=== PATIENT | female | born 1975 | race Caucasian/White ===

== ENCOUNTER 2016-06-21 04:12 | Observation (INO) ==
--- NOTE | 2016-06-21 04:34 | Emergency Department Note ---
Disposition Clinical Impression: Aspiration pneumonia, Vomiting Disposition: Admitted As Inpatient Condition: Fair Referrals: Nadira Glynn MD [Primary Care Provider] - Time of Disposition: 06:03 ([facility]) SOB HPI - General Stated Complaint: Possible aspiration Time Seen by Provider: 06/21/16 04:15 Source: EMS, other (correction) Mode of arrival: EMS Limitations: no limitations Nursing Notes Reviewed: Yes Vital Signs Reviewed: Yes - History of Present Illness Patient sent in from local correction for vomiting and risk of aspiration and have a decreased saturation they did not have access to suctioning she has a feeding tube in and quadriplegia patient unable to provide us with any other history Last bowel movement was approximately yesterday they said large in size they were doing to feeds and vomitus material was consistent with tube feeds Pt Subjective Complaint: shortness of breath (and reported hypoxia) Onset (ago): Just [employer] Context: other (vomitng episode) Severity: severe Consistency/Duration: gradually worsening Improves with: nothing Worsens with: lying flat, movement, other (vomiting) Known history of: recurrent pneumonia, aspiration pneumonia Associated symptoms: Reports: cough, sputum production Treatment prior to arrival: oxygen, bronchodilator Cough present: No Sputum production: No - Related Data Home Medications Medication Instructions Recorded Confirmed Atropine 1% Opth Drops 1 - 2 drp SL Q4-6H PRN 04/02/15 05/05/15 Baclofen [Lioresal] 20 mg GTUBE TID 04/02/15 05/05/15 Calcitonin-[place], Synthetic 1 spray IH DAILY 04/02/15 05/05/15 [Miacalcin] Lamotrigine [Lamictal] 300 mg GTUBE BID 04/02/15 05/05/15 Multivit/Ca/Min/Fe/FA [Thera M 1 each GTUBE DAILY 04/02/15 05/05/15 Plus] Polyethylene Glycol 3350 [MiraLAX] 17 gm GTUBE BID 04/02/15 05/05/15 Albuterol Neb [Proventil Neb] 10 mg RC PRN PRN 05/05/15 05/05/15 Diazepam [Diastat] 2.5 mg RC 05/05/15 05/05/15 Calcitonin,[place],Synthetic 200 units IN DAILY 02/17/16 02/17/16 [Calcitonin-[place]] Calcium Carbonate/Vitamin D3 1 tab PO DAILY 02/17/16 02/17/16 [Oyster Shell Calcium-Vit D Tab] Cholecalciferol (Vitamin D3) 2,000 unit PO DAILY 02/17/16 02/17/16 [Vitamin D3] Diazepam [Diastat Acudial] 10 mg IR PRN 02/17/16 DiphenhydraMINE [Benadryl] 25 mg PO Q6HR PRN 02/17/16 02/17/16 Loperamide [Imodium] 2 mg PO 02/17/16 Lovastatin [Mevacor] 20 mg PO HS 02/17/16 02/17/16 Pseudoephedrine [Sudafed] 60 mg PO Q6H PRN 02/17/16 02/17/16 Previous Rx's Medication Instructions Recorded Loratadine [Claritin] 10 mg GTUBE DAILY PRN #0 05/07/15 Magnesium Hydroxide [Milk of 15 ml GTUBE Q48H 365 Days 05/07/15 Magnesia] Allergies Allergy/AdvReac Type Severity Reaction Status Date / Time No Known Allergies Allergy Verified 05/05/15 20:33 Limitations: ROS unobtainable due to patients medical condition (except that women's health care nurse practitioner stated vomiting) Past Medical History - Past Medical History Attestation: Yes The following information was validated with the patient. Source: patient, old records reviewed, nursing notes reviewed Medical history: Reports: seizures, other (MRDD quadraplegia contractures of all extremitins) Psychiatric history: Reports: no psych history - Social History Smoking Status: Never smoker Smokeless Tobacco Status: No Alcohol use: Reports: none Drug use: Reports: none Physical Exam - General Limitations: language barrier, altered mental status, physical limitation General appearance: alert, in no apparent distress, other (no vomitng on example ) - Head Head exam: atraumatic, normocephalic, normal inspection - Eye Eye exam: Present: normal appearance, PERRL, EOMI - ENT ENT exam: normal exam, normal oropharynx, mucous membranes moist, TM's normal bilaterally, normal external ear exam - Neck Neck exam: Present: normal inspection, full ROM, trachea midline - Chest Chest inspection: Present: normal inspection, symmetric chest wall rise - Respiratory Respiratory exam: Present: wheezes, prolonged expiratory phase, other (rhonchi) - Cardiovascular Cardiovascular exam: Present: regular rate, normal rhythm, normal heart sounds - Abdominal Exam Abdominal exam: Present: soft, Non-Tender, normal bowel sounds, other (feeding tube present but when functioned no gstric contents) - Extremities Exam Extremities exam: Present: normal capillary refill, other (flexion contractions of the upper extremitinesand of the lower appearancelike that of extensions) - Expanded Lower Extremity Exam Neurovascular/Tendon exam: Present: normal capillary refill, normal fine/light touch. Absent: pulse deficit, motor deficit Gait: negative: observed and normal - Back Exam Back exam: Present: normal inspection, full ROM. Absent: muscle spasm - Neurological Exam Neurological exam: Present: alert, CN II-XII intact - Psychiatric Psychiatric exam: Present: flat affect, other (nonverbal) - Skin Skin exam: Present: warm, dry, intact, normal color Course Course Narrative: pt seen and examined and xrays and lab obtained when xrays reviled possible thickening between the loops then revaluation per ct was done to r/o obstruction - Reevaluation(s) Reevaluation #1: spoke with Dr Pimentel and admitted for obsv and transferred to [facility] Vital Signs Temperature 96.8 F L 06/21/16 04:15 Pulse Rate 64 06/21/16 04:15 Respiratory Rate 16 06/21/16 04:15 Blood Pressure 115/111 06/21/16 04:15 O2 Sat by Pulse Oximetry 97 06/21/16 04:15 Temperature 96.8 F L 06/21/16 04:15 Pulse Rate 64 06/21/16 04:15 Respiratory Rate 16 06/21/16 04:15 Blood Pressure 115/111 06/21/16 04:15 O2 Sat by Pulse Oximetry 97 06/21/16 04:15 Oxygen Delivery Oxygen Delivery Room Air Shortness of Breath/Dyspnea - MDM Narrative Medical decision making narrative: pneumonia vs aspiration pneumonia - Medical Records Medical records reviewed: Yes I reviewed the patient's medical records. - Lab Data Lab results reviewed: Yes I reviewed the patient's lab results. - Radiology Data Radiology results reviewed: Yes I reviewed the patient's radiology results. ITS Impressions Chest X-Ray 06/21/16 04:24 IMPRESSION: Limited study with focal peripheral opacity at the left lung base which may represent atelectasis or developing pneumonia. Recommend follow-up as D/ / Angel Cobian MD / Angel Cobian MD Interpreting Provider: Angel Cobian MD KUB X-Ray 06/21/16 04:24 IMPRESSION: Nonspecific nonobstructive bowel gas pattern Peg tube appears grossly unchanged in position Incidental note of cholelithiasis D/ / Angel Cobian MD / Angel Cobian MD Interpreting Provider: Angel Cobian MD Abdomen/Pelvis CT 06/21/16 04:36 IMPRESSION: 1. Left lower lobe centrilobular nodules could indicate aspiration or atypical infection. 2. Bilateral nonobstructing renal calculi with atrophy of the right kidney. 3. Cholelithiasis and gallbladder sludge with no CT evidence for acute cholecystitis. D/ / Keven Machuca MD / Keven Machuca MD Interpreting Provider: Keven Machuca MD Critical Care Time Critical Care Time: No
[2016-06-21 05:21] LABS: Basophils # 0.1 K/mcL (0.0-0.2); Basophils % 1.1 %; Eosinophils # 0.2 K/mcL (0.0-0.6); Eosinophils % 4.2 %; Hematocrit 45.8 % (35.3-44.9); Hemoglobin 15.1 g/dL (11.5-15.4); Immature Granulocytes % 0.2 % (0-4); Lymphocytes # 2.8 K/mcL (0.6-4.6); Lymphocytes % 50.4 %; Mean Corpuscular Hemoglobin 31.5 pg (28.0-33.3); Mean Corpuscular Volume 95.6 fL (83.0-100.0); Monocytes # 0.3 K/mcL (0.0-1.3); Monocytes % 5.5 %; Neutrophils # 2.1 K/mcL (1.6-8.9); Platelet Count 278 K/mcL (140-400); Red Blood Count 4.79 M/mcL (3.82-4.97); Red Cell Distribution Width 15.4 % (11.5-14.5); Segmented Neutrophils % 38.6 %
[2016-06-21 05:27] LABS: Prothrombin Time 11.1 Seconds (9.4-12.1)
[2016-06-21] MEDS ORDERED: CefTRIAXone 1,000 MG in D5% in Water (Mini-Bag+) 100 ML IVPB ONE (05:28)
[2016-06-21] MEDS ORDERED: Azithromycin 500 MG in D5% in Water 250 ML IVPB ONE ×2 (05:28→07:14)
[2016-06-21] MEDS ORDERED: 0.9 % Sodium Chloride 1,000 ML IVC SCH ×2 (05:30→07:14)
[2016-06-21 05:38] LABS: BUN/Creatinine Ratio 30 (6-26); Blood Urea Nitrogen 29 mg/dL (7-20); Calcium 10.7 mg/dL (8.6-10.8); Carbon Dioxide 25 mEq/L (19-29); Chloride 106 mEq/L (98-109); Glucose 73 mg/dL (70-99); Osmolality,Calculated 302 (280-300); Potassium 4.4 mEq/L (3.5-4.5); Sodium 144 mEq/L (136-145); eGFR For African Americans > 60 (> 60); eGFR For Non-African Americans > 60 (> 60)
[2016-06-21] MEDS ORDERED: Ondansetron 4 MG/2 ML VIAL IVP PRN (07:14)
[2016-06-21] MEDS ORDERED: Naloxone 0.4 MG/ML INJ IVP PRN (07:14)
[2016-06-21] MEDS ORDERED: *HR* Promethazine 25 MG/ML VIAL IVP PRN (07:14)
[2016-06-21] MEDS ORDERED: *HR* Morphine 2 MG/ML SYRINGE IVP PRN (07:14)
[2016-06-21] MEDS ORDERED: Azithromycin 500 MG in D5% in Water 250 ML IVPB SCH (07:30)
[2016-06-21] MEDS ORDERED: CefTRIAXone 1,000 MG in D5% in Water (Mini-Bag+) 100 ML IVPB SCH (08:30)
[2016-06-21] MEDS ORDERED: Pantoprazole 40 MG VIAL IVP SCH (09:00)
--- NOTE | 2016-06-21 12:32 | Internal Med History&Physical ---
Date of Encounter: 06/21/16 Time of Encounter: 12:20 Assessment and Plan (1) Aspiration pneumonia Current visit: Yes Status: Acute She was started on Rocephin and azithromycin through emergency room. I will change Rocephin to Zosyn and monitor clinically. We will also give lactobacillus. Qualifiers: Aspiration pneumonia type: unspecified Laterality: left Lung location: lower lobe of lung Qualified Code(s): J69.0 - Pneumonitis due to inhalation of food and vomit (2) UTI (urinary tract infection) Current visit: No Status: Acute Urine culture report June 16 showed VRE. She has received 5 days of appropriate antibiotic. I will discontinue further treatment since she is asymptomatic. Qualifiers: Urinary tract infection type: site unspecified Hematuria presence: with hematuria Qualified Code(s): N39.0 - Urinary tract infection, site not specified; R31.9 - Hematuria, unspecified Internal Medicine - H&P: HPI Chief complaint: Dyspnea and pneumonia Admitted From: Home Plans for Post Hospital Care: Home History of present illness: Ms. Noel is a 40 year old female who was sent from the shelter after she had vomiting and probable aspiration. Her oxygen saturation was reported to be decreased. She was evaluated in emergency room and felt to have left basilar pneumonia. [facility] for [facility] care needs. Her smoking history is not known. She does not have documented chronic lung disease. Past Med Surg Social Fam HX - Past Medical History Medical history: seizures, other (MRDD quadraplegia contractures of all extremitins) Psychiatric history: no psych history - Social History Smoking Status: Never smoker Smokeless Tobacco Status: No Alcohol use: none Drug use: none Internal Medicine - H&P: Meds Atropine 1% Opth Drops 1 - 2 drp SL Q4-6H PRN 04/02/15 [History] Baclofen [Lioresal] 20 mg GTUBE TID 04/02/15 [History] Calcitonin-[place], Synthetic [Miacalcin] 1 spray IH DAILY 04/02/15 [History] Lamotrigine [Lamictal] 300 mg GTUBE BID 04/02/15 [History] Multivit/Ca/Min/Fe/FA [Thera M Plus] 1 each GTUBE DAILY 04/02/15 [History] Polyethylene Glycol 3350 [MiraLAX] 17 gm GTUBE BID 04/02/15 [History] Albuterol Neb [Proventil Neb] 10 mg RC PRN PRN 05/05/15 [History] Diazepam [Diastat] 2.5 mg RC 05/05/15 [History] Loratadine [Claritin] 10 mg GTUBE DAILY PRN #0 05/07/15 [Rx] Magnesium Hydroxide [Milk of Magnesia] 15 ml GTUBE Q48H 365 Days 05/07/15 [Rx] Calcitonin,[place],Synthetic [Calcitonin-[place]] 200 units IN DAILY 02/17/16 [ History] Calcium Carbonate/Vitamin D3 [Oyster Shell Calcium-Vit D Tab] 1 tab PO DAILY [History] Cholecalciferol (Vitamin D3) [Vitamin D3] 2,000 unit PO DAILY 02/17/16 [History] Diazepam [Diastat Acudial] 10 mg IR PRN 02/17/16 [History] DiphenhydraMINE [Benadryl] 25 mg PO Q6HR PRN 02/17/16 [History] Loperamide [Imodium] 2 mg PO 02/17/16 [History] Lovastatin [Mevacor] 20 mg PO HS 02/17/16 [History] Pseudoephedrine [Sudafed] 60 mg PO Q6H PRN 02/17/16 [History] Allergies No Known Allergies Allergy (Verified 05/05/15 20:33) All Systems PM: A 10-system review of systems was performed and is negative for pertinent findings except as documented above in the HPI. Review of systems: Review of systems is unobtainable from the patient. Her ROS from the April 2015 [facility] hospitalization were reviewed and revised as below. Gen.: Her weight has increased from 44.18 kg at discharge April 2015 to 54.431 kg on admission now. Cardiovascular: There is no known hypertension heart failure angina DVT or pulmonary embolus Respiratory: As per history of present illness. GI: She has GERD by history. There is no known disorder of her liver gallbladder or exocrine pancreas. She had fecal impaction requiring disimpaction during her April 2015 hospitalization. : There is no mention of hematuria dysuria or kidney stones. She has had frequent UTIs reported Endocrine: There is no known diabetes thyroid disease or hyperlipidemia Hematology/oncology: She has a history of anemia that has resolved. She does not have other known blood disorders or internal malignancies Neurologic: She has a diagnoses of seizure disorder, encephalopathy, cortical blindness, and optic atrophy. Psychiatric: She has no known anxiety depression or other mental health issues Musculoskeletal: She has had fractures of the right radius, right tibia, right humeral head, and left humerus neck. - Constitutional Vitals: Temp Pulse Resp BP Pulse Ox 96.7 F L 55 16 140/84 100 06/21/16 10:50 06/21/16 10:50 06/21/16 10:50 06/21/16 10:50 06/21/16 10:50 Exam: Gen.: She is a well-developed well-nourished female lying in bed who appears in no acute distress. She has her eyes open but does not respond to voice or light touch HEENT: Head appears atraumatic and normocephalic. Eyes: EOMI. There is no scleral icterus. Mouth: She does not open her mouth for examination Neck: Supple and nontender. There is no thyromegaly or adenopathy noted. Heart: Regular without murmurs gallops or ectopics Lungs: No wheezes or crackles are heard. She appears to have some consolidation sounds in the left basilar area. Abdomen: G-tube is in place in the epigastric area. No masses or guarding are noted. Extremities: She has feet that appear small for her body. She has trace pitting edema of the dorsum of the feet. There is no significant edema the lower anterior shins. She has atrophy of the muscles of her arms and legs. Neurologic: Mental status: Her eyes are open but she does not respond to voice or light touch. Cranial nerves: Her gaze is conjugate. She does not follow commands for facial movements or eye movement etc. Motor: Her arms are in the flexed contraction position at the wrist and elbows. No further neurologic testing is attempted. Skin: Warm and dry. Internal Med - H&P Results - Labs CBC & Chem 7: 06/21/16 05:12 06/21/16 05:12
[2016-06-21] MEDS: 0.45 % Sodium Chloride w/KCl 20 MEQ/1,000 ML MLS IVC SCH (13:32)
[2016-06-21] MEDS: Piperacillin/Tazobactam 3.375 GM in D5% in Water (Mini-Bag+) 100 ML IVPB SCH ×2 (18:11→23:59)
[2016-06-22] MEDS ORDERED: CefTRIAXone 1,000 MG in D5% in Water (Mini-Bag+) 100 ML IVPB SCH (06:00)
[2016-06-22] MEDS: 0.45 % Sodium Chloride w/KCl 20 MEQ/1,000 ML MLS IVC SCH (06:12)
[2016-06-22] MEDS ORDERED: Azithromycin 500 MG in D5% in Water 250 ML IVPB SCH (07:00)
[2016-06-22 07:48] LABS: Basophils % 0.8 %; Eosinophils # 0.2 K/mcL (0.0-0.6); Hematocrit 42.5 % (35.3-44.9); Hemoglobin 14.3 g/dL (11.5-15.4); Lymphocytes # 1.1 K/mcL (0.6-4.6); Lymphocytes % 22.5 %; Mean Corpuscular HGB Conc 33.6 g/dL (31.6-35.5); Mean Corpuscular Hemoglobin 31.7 pg (28.0-33.3); Mean Corpuscular Volume 94.2 fL (83.0-100.0); Mean Platelet Volume 10.6 fL (9.4-12.4); Monocytes # 0.3 K/mcL (0.0-1.3); Monocytes % 5.1 %; Neutrophils # 3.5 K/mcL (1.6-8.9); Platelet Count 229 K/mcL (140-400); Red Blood Count 4.51 M/mcL (3.82-4.97); Red Cell Distribution Width 15.3 % (11.5-14.5); Segmented Neutrophils % 68.6 %
[2016-06-22] MEDS: Piperacillin/Tazobactam 3.375 GM in D5% in Water (Mini-Bag+) 100 ML IVPB SCH (08:57)
[2016-06-22 09:07] LABS: BUN/Creatinine Ratio 23 (6-26); Blood Urea Nitrogen 22 mg/dL (7-20); Calcium 9.8 mg/dL (8.6-10.8); Carbon Dioxide 21 mEq/L (19-29); Chloride 112 mEq/L (98-109); Glucose 92 mg/dL (70-99); Osmolality,Calculated 299 (280-300); Potassium 4.2 mEq/L (3.5-4.5); Sodium 143 mEq/L (136-145); eGFR For African Americans > 60 (> 60); eGFR For Non-African Americans > 60 (> 60)
[2016-06-22 10:35] VITALS: BP 128/95
--- NOTE | 2016-06-22 11:09 | Discharge Summary ---
Date of Encounter: 06/22/16 Time of Encounter: 10:55 - Discharge Diagnosis (1) Aspiration pneumonia Priority: Primary Status: Acute Qualifiers: Aspiration pneumonia type: unspecified Laterality: left Lung location: lower lobe of lung Qualified Code(s): J69.0 - Pneumonitis due to inhalation of food and vomit (2) UTI (urinary tract infection) Priority: Secondary Status: Acute Qualifiers: Urinary tract infection type: site unspecified Hematuria presence: with hematuria Qualified Code(s): N39.0 - Urinary tract infection, site not specified; R31.9 - Hematuria, unspecified - Discharge Medications Prescriptions: GuaiFENesin/Dextromethorphan [Robitussin/DM] 10 ml PO Q6HR 5 Days Amoxicillin/Clavulanate [Augmentin] 875 mg PO BIDWM 5 Days Lactobacillus [Culturelle] 1 each PO BID #10 cap.[email or web address] Home Medications: Atropine 1% Opth Drops 1 - 2 drp SL Q4-6H PRN 04/02/15 [History] Baclofen [Lioresal] 20 mg GTUBE TID 04/02/15 [History] Calcitonin-[place], Synthetic [Miacalcin] 1 spray IH DAILY 04/02/15 [History] Lamotrigine [Lamictal] 300 mg GTUBE BID 04/02/15 [History] Multivit/Ca/Min/Fe/FA [Thera M Plus] 1 each GTUBE DAILY 04/02/15 [History] Polyethylene Glycol 3350 [MiraLAX] 17 gm GTUBE BID 04/02/15 [History] Albuterol Neb [Proventil Neb] 10 mg RC PRN PRN 05/05/15 [History] Diazepam [Diastat] 2.5 mg RC 05/05/15 [History] Loratadine [Claritin] 10 mg GTUBE DAILY PRN #0 05/07/15 [Rx] Magnesium Hydroxide [Milk of Magnesia] 15 ml GTUBE Q48H 365 Days 05/07/15 [Rx] Calcitonin,[place],Synthetic [Calcitonin-[place]] 200 units IN DAILY 02/17/16 [ History] Calcium Carbonate/Vitamin D3 [Oyster Shell Calcium-Vit D Tab] 1 tab PO DAILY [History] Cholecalciferol (Vitamin D3) [Vitamin D3] 2,000 unit PO DAILY 02/17/16 [History] Diazepam [Diastat Acudial] 10 mg IR PRN 02/17/16 [History] DiphenhydraMINE [Benadryl] 25 mg PO Q6HR PRN 02/17/16 [History] Loperamide [Imodium] 2 mg PO 02/17/16 [History] Lovastatin [Mevacor] 20 mg PO HS 02/17/16 [History] Pseudoephedrine [Sudafed] 60 mg PO Q6H PRN 02/17/16 [History] Amoxicillin/Clavulanate [Augmentin] 875 mg PO BIDWM 5 Days 06/22/16 [Rx] GuaiFENesin/Dextromethorphan [Robitussin/DM] 10 ml PO Q6HR 5 Days 06/22/16 [Rx] Lactobacillus [Culturelle] 1 each PO BID #10 cap.[email or web address] 06/22/16 [Rx] Allergies/Adverse Reactions: Allergies No Known Allergies Allergy (Verified 05/05/15 20:33) Date of admission: 06/21/16 06:33 Primary care physician: Nadira Glynn Consults: 06/21/16 14:23 Consult to Quality Control Systems Manager [CONS] Routine Reason for SW Consult: D/C planning - Patient Status Disposition: Home, Self-Care Condition: Fair Overall status at discharge: patient is progressing back to baseline - Discharge Instructions Forms: ED Satisfaction Letter - Diet and Activity Activity: resume usual activities as tolerated Diet: advance to your usual diet Hospital course: Ms. Noel is a 40 year old female who was [facility] from the [facility] after she had vomiting and probable aspiration. Her oxygen saturation was reported to be decreased. She was evaluated in emergency room and felt to have left basilar pneumonia. She was admitted to [facility] floor for ongoing care needs. Initial orders were written by the emergency room physician. I saw her on June 21 and performed the history and physical. I reviewed the CT report of the abdomen/pelvis from emergency room which showed no significant bowel pathology. There was cholelithiasis and gallbladder sludge without CT evidence for acute cholecystitis seen. A significant amount of stool was seen in the bowel. There was evidence of left lower lobe pneumonia. She was started on Rocephin and Zithromax by the emergency room physician. I changed Rocephin to Zosyn to better cover anaerobes from aspiration. WBC on June 22 remain normal at 5.1 without left shift on the differential. I felt she could be discharged back to retirement and continue with antibiotic and probiotic for 5 additional days. Tube feeding can be reintroduced as tolerated. I did not think she needed further antibiotic treatment for previously documented VRE UTI. She will follow with Dr. Glynn at the retirement. - Time Spent with Patient Total time spent providing and/or coordinating discharge services: - Constitutional Vitals: Temp Pulse Resp BP Pulse Ox 97.5 F L 73 16 128/95 97 06/22/16 10:34 06/22/16 10:34 06/22/16 10:34 06/22/16 10:34 06/22/16 10:34
== END 2016-06-22 12:45 | disposition home or self-care (01) ==
LOC: INPPIK 04:12 → EMEROOPIK 04:12 → INPPIK 06:54
PROVIDERS: ADMIT Internal Medicine; ATTEND Internal Medicine

== ENCOUNTER 2016-08-04 03:04 | Observation (INO) ==
--- NOTE | 2016-08-04 03:18 | Emergency Department Note ---
Disposition Clinical Impression: Hypothermia, Urinary tract infection Disposition: Admitted As Inpatient Referrals: Nadira Glynn MD [Primary Care Provider] - Forms: Work/School Release, ED Satisfaction Letter Time of Disposition: 05:59 General Adult HPI - General Chief complaint: ED General Medical Stated complaint: Hypothermia Time Seen by Provider: 08/04/16 03:10 Source: other (longterm report) Mode of arrival: EMS Limitations: language barrier, physical limitation Nursing Notes Reviewed: Yes Vital Signs Reviewed: Yes - History of Present Illness HPI Narrative: 41-year-old female, quadriplegic, nonverbal, sent from [facility] for a temperature and drainage from her ear. No other history provided. No reported fever. No reported cough. No reported vomiting. 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 Associated symptoms: Reports: denies other symptoms - Related Data Home Medications Medication Instructions Recorded Confirmed Atropine 1% Opth Drops 1 - 2 drp SL Q4-6H PRN 04/02/15 08/04/16 Baclofen [Lioresal] 20 mg GTUBE TID 04/02/15 08/04/16 Lamotrigine [Lamictal] 300 mg GTUBE BID 04/02/15 08/04/16 Multivit/Ca/Min/Fe/FA [Thera M 1 each GTUBE DAILY 04/02/15 08/04/16 Plus] Polyethylene Glycol 3350 [MiraLAX] 17 gm GTUBE TID 04/02/15 08/04/16 Albuterol Neb [Proventil Neb] 10 mg RC PRN PRN 05/05/15 08/04/16 Calcitonin,[place],Synthetic 200 units IN DAILY 02/17/16 08/04/16 [Calcitonin-[place]] Calcium Carbonate/Vitamin D3 1 tab PO DAILY 02/17/16 08/04/16 [Oyster Shell Calcium-Vit D Tab] Cholecalciferol (Vitamin D3) 2,000 unit PO DAILY 02/17/16 08/04/16 [Vitamin D3] Diazepam [Diastat Acudial] 10 mg IR DAILY 02/17/16 08/04/16 DiphenhydraMINE [Benadryl] 25 mg PO Q6HR PRN 02/17/16 08/04/16 Loperamide [Imodium] 2 mg PO DAILY PRN 02/17/16 08/04/16 Lovastatin [Mevacor] 20 mg PO HS 02/17/16 08/04/16 Pseudoephedrine [Sudafed] 60 mg PO Q6H PRN 02/17/16 08/04/16 Medroxyprogesterone Acetate 150 mg IM PER PKG DI 06/23/16 08/04/16 [DEPO-Provera] Previous Rx's Medication Instructions Recorded Loratadine [Claritin] 10 mg GTUBE DAILY PRN #0 05/07/15 Magnesium Hydroxide [Milk of 15 ml GTUBE Q48H 365 Days 05/07/15 Magnesia] Sulfamethoxazole/Trimeth Oral 20 ml PO BID #400 oral.susp 07/06/16 [Bactrim Susp 400-80mg/10mL] Allergies Allergy/AdvReac Type Severity Reaction Status Date / Time No Known Allergies Allergy Verified 05/05/15 20:33 Limitations: ROS unobtainable due to patients medical condition (Patient is nonverbal and unable to provide review of systems) Past Medical History - Past Medical History Medical history: Reports: GERD, seizures, other Psychiatric history: Reports: no psych history 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 Absent: scleral icterus, conjunctival injection - ENT ENT exam: mucous membranes moist, TM's normal bilaterally, other (Bilateral cerumen drainage, right greater than left. No perforation. No blood.) - Neck Neck exam: Present: normal inspection, trachea midline. Absent: tenderness, lymphadenopathy - Chest Chest inspection: Present: normal inspection, symmetric chest wall rise - Respiratory Respiratory exam: Present: normal lung sounds bilaterally. Absent: respiratory distress, wheezes - Cardiovascular Cardiovascular exam: Present: regular rate, normal rhythm, normal heart sounds - Abdominal Exam Abdominal exam: Present: soft, Non-Tender, other (G-tube present). Absent: organomegaly, mass - Extremities Exam Extremities exam: Present: normal capillary refill, other (Atrophy, flaccid). Absent: pedal edema - Neurological Exam Neurological exam: Present: alert, other (Nonverbal. Quadriplegia.) - Psychiatric Psychiatric exam: Present: flat affect - Skin Skin exam: Present: warm, dry, intact, normal color. Absent: diaphoresis Course - Reevaluation(s) Reevaluation #1: Her rectal temperature here was 94. We will proceed with active rewarming. We will check for signs of dehydration, anemia, hypothyroidism, infection. Time: 03:19 Reevaluation #2: Rectal temperature is still 94. Will contact Dr. Pimentel. Time: 05:56 Reevaluation #3: Discussed with Dr. Pimentel. We will look at. Time: 05:59 Vital Signs Temperature 93.9 F L 08/04/16 03:21 Pulse Rate 58 08/04/16 03:21 Respiratory Rate 18 08/04/16 03:21 Blood Pressure 139/90 08/04/16 03:21 O2 Sat by Pulse Oximetry 99 08/04/16 03:21 Temperature 94.9 F L 08/04/16 05:34 Pulse Rate 54 08/04/16 05:22 Respiratory Rate 16 08/04/16 05:22 Blood Pressure 104/78 08/04/16 05:22 O2 Sat by Pulse Oximetry 94 L 08/04/16 05:22 Oxygen Delivery Oxygen Delivery Room Air Medical Decision Making - Lab Data Result diagrams: 08/04/16 04:00 08/04/16 04:00 Lab Results 08/04/16 08/04/16 08/04/16 Range/Units 03:14 04:00 04:00 WBC 5.5 (4.3-11.1) K/mcL RBC 4.26 (3.82-4.97) M/mcL Hgb 13.7 (11.5-15.4) g/dL Hct 41.5 (35.3-44.9) % MCV 97.4 D (83.0-100.0) fL MCH 32.2 (28.0-33.3) pg MCHC 33.0 (31.6-35.5) g/dL RDW 16.2 H (11.5-14.5) % Plt Count 266 (140-400) K/mcL MPV 11.3 (9.4-12.4) fL Immature Gran % 0.0 (0-4) % Seg Neutrophils % 31.5 % Lymphocytes % 56.3 % Monocytes % 7.1 % Eosinophils % 4.0 % Basophils % 1.1 % Neutrophils # 1.7 (1.6-8.9) K/mcL Lymphocytes # 3.1 (0.6-4.6) K/mcL Monocytes # 0.4 (0.0-1.3) K/mcL Eosinophils # 0.2 (0.0-0.6) K/mcL Basophils # 0.1 (0.0-0.2) K/mcL VBG Lactic Acid (0.5-2.2) mmol/L Sodium 143 (136-145) mEq/L Potassium 4.6 H (3.5-4.5) mEq/L Chloride 106 (98-109) mEq/L Carbon Dioxide 26 (19-29) mEq/L BUN 20 (7-20) mg/dL Creatinine 0.84 (0.57-1.11) mg/dL Est GFR ( Amer) > 60 (> 60) Est GFR (Non-Af Amer) > 60 (> 60) BUN/Creatinine Ratio 24 (6-26) Glucose 73 (70-99) mg/dL Calculated Osmolality 297 (280-300) Calcium 10.0 (8.6-10.8) mg/dL Total Bilirubin 0.3 (0.2-1.2) mg/dL AST 45 H (5-34) Units/L ALT 63 H (0-55) Units/L Alkaline Phosphatase 155 H (38-126) Units/L Serum Total Protein 7.6 (6.0-8.3) g/dL Albumin 3.2 L (3.5-5.0) g/dL Globulin 4.4 H (2.4-3.5) g/dL Albumin/Globulin Ratio 0.7 L (1.1-2.2) TSH (0.350-4.840) mcIU/mL Urine Color Yellow (Yellow) Urine Clarity Clear (Clear) Urine pH 7.0 (5.0-8.0) pH Units Ur Specific [place] 1.015 (1.010-1.025) Urine Protein Negative (Neg-Trace) mg/dL Urine Glucose (UA) Normal (Normal) mg/dL Urine Ketones Negative (Negative) mg/dL Urine Blood Negative (Negative) Urine Nitrite Negative (Negative) Urine Bilirubin Negative (Negative) Urine Urobilinogen Normal (Normal) mg/dL Ur Leukocyte Esterase Moderate H (Negative) Urine Microscopic WBC 15-30 H (0-3) per hpf Amorphous Sediment Few (Few) Urine Bacteria Few (None-Few) per hpf Ur Culture Indicated? YES A (NO) 08/04/16 08/04/16 Range/Units 04:00 04:00 WBC (4.3-11.1) K/mcL RBC (3.82-4.97) M/mcL Hgb (11.5-15.4) g/dL Hct (35.3-44.9) % MCV (83.0-100.0) fL MCH (28.0-33.3) pg MCHC (31.6-35.5) g/dL RDW (11.5-14.5) % Plt Count (140-400) K/mcL MPV (9.4-12.4) fL Immature Gran % (0-4) % Seg Neutrophils % % Lymphocytes % % Monocytes % % Eosinophils % % Basophils % % Neutrophils # (1.6-8.9) K/mcL Lymphocytes # (0.6-4.6) K/mcL Monocytes # (0.0-1.3) K/mcL Eosinophils # (0.0-0.6) K/mcL Basophils # (0.0-0.2) K/mcL VBG Lactic Acid 2.0 (0.5-2.2) mmol/L Sodium (136-145) mEq/L Potassium (3.5-4.5) mEq/L Chloride (98-109) mEq/L Carbon Dioxide (19-29) mEq/L BUN (7-20) mg/dL Creatinine (0.57-1.11) mg/dL Est GFR ( Amer) (> 60) Est GFR (Non-Af Amer) (> 60) BUN/Creatinine Ratio (6-26) Glucose (70-99) mg/dL Calculated Osmolality (280-300) Calcium (8.6-10.8) mg/dL Total Bilirubin (0.2-1.2) mg/dL AST (5-34) Units/L ALT (0-55) Units/L Alkaline Phosphatase (38-126) Units/L Serum Total Protein (6.0-8.3) g/dL Albumin (3.5-5.0) g/dL Globulin (2.4-3.5) g/dL Albumin/Globulin Ratio (1.1-2.2) TSH 1.903 (0.350-4.840) mcIU/mL Urine Color (Yellow) Urine Clarity (Clear) Urine pH (5.0-8.0) pH Units Ur Specific [place] (1.010-1.025) Urine Protein (Neg-Trace) mg/dL Urine Glucose (UA) (Normal) mg/dL Urine Ketones (Negative) mg/dL Urine Blood (Negative) Urine Nitrite (Negative) Urine Bilirubin (Negative) Urine Urobilinogen (Normal) mg/dL Ur Leukocyte Esterase (Negative) Urine Microscopic WBC (0-3) per hpf Amorphous Sediment (Few) Urine Bacteria (None-Few) per hpf Ur Culture Indicated? (NO) - EKG Data EKG #1 EKG attestation: Yes I reviewed and interpreted this EKG. EKG results narrative: Bradycardia, rate of 53, ectopic atrial focus, early repolarization, rhythm strip shows ectopic atrial bradycardia with a rate of 53, WV interval 142 ms, QRS 90 ms with no other ectopy as interpreted by me.
[2016-08-04 04:12] LABS: Basophils # 0.1 K/mcL (0.0-0.2); Basophils % 1.1 %; Eosinophils # 0.2 K/mcL (0.0-0.6); Hematocrit 41.5 % (35.3-44.9); Hemoglobin 13.7 g/dL (11.5-15.4); Lymphocytes # 3.1 K/mcL (0.6-4.6); Lymphocytes % 56.3 %; Mean Corpuscular Hemoglobin 32.2 pg (28.0-33.3); Mean Corpuscular Volume 97.4 fL (83.0-100.0); Mean Platelet Volume 11.3 fL (9.4-12.4); Monocytes # 0.4 K/mcL (0.0-1.3); Monocytes % 7.1 %; Neutrophils # 1.7 K/mcL (1.6-8.9); Platelet Count 266 K/mcL (140-400); Red Blood Count 4.26 M/mcL (3.82-4.97); Red Cell Distribution Width 16.2 % (11.5-14.5); Segmented Neutrophils % 31.5 %
[2016-08-04 04:28] LABS: Alanine Aminotransferase 63 Units/L (0-55); Albumin 3.2 g/dL (3.5-5.0); Albumin/Globulin Ratio 0.7 (1.1-2.2); Alkaline Phosphatase 155 Units/L (38-126); Aspartate Amino Transferase 45 Units/L (5-34); BUN/Creatinine Ratio 24 (6-26); Bilirubin,Total 0.3 mg/dL (0.2-1.2); Blood Urea Nitrogen 20 mg/dL (7-20); Carbon Dioxide 26 mEq/L (19-29); Chloride 106 mEq/L (98-109); Globulin 4.4 g/dL (2.4-3.5); Glucose 73 mg/dL (70-99); Osmolality,Calculated 297 (280-300); Potassium 4.6 mEq/L (3.5-4.5); Sodium 143 mEq/L (136-145); Total Protein 7.6 g/dL (6.0-8.3); eGFR For African Americans > 60 (> 60); eGFR For Non-African Americans > 60 (> 60)
[2016-08-04 05:19] LABS: Bilirubin,Urine Negative (Negative); Blood,Urine Negative (Negative); Clarity,Urine Clear (Clear); Color,Urine Yellow (Yellow); Glucose,Urine (UA) Normal (Normal); Ketones,Urine Negative (Negative); Leukocyte Esterase,Urine Moderate (Negative); Nitrite,Urine Negative (Negative); Protein,Urine Negative (Neg-Trace); Specific Gravity,Urine 1.015 (1.010-1.025); Urobilinogen,Urine Normal (Normal)
[2016-08-04 05:25] LABS: Amorphous Sediment,Urine Few (Few); WBC,Urine 15-30 per hpf (0-3)
[2016-08-04 05:26] LABS: Bacteria,Urine Few per hpf (None-Few)
[2016-08-04] MEDS ORDERED: CefTRIAXone 1,000 MG in D5% in Water (Mini-Bag+) 100 ML IVPB ONE (05:49)
[2016-08-04] MEDS ORDERED: 0.9 % Sodium Chloride 1,000 ML IVC SCH (06:30)
[2016-08-04] MEDS ORDERED: Loperamide 1 MG/5 ML UDC GTUBE PRN (06:30)
[2016-08-04] MEDS ORDERED: Naloxone 0.4 MG/ML INJ IVP PRN (06:30)
[2016-08-04] MEDS ORDERED: Albuterol 2.5 MG/3 ML NEBULIZER IH PRN ×2 (06:30→06:57)
[2016-08-04] MEDS ORDERED: Loratadine 10 MG TABLET GTUBE PRN (06:30)
[2016-08-04] MEDS ORDERED: Diazepam 10 MG/2 ML SYRINGE IVP PRN (07:36)
[2016-08-04] MEDS: MOM Conc 10 ML UD.LIQ GTUBE SCH (08:34)
[2016-08-04] MEDS: Sulfamethoxazole/Trimeth Oral Soln 400-80mg/10 ML UDC GTUBE SCH ×2 (08:50→20:54)
[2016-08-04] MEDS: Cholecalciferol (D-3) 1,000 UNIT TABLET PO SCH (08:50)
[2016-08-04] MEDS: Multivitamin Liquid 15 ML UDC GTUBE SCH (08:50)
[2016-08-04] MEDS: Baclofen 10 MG TABLET GTUBE SCH ×3 (08:51→20:54)
[2016-08-04] MEDS ORDERED: DIAZEPAM 10 MG IR SCH (09:00)
[2016-08-04] MEDS ORDERED: NON-FORMULARY MEDICATION 1 EACH EACH (Calcium Carbonate/Vitamin D3 [Oyster Shell Calcium-V PO SCH (09:00)
[2016-08-04] MEDS: CALCITONIN NASAL SPRAY NS SCH (09:02)
--- NOTE | 2016-08-04 09:07 | Electrocardiograph Report ---
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
--- NOTE | 2016-08-04 12:32 | Internal Med History&Physical ---
Date of Encounter: 08/04/16 Time of Encounter: 12:05 Assessment and Plan (1) Urinary tract infection Current visit: Yes Status: Acute She has been started on Rocephin and Septra empirically. Culture has been ordered. Lactobacillus will be started. Further workup will be done as needed. Qualifiers: Urinary tract infection type: site unspecified Hematuria presence: without hematuria Qualified Code(s): N39.0 - Urinary tract infection, site not specified Internal Medicine - H&P: HPI Chief complaint: Fever Admitted From: Home Plans for Post Hospital Care: Home History of present illness: Ms. Noel is a 41 year old female (nonverbal) who was sent from the longterm for evaluation after she was noted to have low temperature and drainage from an ear. No reports of fever, cough or vomiting. She was evaluated emergency room with temperature documented to be 93.9. There was questionable infiltrates on her chest x-ray. She was admitted to [facility] floor for ongoing care needs. She was hospitalized last at [facility] May 2016 with diagnosis of aspiration pneumonia. Smoking history is not known and she does not have documented chronic lung disease in available records. Past Med Surg Social Fam HX - Past Medical History Medical history: GERD, seizures, other Psychiatric history: no psych history - Social History Smoking Status: Never smoker Smokeless Tobacco Status: No Alcohol use: none Drug use: none Internal Medicine - H&P: Meds Atropine 1% Opth Drops 1 - 2 drp SL Q4-6H PRN 04/02/15 [History] Baclofen [Lioresal] 20 mg GTUBE TID 04/02/15 [History] Lamotrigine [Lamictal] 300 mg GTUBE BID 04/02/15 [History] Multivit/Ca/Min/Fe/FA [Thera M Plus] 1 each GTUBE DAILY 04/02/15 [History] Polyethylene Glycol 3350 [MiraLAX] 17 gm GTUBE TID 04/02/15 [History] Albuterol Neb [Proventil Neb] 10 mg RC PRN PRN 05/05/15 [History] Loratadine [Claritin] 10 mg GTUBE DAILY PRN #0 05/07/15 [Rx] Magnesium Hydroxide [Milk of Magnesia] 15 ml GTUBE Q48H 365 Days 05/07/15 [Rx] Calcitonin,[place],Synthetic [Calcitonin-[place]] 200 units IN DAILY 02/17/16 [ History] Calcium Carbonate/Vitamin D3 [Oyster Shell Calcium-Vit D Tab] 1 tab PO DAILY [History] Cholecalciferol (Vitamin D3) [Vitamin D3] 2,000 unit PO DAILY 02/17/16 [History] Diazepam [Diastat Acudial] 10 mg IR DAILY 02/17/16 [History] DiphenhydraMINE [Benadryl] 25 mg PO Q6HR PRN 02/17/16 [History] Loperamide [Imodium] 2 mg PO DAILY PRN 02/17/16 [History] Lovastatin [Mevacor] 20 mg PO HS 02/17/16 [History] Pseudoephedrine [Sudafed] 60 mg PO Q6H PRN 02/17/16 [History] Medroxyprogesterone Acetate [DEPO-Provera] 150 mg IM PER PKG DI 06/23/16 [ History] Sulfamethoxazole/Trimeth Oral [Bactrim Susp 400-80mg/10mL] 20 ml PO BID #400 oral.susp 07/06/16 [Rx] Allergies No Known Allergies Allergy (Verified 05/05/15 20:33) All Systems PM: A 10-system review of systems was performed and is negative for pertinent findings except as documented above in the HPI. Review of systems: Review of systems is unobtainable from the patient. Her ROS from the May 2016 [facility] hospitalization were reviewed and revised as below. Gen.: Her weight has increased from 44.18 kg at discharge April 2015 to 48.534 kg on admission now. Cardiovascular: There is no known hypertension heart failure angina DVT or pulmonary embolus Respiratory: As per history of present illness. GI: She has GERD by history. There is no known disorder of her liver gallbladder or exocrine pancreas. She had fecal impaction requiring disimpaction during her April 2015 hospitalization. : There is no mention of hematuria dysuria or kidney stones. She has had frequent UTIs reported Endocrine: There is no known diabetes thyroid disease or hyperlipidemia Hematology/oncology: She has a history of anemia that has resolved. She does not have other known blood disorders or internal malignancies Neurologic: She has a diagnoses of seizure disorder, encephalopathy, cortical blindness, and optic atrophy. Psychiatric: She has no known anxiety depression or other mental health issues Musculoskeletal: She has had fractures of the right radius, right tibia, right humeral head, and left humerus neck. - Constitutional Vitals: Temp Pulse Resp BP Pulse Ox 96.1 F L 60 18 113/58 94 L 08/04/16 06:28 08/04/16 06:03 08/04/16 06:28 08/04/16 06:28 08/04/16 06:03 Exam: Gen.: She is a well-developed well-nourished female lying quietly in bed on her left side. She appears in no severe distress. HEENT: Head is atraumatic and normocephalic. Eyes: EOMI. There is no scleral icterus. She has a disconjugate gaze. Mouth mucosa is moist. She is mouth breathing. Neck: Supple and nontender. There is no thyromegaly or adenopathy noted. Heart: Regular without murmurs gallops or ectopics. Lungs: No wheezes or crackles are heard. Abdomen: G-tube is in place in the left epigastric area. No masses or guarding are noted. Extremities: There is no cyanosis edema or clubbing noted. Dorsalis pedis and posterior tibial pulses are trace palpable. Her feet are warm to touch. He has formalities of her feet. She has contractures of her elbows wrists and hands. Neurologic: Mental status: She does not respond to voice or light touch. Motor : She does not move spontaneously. No further neurologic testing was attempted Skin: Warm and dry Internal Med - H&P Results - Labs CBC & Chem 7: 08/04/16 04:00 08/04/16 04:00
[2016-08-04] MEDS: Lactobacillus 1 EACH CAP.SPRINK GTUBE SCH (20:54)
[2016-08-05 05:39] LABS: Basophils % 0.6 %; Eosinophils # 0.2 K/mcL (0.0-0.6); Eosinophils % 2.8 %; Hematocrit 38.5 % (35.3-44.9); Hemoglobin 12.7 g/dL (11.5-15.4); Immature Granulocytes % 0.2 % (0-4); Lymphocytes # 2.6 K/mcL (0.6-4.6); Lymphocytes % 39.7 %; Mean Corpuscular Hemoglobin 31.9 pg (28.0-33.3); Mean Corpuscular Volume 96.7 fL (83.0-100.0); Mean Platelet Volume 11.5 fL (9.4-12.4); Monocytes # 0.4 K/mcL (0.0-1.3); Monocytes % 5.6 %; Neutrophils # 3.3 K/mcL (1.6-8.9); Platelet Count 254 K/mcL (140-400); Red Blood Count 3.98 M/mcL (3.82-4.97); Red Cell Distribution Width 16.4 % (11.5-14.5); Segmented Neutrophils % 51.1 %
[2016-08-05] MEDS: *HR* Enoxaparin 40 MG/0.4 ML SYRINGE SQ SCH (05:54)
[2016-08-05 05:59] LABS: BUN/Creatinine Ratio 23 (6-26); Blood Urea Nitrogen 19 mg/dL (7-20); Calcium 9.3 mg/dL (8.6-10.8); Carbon Dioxide 21 mEq/L (19-29); Chloride 113 mEq/L (98-109); Glucose 61 mg/dL (70-99); Osmolality,Calculated 298 (280-300); Potassium 4.5 mEq/L (3.5-4.5); Sodium 144 mEq/L (136-145); eGFR For African Americans > 60 (> 60); eGFR For Non-African Americans > 60 (> 60)
[2016-08-05] MEDS: Sulfamethoxazole/Trimeth Oral Soln 400-80mg/10 ML UDC GTUBE SCH ×2 (08:14→22:14)
[2016-08-05] MEDS: Cholecalciferol (D-3) 1,000 UNIT TABLET PO SCH (08:14)
[2016-08-05] MEDS: Multivitamin Liquid 15 ML UDC GTUBE SCH (08:14)
[2016-08-05] MEDS: CefTRIAXone 1,000 MG in D5% in Water (Mini-Bag+) 100 ML IVPB SCH (08:15)
[2016-08-05] MEDS: Baclofen 10 MG TABLET GTUBE SCH ×3 (08:15→22:14)
[2016-08-05] MEDS: Lactobacillus 1 EACH CAP.SPRINK GTUBE SCH ×2 (08:15→22:14)
[2016-08-05] MEDS: CALCITONIN NASAL SPRAY NS SCH (08:20)
--- NOTE | 2016-08-05 09:54 | Internal Med Progress Note ---
Date of Encounter: 08/05/16 Time of Encounter: 09:45 - Assessment and plan (1) Urinary tract infection Current Visit: Yes Status: Acute Assessment and plan: Continue Rocephin and Septra with lactobacillus. Anticipate discharge back to [facility] tomorrow if stable Qualifiers: Urinary tract infection type: site unspecified Hematuria presence: without hematuria Qualified Code(s): N39.0 - Urinary tract infection, site not specified - Subjective Interval history: August 05. She has no new problems. - Constitutional Vitals: Temp Pulse Resp BP Pulse Ox 96.4 F L 62 16 88/50 95 08/05/16 07:50 08/05/16 07:50 08/05/16 07:50 08/05/16 07:50 08/05/16 07:50 Exam: She is resting comfortably in bed. Her lungs show no wheezes or crackles. Heart is regular without murmurs gallops or ectopics. Her preliminary report of urine culture shows gram-positive organisms with final report pending. Internal Medicine: Result - Labs CBC & Chem 7: 08/05/16 04:35 08/05/16 04:35 Labs: Short CBC 08/05/16 Range/Units 04:35 WBC 6.5 (4.3-11.1) K/mcL Hgb 12.7 (11.5-15.4) g/dL Hct 38.5 (35.3-44.9) % Plt Count 254 (140-400) K/mcL Neutrophils # 3.3 (1.6-8.9) K/mcL BMP 08/05/16 04:35 Sodium 144 Potassium 4.5 Chloride 113 H Carbon Dioxide 21 BUN 19 Creatinine 0.84 Glucose 61 L Calcium 9.3 Consult Discharge Plan - Plan Referrals: Nadira Glynn MD [Primary Care Provider] - 1 week
[2016-08-06] MEDS: *HR* Enoxaparin 40 MG/0.4 ML SYRINGE SQ SCH (05:39)
[2016-08-06] MEDS: Sulfamethoxazole/Trimeth Oral Soln 400-80mg/10 ML UDC GTUBE SCH (09:41)
[2016-08-06] MEDS: Baclofen 10 MG TABLET GTUBE SCH ×3 (09:42→21:42)
[2016-08-06] MEDS: MOM Conc 10 ML UD.LIQ GTUBE SCH (09:42)
[2016-08-06] MEDS: Multivitamin Liquid 15 ML UDC GTUBE SCH (09:42)
[2016-08-06] MEDS: Lactobacillus 1 EACH CAP.SPRINK GTUBE SCH ×2 (09:42→21:43)
[2016-08-06] MEDS: CALCITONIN NASAL SPRAY NS SCH (09:43)
[2016-08-06] MEDS: Cholecalciferol (D-3) 1,000 UNIT TABLET PO SCH (09:43)
--- NOTE | 2016-08-06 13:27 | Internal Med Progress Note ---
Date of Encounter: 08/06/16 Time of Encounter: 13:15 - Assessment and plan (1) Urinary tract infection Current Visit: Yes Status: Acute Assessment and plan: August 05. Continue Rocephin and Septra with lactobacillus. Anticipate discharge back to custodial tomorrow if stable August 06. Urine culture shows Enterococcus faecalis with sensitivities noted. Discontinue Rocephin and Septra and give her Macrobid Qualifiers: Urinary tract infection type: site unspecified Hematuria presence: without hematuria Qualified Code(s): N39.0 - Urinary tract infection, site not specified (2) Diarrhea Current Visit: Yes Status: Acute Assessment and plan: August 06. Suspect due to Rocephin with MOM and MiraLAX.. We will discontinue Rocephin and Septra and give her Macrobid as per above. Qualifiers: Diarrhea type: unspecified type Qualified Code(s): R19.7 - Diarrhea, unspecified - Subjective Interval history: August 05. She has no new problems. August 06. She has developed diarrhea. - Constitutional Vitals: Temp Pulse Resp BP Pulse Ox 97.4 F L 57 14 81/59 95 08/06/16 11:14 08/06/16 11:14 08/06/16 11:14 08/06/16 11:14 08/06/16 11:14 Exam: She is lying in bed and appears in no acute distress. Abdomen is soft and nontender. Bowel sounds are present. I reviewed her medications labs vital signs and culture reports. Internal Medicine: Result - Labs CBC & Chem 7: 08/05/16 04:35 08/05/16 04:35 Consult Discharge Plan - Plan Referrals: Nadira Glynn MD [Primary Care Provider] - 1 week
[2016-08-06] MEDS: Nitrofurantoin (BID) 100 MG CAPSULE PO SCH (21:42)
[2016-08-07 06:00] LABS: Basophils # 0.1 K/mcL (0.0-0.2); Eosinophils # 0.2 K/mcL (0.0-0.6); Eosinophils % 3.8 %; Hemoglobin 12.9 g/dL (11.5-15.4); Immature Granulocytes % 0.2 % (0-4); Lymphocytes # 2.7 K/mcL (0.6-4.6); Lymphocytes % 53.1 %; Mean Corpuscular HGB Conc 33.1 g/dL (31.6-35.5); Mean Corpuscular Hemoglobin 31.9 pg (28.0-33.3); Mean Corpuscular Volume 96.3 fL (83.0-100.0); Monocytes # 0.4 K/mcL (0.0-1.3); Monocytes % 7.3 %; Neutrophils # 1.8 K/mcL (1.6-8.9); Platelet Count 244 K/mcL (140-400); Red Blood Count 4.05 M/mcL (3.82-4.97); Red Cell Distribution Width 16.4 % (11.5-14.5); Segmented Neutrophils % 34.6 %
[2016-08-07 06:25] LABS: Alanine Aminotransferase 50 Units/L (0-55); Albumin 2.9 g/dL (3.5-5.0); Albumin/Globulin Ratio 0.8 (1.1-2.2); Alkaline Phosphatase 157 Units/L (38-126); Aspartate Amino Transferase 36 Units/L (5-34); BUN/Creatinine Ratio 19 (6-26); Bilirubin,Total 0.2 mg/dL (0.2-1.2); Blood Urea Nitrogen 18 mg/dL (7-20); Calcium 9.4 mg/dL (8.6-10.8); Carbon Dioxide 22 mEq/L (19-29); Chloride 112 mEq/L (98-109); Globulin 3.7 g/dL (2.4-3.5); Glucose 70 mg/dL (70-99); Magnesium 2.7 mg/dL (1.6-2.6); Osmolality,Calculated 294 (280-300); Potassium 4.3 mEq/L (3.5-4.5); Sodium 142 mEq/L (136-145); Total Protein 6.6 g/dL (6.0-8.3); eGFR For African Americans > 60 (> 60); eGFR For Non-African Americans > 60 (> 60)
[2016-08-07] MEDS: *HR* Enoxaparin 40 MG/0.4 ML SYRINGE SQ SCH (06:29)
[2016-08-07] MEDS: CefTRIAXone 1,000 MG in D5% in Water (Mini-Bag+) 100 ML IVPB SCH (07:38)
[2016-08-07] MEDS: Multivitamin Liquid 15 ML UDC GTUBE SCH (10:12)
[2016-08-07] MEDS: Lactobacillus 1 EACH CAP.SPRINK GTUBE SCH (10:12)
[2016-08-07] MEDS: Cholecalciferol (D-3) 1,000 UNIT TABLET PO SCH (10:14)
[2016-08-07] MEDS: Baclofen 10 MG TABLET GTUBE SCH (10:15)
--- NOTE | 2016-08-07 10:32 | Discharge Summary ---
Date of Encounter: 08/07/16 Time of Encounter: 10:20 - Discharge Diagnosis (1) Urinary tract infection Priority: Primary Status: Acute Qualifiers: Urinary tract infection type: site unspecified Hematuria presence: without hematuria Qualified Code(s): N39.0 - Urinary tract infection, site not specified (2) Diarrhea Priority: Secondary Status: Acute Qualifiers: Diarrhea type: unspecified type Qualified Code(s): R19.7 - Diarrhea, unspecified - Discharge Medications Prescriptions: Nitrofurantoin [Macrodantin] 100 mg PO BID #6 capsule Home Medications: Atropine 1% Opth Drops 1 - 2 drp SL Q4-6H PRN 04/02/15 [History] Baclofen [Lioresal] 20 mg GTUBE TID 04/02/15 [History] Lamotrigine [Lamictal] 300 mg GTUBE BID 04/02/15 [History] Multivit/Ca/Min/Fe/FA [Thera M Plus] 1 each GTUBE DAILY 04/02/15 [History] Polyethylene Glycol 3350 [MiraLAX] 17 gm GTUBE TID 04/02/15 [History] Albuterol Neb [Proventil Neb] 10 mg RC PRN PRN 05/05/15 [History] Loratadine [Claritin] 10 mg GTUBE DAILY PRN #0 05/07/15 [Rx] Magnesium Hydroxide [Milk of Magnesia] 15 ml GTUBE Q48H 365 Days 05/07/15 [Rx] Calcitonin,[place],Synthetic [Calcitonin-[place]] 200 units IN DAILY 02/17/16 [ History] Calcium Carbonate/Vitamin D3 [[place]yster [place] Calcium-Vit D Tab] 1 tab PO DAILY [History] Cholecalciferol (Vitamin D3) [Vitamin D3] 2,000 unit PO DAILY 02/17/16 [History] Diazepam [Diastat Acudial] 10 mg IR DAILY 02/17/16 [History] DiphenhydraMINE [Benadryl] 25 mg PO Q6HR PRN 02/17/16 [History] Loperamide [Imodium] 2 mg PO DAILY PRN 02/17/16 [History] Lovastatin [Mevacor] 20 mg PO HS 02/17/16 [History] Pseudoephedrine [Sudafed] 60 mg PO Q6H PRN 02/17/16 [History] Medroxyprogesterone Acetate [Depo-Provera] 150 mg IM PER PKG DI 06/23/16 [ History] Nitrofurantoin [Macrodantin] 100 mg PO BID #6 capsule 08/07/16 [Rx] Allergies/Adverse Reactions: Allergies No Known Allergies Allergy (Verified 05/05/15 20:33) Date of admission: 08/04/16 06:13 Primary care physician: Nadira Glynn Consults: 08/04/16 07:13 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 Noel is a 41 year old female (nonverbal) who was sent from the detention for evaluation after she was noted to have low temperature and drainage from an ear. No reports of fever, cough or vomiting. She was evaluated in emergency room with temperature documented to be 93.9. There was questionable infiltrates on her chest x-ray. She was admitted to [facility] floor for ongoing care needs. Initial orders were written by the emergency room physician. I saw her on August 04 and performed the history and physical. She was started empirically on Rocephin and Septra. She remained clinically stable and temperature returned to normal range. She developed diarrhea so Rocephin was discontinued. Stool returned negative for C. difficile. Urine culture returned showing Enterococcus faecalis and she was placed on nitrofurantoin twice a day. There were no new problems otherwise and on August 07 I felt she was stable for discharge back to the detention. She will continue with antibiotic for 3 additional days. - Time Spent with Patient Total time spent providing and/or coordinating discharge services: - Constitutional Vitals: Temp Pulse Resp BP Pulse Ox 96.8 F L 47 16 104/65 98 08/07/16 07:32 08/07/16 07:32 08/07/16 07:32 08/07/16 07:32 08/07/16 07:32
[2016-08-07] MEDS: CALCITONIN NASAL SPRAY NS SCH (10:39)
[2016-08-07] MEDS: Nitrofurantoin (BID) 100 MG CAPSULE PO SCH (10:39)
[2016-08-07 13:14] VITALS: BP 114/73
== END 2016-08-07 14:10 | disposition home or self-care (01) ==
LOC: EMEROOPIK 03:04 → INPPIK 03:04
PROVIDERS: ADMIT Internal Medicine; ATTEND Internal Medicine

== ENCOUNTER 2016-10-15 05:31 | Inpatient (IN) ==
--- NOTE | 2016-10-15 06:13 | Emergency Department Note ---
Disposition Clinical Impression: Hypothermia Disposition: Admitted As Inpatient Condition: Good Referrals: Nadira Glynn MD [Primary Care Provider] - Forms: ED Satisfaction Letter Time of Disposition: 07:43 (Margaritoceferino Baldwin) URI/Sore Throat HPI - General Chief Complaint: ED Upper Respiratory Infection Stated Complaint: low temp, productive cough Time Seen by Provider: 10/15/16 05:33 Source: EMS, other ([facility]) Mode of arrival: ambulatory Limitations: altered mental status Nursing Notes Reviewed: Yes Vital Signs Reviewed: Yes - History of Present Illness HPI Narrative: Developmentally disabled 41-year-old female presents to the history of hypothermia notified by the [facility] that her temperature has been low she has had this previously been seen a couple weeks ago for similar event patient is unable to provide us with any history in regards to what is occurring unable to obtain any history from the patient due to her condition Pt Subjective Complaint: other (hypothermia) Onset (ago): day(s) (1) Duration: constant Associated symptoms: Reports: chills, nasal congestion - Related Data Home Medications Medication Instructions Recorded Confirmed Atropine 1% Opth Drops 1 - 2 drp SL Q4-6H PRN 04/02/15 08/04/16 Baclofen [Lioresal] 20 mg GTUBE TID 04/02/15 08/04/16 Multivit/Ca/Min/Fe/FA [Thera M 1 each GTUBE DAILY 04/02/15 08/04/16 Plus] Polyethylene Glycol 3350 [MiraLAX] 17 gm GTUBE TID 04/02/15 08/04/16 lamoTRIgine [Lamictal] 300 mg GTUBE BID 04/02/15 08/04/16 Albuterol Neb [Proventil Neb] 10 mg RC PRN PRN 05/05/15 08/04/16 Cholecalciferol (Vitamin D3) 2,000 unit PO DAILY 02/17/16 08/04/16 [Vitamin D3] Diazepam [Diastat Acudial] 10 mg IR DAILY 02/17/16 08/04/16 DiphenhydraMINE [Benadryl] 25 mg PO Q6HR PRN 02/17/16 08/04/16 Loperamide [Imodium] 2 mg PO DAILY PRN 02/17/16 08/04/16 Lovastatin [Mevacor] 20 mg PO HS 02/17/16 08/04/16 Pseudoephedrine [Sudafed] 60 mg PO Q6H PRN 02/17/16 08/04/16 Medroxyprogesterone Acetate 150 mg IM PER PKG DI 06/23/16 08/04/16 [Depo-Provera] Acetaminophen [Tylenol] 650 mg GTUBE Q4HR PRN 10/15/16 10/15/16 Alendronate Sodium [Fosamax] 70 mg PO QWEEK 10/15/16 10/15/16 Calcium Carbonate/Vitamin D3 2 each PO DAILY 10/15/16 10/15/16 [Oyster Shell 250 mg + Vit D Tb] Docusate [Colace] 100 mg GTUBE DAILY 10/15/16 10/15/16 Ibuprofen 400 mg PO Q4H PRN 10/15/16 10/15/16 Lactobacillus Combo No.11 1 each GTUBE DAILY 10/15/16 10/15/16 [Probiotic] Loratadine [Claritin] 10 mg GTUBE DAILY 10/15/16 10/15/16 Mag Hydrox/Aluminum Hyd/Simeth 30 ml GTUBE Q4H PRN 10/15/16 10/15/16 [Cvs Antacid-Antigas Liquid] Magnesium Hydroxide [Milk of 30 ml GTUBE Q72H PRN 10/15/16 10/15/16 Magnesia] Polyvinyl Alcohol [Artificial 1 drop OP DAILY 10/15/16 10/15/16 Tears] Saliva Stimulant [Biotene 1 each PO QSHIFT 10/15/16 10/15/16 Moisturizing Rinse] Allergies Allergy/AdvReac Type Severity Reaction Status Date / Time No Known Allergies Allergy Verified 05/05/15 20:33 Limitations: ROS unobtainable due to patients medical condition URI PMH - Past Medical History Medical history: Reports: GERD, seizures, other Psychiatric history: Reports: no psych history [employer] history: Reports: no [employer] history - Social History Smoking Status: Never smoker Alcohol use: Reports: none Drug use: Reports: none Physical Exam - General Limitations: altered mental status General appearance: alert, in no apparent distress, other (nonverbal) - Eye Eye exam: Present: normal appearance, PERRL, EOMI - ENT ENT exam: normal exam, normal oropharynx, mucous membranes dry, TM's normal bilaterally, normal external ear exam - Neck Neck exam: Present: normal inspection, full ROM, trachea midline - Chest Chest inspection: Present: normal inspection, symmetric chest wall rise - Respiratory Respiratory exam: Present: wheezes - Cardiovascular Cardiovascular exam: Present: regular rate, normal rhythm, normal heart sounds - Abdominal Exam Abdominal exam: Present: soft, Non-Tender, normal bowel sounds. Absent: mass, pulsatile mass - Extremities Exam Extremities exam: Present: normal inspection, normal capillary refill, other ( limited range of motion due to disability) - Expanded Lower Extremity Exam Gait: not tested/not observed - Back Exam Back exam: Present: normal inspection - Neurological Exam Neurological exam: Present: alert, CN II-XII intact - Psychiatric Psychiatric exam: Present: flat affect - Skin Skin exam: Present: warm, dry, intact Course Course Narrative: Patient immediately seen and evaluated laboratory data done to determine etiology for the hypothermia results pending Vital Signs Temperature 95.8 F L 10/15/16 05:33 Pulse Rate 73 10/15/16 05:33 Respiratory Rate 23 10/15/16 05:33 Blood Pressure 146/102 10/15/16 05:33 O2 Sat by Pulse Oximetry 98 10/15/16 05:33 Temperature 96.6 F L 10/15/16 06:49 Pulse Rate 79 10/15/16 07:16 Respiratory Rate 14 10/15/16 07:16 Blood Pressure 121/72 10/15/16 07:16 O2 Sat by Pulse Oximetry 96 10/15/16 07:16 Oxygen Delivery Oxygen Delivery Room Air Upper Respiratory Infection - MDM Narrative Medical decision making narrative: UTI potential for sepsis - Differential Diagnosis Differential Diagnosis: Likely: upper respiratory infection, pneumonia - Medical Records Medical records reviewed: Yes I reviewed the patient's medical records. - Lab Data Lab results reviewed: Yes I reviewed the patient's lab results. Result diagrams: 10/15/16 06:28 10/15/16 06:28 Lab Results 10/15/16 10/15/16 10/15/16 Range/Units 06:28 06:28 06:28 WBC 5.2 (4.3-11.1) K/mcL RBC 4.20 (3.82-4.97) M/mcL Hgb 13.6 (11.5-15.4) g/dL Hct 40.8 (35.3-44.9) % MCV 97.1 (83.0-100.0) fL MCH 32.4 (28.0-33.3) pg MCHC 33.3 (31.6-35.5) g/dL RDW 15.7 H (11.5-14.5) % Plt Count 222 (140-400) K/mcL MPV 10.8 (9.4-12.4) fL Immature Gran % 0.2 (0-4) % Seg Neutrophils % 56.0 % Lymphocytes % 32.5 % Monocytes % 7.0 % Eosinophils % 3.5 % Basophils % 0.8 % Neutrophils # 2.9 (1.6-8.9) K/mcL Lymphocytes # 1.7 (0.6-4.6) K/mcL Monocytes # 0.4 (0.0-1.3) K/mcL Eosinophils # 0.2 (0.0-0.6) K/mcL Basophils # 0.0 (0.0-0.2) K/mcL APTT 47.5 H (26.0-36.0) Seconds Sodium 147 H (136-145) mEq/L Potassium 4.1 (3.5-4.5) mEq/L Chloride 107 (98-109) mEq/L Carbon Dioxide 26 (19-29) mEq/L BUN 51 H (7-20) mg/dL Creatinine 1.19 H (0.57-1.11) mg/dL Est GFR ( Amer) > 60 (> 60) Est GFR (Non-Af Amer) 50 L (> 60) BUN/Creatinine Ratio 43 H (6-26) Glucose 78 (70-99) mg/dL Calculated Osmolality 317 H (280-300) Calcium 12.7 H (8.6-10.8) mg/dL B-Natriuretic Peptide (0-100) pg/mL 10/15/16 Range/Units 06:28 WBC (4.3-11.1) K/mcL RBC (3.82-4.97) M/mcL Hgb (11.5-15.4) g/dL Hct (35.3-44.9) % MCV (83.0-100.0) fL MCH (28.0-33.3) pg MCHC (31.6-35.5) g/dL RDW (11.5-14.5) % Plt Count (140-400) K/mcL MPV (9.4-12.4) fL Immature Gran % (0-4) % Seg Neutrophils % % Lymphocytes % % Monocytes % % Eosinophils % % Basophils % % Neutrophils # (1.6-8.9) K/mcL Lymphocytes # (0.6-4.6) K/mcL Monocytes # (0.0-1.3) K/mcL Eosinophils # (0.0-0.6) K/mcL Basophils # (0.0-0.2) K/mcL APTT (26.0-36.0) Seconds Sodium (136-145) mEq/L Potassium (3.5-4.5) mEq/L Chloride (98-109) mEq/L Carbon Dioxide (19-29) mEq/L BUN (7-20) mg/dL Creatinine (0.57-1.11) mg/dL Est GFR ( Amer) (> 60) Est GFR (Non-Af Amer) (> 60) BUN/Creatinine Ratio (6-26) Glucose (70-99) mg/dL Calculated Osmolality (280-300) Calcium (8.6-10.8) mg/dL B-Natriuretic Peptide 17 (0-100) pg/mL - Radiology Data Radiology results reviewed: Yes I reviewed the patient's radiology results. ITS Impressions Chest X-Ray 10/15/16 05:35 IMPRESSION: Low lung volumes. No acute cardiopulmonary disease D/ / Alessandro Caceres MD / Alessandro Caceres MD Interpreting Provider: Alessandro Caceres MD Critical Care Time Critical Care Time: No
[2016-10-15 06:42] LABS: Basophils % 0.8 %; Eosinophils # 0.2 K/mcL (0.0-0.6); Eosinophils % 3.5 %; Hematocrit 40.8 % (35.3-44.9); Hemoglobin 13.6 g/dL (11.5-15.4); Immature Granulocytes % 0.2 % (0-4); Lymphocytes # 1.7 K/mcL (0.6-4.6); Lymphocytes % 32.5 %; Mean Corpuscular HGB Conc 33.3 g/dL (31.6-35.5); Mean Corpuscular Hemoglobin 32.4 pg (28.0-33.3); Mean Corpuscular Volume 97.1 fL (83.0-100.0); Mean Platelet Volume 10.8 fL (9.4-12.4); Monocytes # 0.4 K/mcL (0.0-1.3); Neutrophils # 2.9 K/mcL (1.6-8.9); Platelet Count 222 K/mcL (140-400); Red Cell Distribution Width 15.7 % (11.5-14.5)
[2016-10-15 06:57] LABS: BUN/Creatinine Ratio 43 (6-26); Blood Urea Nitrogen 51 mg/dL (7-20); Calcium 12.7 mg/dL (8.6-10.8); Carbon Dioxide 26 mEq/L (19-29); Chloride 107 mEq/L (98-109); Glucose 78 mg/dL (70-99); Osmolality,Calculated 317 (280-300); Potassium 4.1 mEq/L (3.5-4.5); Sodium 147 mEq/L (136-145); eGFR For African Americans > 60 (> 60); eGFR For Non-African Americans 50 (> 60)
[2016-10-15 07:47] LABS: INR 1.1; Prothrombin Time 11.6 Seconds (9.4-12.1)
[2016-10-15 08:19] LABS: Bilirubin,Urine Negative (Negative); Blood,Urine Small (Negative); Clarity,Urine Slightly Cloudy (Clear); Glucose,Urine (UA) Normal (Normal); Ketones,Urine Negative (Negative); Leukocyte Esterase,Urine Large (Negative); Nitrite,Urine Negative (Negative); Protein,Urine Trace mg/dL (Neg-Trace); Specific Gravity,Urine 1.015 (1.010-1.025); Urobilinogen,Urine Normal (Normal)
[2016-10-15] MEDS ORDERED: Albuterol 2.5 MG/3 ML NEBULIZER AER PRN (08:24)
[2016-10-15] MEDS ORDERED: MOM Conc 10 ML UD.LIQ GTUBE PRN (08:24)
[2016-10-15] MEDS ORDERED: Ibuprofen 400 MG TABLET PO PRN (08:24)
[2016-10-15] MEDS ORDERED: Naloxone 0.4 MG/ML INJ IVP PRN (08:24)
[2016-10-15] MEDS ORDERED: Loperamide 1 MG/5 ML UDC GTUBE PRN (08:24)
[2016-10-15] MEDS ORDERED: Acetaminophen 325 MG TABLET PO PRN (08:24)
[2016-10-15] MEDS ORDERED: Mag Hydrox/Al Hydrox/Simeth 30 ML UDC GTUBE PRN (08:24)
[2016-10-15] MEDS ORDERED: 0.9 % Sodium Chloride 1,000 ML IVC SCH (08:24)
[2016-10-15] MEDS ORDERED: Ondansetron 4 MG/2 ML VIAL IVP PRN (08:24)
[2016-10-15] MEDS ORDERED: NON-FORMULARY MEDICATION 1 EACH EACH (Alendronate Sodium [Fosamax] 70 MG) PO SCH (08:24)
[2016-10-15 08:29] LABS: Color,Urine Light Yellow (Yellow)
[2016-10-15 08:30] LABS: Bacteria,Urine Moderate per hpf (None-Few); Mucus,Urine Few (Few); Squamous Epithelial Cell,Urine Few per lpf (None-Few); WBC,Urine 15-30 per hpf (0-3)
[2016-10-15] MEDS ORDERED: Saliva Stimulant 100ml BOTTLE PO SCH (09:00)
[2016-10-15] MEDS ORDERED: Loratadine 10 MG TABLET GTUBE SCH (09:00)
[2016-10-15] MEDS: Multivitamin Liquid 15 ML UDC GTUBE SCH (10:04)
[2016-10-15] MEDS: Artificial Tears SOLN 15 ML BOTTLE OP SCH (10:04)
[2016-10-15] MEDS: Docusate Oral Soln 100 MG/10 ML UDC GTUBE SCH (10:04)
[2016-10-15] MEDS: Cholecalciferol (D-3) 1,000 UNIT TABLET PO SCH (10:05)
[2016-10-15] MEDS: lamoTRIgine 100 MG TABLET GTUBE SCH ×2 (10:05→22:29)
[2016-10-15] MEDS: Baclofen 10 MG TABLET GTUBE SCH ×3 (10:05→22:30)
[2016-10-15] MEDS: Lactobacillus 1 EACH CAP.SPRINK GTUBE SCH (10:05)
[2016-10-15] MEDS: diazePAM 10 MG/2 ML SYRINGE IV SCH (10:06)
--- NOTE | 2016-10-15 16:24 | Internal Med History&Physical ---
Date of Encounter: 10/15/16 Time of Encounter: 16:00 Assessment and Plan (1) Hypothermia Current visit: Yes Status: Acute Now resolved with most recent temperature recorded at 97.5. Qualifiers: Encounter type: initial encounter Qualified Code(s): T68.XXXA - Hypothermia , initial encounter (2) Acute renal insufficiency Current visit: Yes Status: Acute She has been ordered IV fluids. Follow-up labs will be done in a.m. (3) Urinary tract infection Current visit: No Status: Acute Urine culture results pending. Will order Rocephin and continue lactobacillus. Qualifiers: Urinary tract infection type: site unspecified Hematuria presence: without hematuria Qualified Code(s): N39.0 - Urinary tract infection, site not specified Internal Medicine - H&P: HPI Chief complaint: Hypothermia Admitted From: Home Plans for Post Hospital Care: Home History of present illness: Ms. Noel is a 41 year old female who was sent from the [place] [facility] after she was found to have hypothermia. Her temperature at the [place] [facility] was not recorded in the emergency room record. Her temperature in emergency room was 95.8. She also had acute renal insufficiency. She was admitted to [facility] floor for ongoing care needs. She was hospitalized most recently at [facility] July 2016 with hypothermia and urinary tract infection. She is nonverbal and noncommunicative. Past Med Surg Social Fam HX - Past Medical History Medical history: GERD, seizures, other Psychiatric history: no psych history - Social History Smoking Status: Never smoker Smokeless Tobacco Status: No Alcohol use: none Drug use: none - Family History Mother History Unknown: Yes Internal Medicine - H&P: Meds Atropine 1% Opth Drops 1 - 2 drp SL Q4-6H PRN 04/02/15 [History] Baclofen [Lioresal] 20 mg GTUBE TID 04/02/15 [History] Multivit/Ca/Min/Fe/FA [Thera M Plus] 1 each GTUBE DAILY 04/02/15 [History] Polyethylene Glycol 3350 [MiraLAX] 17 gm GTUBE TID 04/02/15 [History] lamoTRIgine [Lamictal] 300 mg GTUBE DAILY 04/02/15 [History] Albuterol Neb [Proventil Neb] 10 mg RC PRN PRN 05/05/15 [History] Cholecalciferol (Vitamin D3) [Vitamin D3] 2,000 unit PO DAILY 02/17/16 [History] Diazepam [Diastat Acudial] 10 mg IR DAILY 02/17/16 [History] DiphenhydraMINE [Benadryl] 25 mg PO Q6HR PRN 02/17/16 [History] Loperamide [Imodium] 2 mg PO DAILY PRN 02/17/16 [History] Lovastatin [Mevacor] 20 mg PO HS 02/17/16 [History] Pseudoephedrine [Sudafed] 60 mg PO Q6H PRN 02/17/16 [History] Medroxyprogesterone Acetate [Depo-Provera] 150 mg IM [id number] 06/23/16 [History] Acetaminophen [Tylenol] 650 mg GTUBE Q4HR PRN 10/15/16 [History] Alendronate Sodium [Fosamax] 70 mg PO QWEEK 10/15/16 [History] Calcium Carbonate/Vitamin D3 [Oyster Shell 250 mg + Vit D Tb] 2 each PO DAILY [History] Docusate [Colace] 100 mg GTUBE DAILY 10/15/16 [History] Ibuprofen 400 mg PO Q4H PRN 10/15/16 [History] Lactobacillus Combo No.11 [Probiotic] 1 each GTUBE DAILY 10/15/16 [History] Loratadine [Claritin] 10 mg GTUBE DAILY 10/15/16 [History] Mag Hydrox/Aluminum Hyd/Simeth [Cvs Antacid-Antigas Liquid] 30 ml GTUBE Q4H PRN 10/15/16 [History] Magnesium Hydroxide [Milk of Magnesia] 30 ml GTUBE Q72H PRN 10/15/16 [History] Polyvinyl Alcohol [Artificial Tears] 1 drop OP DAILY 10/15/16 [History] Saliva Stimulant [Biotene Moisturizing Rinse] 1 each PO QSHIFT 10/15/16 [History ] Allergies No Known Allergies Allergy (Verified 05/05/15 20:33) All Systems PM: A 10-system review of systems was performed and is negative for pertinent findings except as documented above in the HPI. Review of systems: Review of systems is unobtainable from the patient. Her ROS from the July 2016 [facility] hospitalization were reviewed and revised as below. Gen.: Her weight has increased from 44.18 kg at discharge April 2015 to 51.075 kg on admission now. Cardiovascular: There is no known hypertension heart failure angina DVT or pulmonary embolus Respiratory: Smoking history is not known. She does not have documented chronic lung disease in available records. GI: She has GERD by history. There is no known disorder of her liver gallbladder or exocrine pancreas. She had fecal impaction requiring disimpaction during her April 2015 hospitalization. : There is no mention of hematuria dysuria or kidney stones. She has had frequent UTIs reported Endocrine: There is no known diabetes thyroid disease or hyperlipidemia Hematology/oncology: She has a history of anemia that has resolved. She does not have other known blood disorders or internal malignancies Neurologic: She has a diagnoses of seizure disorder, encephalopathy, cortical blindness, and optic atrophy. Psychiatric: She has no known anxiety depression or other mental health issues Musculoskeletal: She has had fractures of the right radius, right tibia, right humeral head, and left humerus neck. 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 - Constitutional Vitals: Temp Pulse Resp BP Pulse Ox 97.5 F L 73 17 92/60 93 10/15/16 15:08 10/15/16 15:08 10/15/16 15:08 10/15/16 15:08 10/15/16 15:08 Exam: Gen.: She is a well-developed well-nourished female lying in bed who appears in no acute distress. HEENT: Head is atraumatic and normocephalic. Eyes: She has a disconjugate gaze. There is no scleral icterus. Mouth: Mucosa is moist. She has saliva drooling from the left side of her mouth. She has flushing of her cheeks. Neck: There is no thyromegaly or adenopathy noted. Heart: Regular with rate approximately 100/m. No murmurs or gallops are heard. Lungs: Clear anteriorly and laterally. Abdomen: G-tube is in place in epigastric area. The abdomen is nontender to palpation. 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 Her feet appear small overall. There is no edema of the dorsum of the feet or lower anterior shins bilaterally. Neurologic: Mental status: She is nonverbal and non-communicative. Cranial nerves: She has a disconjugate gaze. EOM movement is not observed. She does not follow commands or make spontaneous movements. Motor: She has equal arm tone on passive range of motion of her arms. No further neurologic testing is attempted. Skin: Warm and dry Internal Med - H&P Results - Labs CBC & Chem 7: 10/15/16 06:28 10/15/16 06:28 Labs: Urine 10/15/16 Range/Units 08:15 Urine Color Light Yellow (Yellow) Urine Clarity Slightly Cloudy A (Clear) Urine pH 8.0 (5.0-8.0) pH Units Ur Specific Butler 1.015 (1.010-1.025) Urine Protein Trace (Neg-Trace) mg/dL Urine Glucose (UA) Normal (Normal) mg/dL
[2016-10-16 06:41] LABS: Basophils % 0.5 %; Eosinophils # 0.2 K/mcL (0.0-0.6); Eosinophils % 2.3 %; Hematocrit 36.8 % (35.3-44.9); Hemoglobin 12.1 g/dL (11.5-15.4); Immature Granulocytes % 0.2 % (0-4); Lymphocytes % 30.9 %; Mean Corpuscular HGB Conc 32.9 g/dL (31.6-35.5); Mean Corpuscular Hemoglobin 32.3 pg (28.0-33.3); Mean Corpuscular Volume 98.1 fL (83.0-100.0); Monocytes # 0.4 K/mcL (0.0-1.3); Monocytes % 6.4 %; Platelet Count 190 K/mcL (140-400); Red Blood Count 3.75 M/mcL (3.82-4.97); Red Cell Distribution Width 15.8 % (11.5-14.5); Segmented Neutrophils % 59.7 %
[2016-10-16 06:59] LABS: Albumin 2.8 g/dL (3.5-5.0); Albumin/Globulin Ratio 0.8 (1.1-2.2); Bilirubin,Total 0.3 mg/dL (0.2-1.2); Calcium 11.3 mg/dL (8.6-10.8); Globulin 3.7 g/dL (2.4-3.5); Potassium 4.1 mEq/L (3.5-4.5); Total Protein 6.5 g/dL (6.0-8.3)
--- NOTE | 2016-10-16 09:51 | Internal Med Progress Note ---
Date of Encounter: 10/16/16 Time of Encounter: 09:40 - Assessment and plan (1) Hypothermia Current Visit: Yes Status: Acute Assessment and plan: October 16. Continue thermal blankets Qualifiers: Encounter type: initial encounter Qualified Code(s): T68.XXXA - Hypothermia , initial encounter (2) Acute renal insufficiency Current Visit: Yes Status: Acute Assessment and plan: Creatinine has risen to 1.32. Continue IV fluids, discontinue NSAID, and recheck labs in a.m. (3) Urinary tract infection Current Visit: No Status: Acute Assessment and plan: October 16. Continue empiric Rocephin with lactobacillus. Qualifiers: Urinary tract infection type: site unspecified Hematuria presence: without hematuria Qualified Code(s): N39.0 - Urinary tract infection, site not specified (4) Hypercalcemia Current Visit: Yes Status: Acute Assessment and plan: October 16. Will discontinue calcium and vitamin D supplements - Subjective Interval history: October 16. No new problems have arisen. She remains non-communicative - Constitutional Vitals: Temp Pulse Resp BP Pulse Ox 94.3 F L 77 12 128/85 95 10/16/16 09:35 10/16/16 09:35 10/16/16 09:35 10/16/16 09:35 10/16/16 09:35 Exam: She is lying in bed without response to voice or light touch. Her eyes are open. Heart is regular without murmurs gallops or ectopics. Lungs are clear anteriorly. I reviewed her medications and lab results. Internal Medicine: Result - Labs CBC & Chem 7: 10/16/16 06:15 10/16/16 06:15 Labs: Short CBC 10/16/16 Range/Units 06:15 WBC 6.6 (4.3-11.1) K/mcL Hgb 12.1 D (11.5-15.4) g/dL Hct 36.8 (35.3-44.9) % Plt Count 190 (140-400) K/mcL Neutrophils # 4.0 (1.6-8.9) K/mcL BMP 10/16/16 06:15 Sodium 147 H Potassium 4.1 Chloride 112 H Carbon Dioxide 24 BUN 42 H Creatinine 1.32 H Glucose 66 L Calcium 11.3 H Liver Function 10/16/16 Range/Units 06:15 Total Bilirubin 0.3 (0.2-1.2) mg/dL AST 29 (5-34) Units/L ALT 48 (0-55) Units/L Alkaline Phosphatase 145 H (38-126) Units/L Albumin 2.8 L (3.5-5.0) g/dL - ABG Interpretation ABG results: PT/INR, D-dimer PT 11.6 Seconds (9.4-12.1) 10/15/16 06:28 Consult Discharge Plan - Plan Referrals: Nadira Glynn MD [Primary Care Provider] - 1 week
[2016-10-16] MEDS: Artificial Tears SOLN 15 ML BOTTLE OP SCH (10:13)
[2016-10-16] MEDS: Docusate Oral Soln 100 MG/10 ML UDC GTUBE SCH (10:16)
[2016-10-16] MEDS: lamoTRIgine 100 MG TABLET GTUBE SCH ×2 (10:17→21:05)
[2016-10-16] MEDS: Multivitamin Liquid 15 ML UDC GTUBE SCH (10:17)
[2016-10-16] MEDS: Lactobacillus 1 EACH CAP.SPRINK GTUBE SCH (10:17)
[2016-10-16] MEDS: Baclofen 10 MG TABLET GTUBE SCH ×3 (16:02→21:05)
[2016-10-16] MEDS: Cholecalciferol (D-3) 1,000 UNIT TABLET PO SCH (17:17)
[2016-10-16] MEDS: diazePAM 10 MG/2 ML SYRINGE IV SCH (17:17)
[2016-10-16] MEDS: diazePAM 5 MG TABLET PO SCH (21:05)
[2016-10-17 05:38] LABS: Basophils % 0.4 %; Eosinophils # 0.1 K/mcL (0.0-0.6); Eosinophils % 1.1 %; Hematocrit 35.8 % (35.3-44.9); Hemoglobin 11.7 g/dL (11.5-15.4); Immature Granulocytes % 0.2 % (0-4); Lymphocytes # 1.9 K/mcL (0.6-4.6); Lymphocytes % 20.7 %; Mean Corpuscular HGB Conc 32.7 g/dL (31.6-35.5); Mean Corpuscular Hemoglobin 31.9 pg (28.0-33.3); Mean Corpuscular Volume 97.5 fL (83.0-100.0); Mean Platelet Volume 11.2 fL (9.4-12.4); Monocytes # 0.5 K/mcL (0.0-1.3); Monocytes % 4.9 %; Neutrophils # 6.7 K/mcL (1.6-8.9); Platelet Count 169 K/mcL (140-400); Red Blood Count 3.67 M/mcL (3.82-4.97); Red Cell Distribution Width 15.9 % (11.5-14.5); Segmented Neutrophils % 72.7 %
[2016-10-17 05:56] LABS: Albumin 2.6 g/dL (3.5-5.0); Albumin/Globulin Ratio 0.7 (1.1-2.2); Bilirubin,Total 0.3 mg/dL (0.2-1.2); Calcium 9.6 mg/dL (8.6-10.8); Globulin 3.5 g/dL (2.4-3.5); Potassium 3.9 mEq/L (3.5-4.5); Total Protein 6.1 g/dL (6.0-8.3)
[2016-10-17] MEDS: Multivitamin Liquid 15 ML UDC GTUBE SCH (10:51)
[2016-10-17] MEDS: lamoTRIgine 100 MG TABLET GTUBE SCH (10:52)
[2016-10-17] MEDS: Baclofen 10 MG TABLET GTUBE SCH ×3 (10:52→23:31)
[2016-10-17] MEDS: Lactobacillus 1 EACH CAP.SPRINK GTUBE SCH (10:52)
[2016-10-17] MEDS: Docusate Oral Soln 100 MG/10 ML UDC GTUBE SCH ×2 (10:52→23:32)
--- NOTE | 2016-10-17 11:21 | Internal Med Progress Note ---
Date of Encounter: 10/17/16 Time of Encounter: 11:10 - Assessment and plan (1) Hypothermia Current Visit: Yes Status: Acute Assessment and plan: October 16. Continue thermal blankets October 17. Improved. Continue present care Qualifiers: Encounter type: initial encounter Qualified Code(s): T68.XXXA - Hypothermia , initial encounter (2) Acute renal insufficiency Current Visit: Yes Status: Acute Assessment and plan: October 16. Creatinine has risen to 1.32. Continue IV fluids, discontinue NSAID, and recheck labs in a.m. October 17. Creatinine is stable. BUN has decreased to 29. We will decrease IV fluid rate. (3) Urinary tract infection Current Visit: No Status: Acute Assessment and plan: October 16. Continue empiric Rocephin with lactobacillus. October 17. Urine culture returned showing Proteus. Continue Rocephin with lactobacillus. Anticipate discharge to [facility] tomorrow. Qualifiers: Urinary tract infection type: site unspecified Hematuria presence: without hematuria Qualified Code(s): N39.0 - Urinary tract infection, site not specified (4) Hypercalcemia Current Visit: Yes Status: Acute Assessment and plan: October 16. Will discontinue calcium and vitamin D supplements October 17. Resolved. Continue to withhold calcium and vitamin D. (5) Urinary retention Current Visit: Yes Status: Acute Assessment and plan: October 17. We will discontinue Cheek and see if spontaneous voiding occurs. - Subjective Interval history: October 16. No new problems have arisen. She remains non-communicative October 17. She had urinary retention yesterday with Cheek catheter inserted. - Constitutional Vitals: Temp Pulse Resp BP Pulse Ox 97.6 F 79 16 92/56 95 10/17/16 07:03 10/17/16 07:03 10/17/16 07:03 10/17/16 07:03 10/17/16 07:03 Exam: She is resting comfortably in bed. She is receiving a G-tube feeding at this time. I her medications and lab results Internal Medicine: Result - Labs CBC & Chem 7: 10/17/16 05:20 10/17/16 05:20 Labs: Short CBC 10/17/16 Range/Units 05:20 WBC 9.2 (4.3-11.1) K/mcL Hgb 11.7 (11.5-15.4) g/dL Hct 35.8 (35.3-44.9) % Plt Count 169 (140-400) K/mcL Neutrophils # 6.7 (1.6-8.9) K/mcL BMP 10/17/16 05:20 Sodium 143 Potassium 3.9 Chloride 111 H Carbon Dioxide 21 BUN 29 H D Creatinine 1.33 H Glucose 64 L Calcium 9.6 D Liver Function 10/17/16 Range/Units 05:20 Total Bilirubin 0.3 (0.2-1.2) mg/dL AST 24 (5-34) Units/L ALT 40 (0-55) Units/L Alkaline Phosphatase 154 H (38-126) Units/L Albumin 2.6 L (3.5-5.0) g/dL - ABG Interpretation ABG results: PT/INR, D-dimer PT 11.6 Seconds (9.4-12.1) 10/15/16 06:28 Consult Discharge Plan - Plan Referrals: Nadira Glynn MD [Primary Care Provider] - 1 week
[2016-10-17] MEDS ORDERED: MOM Conc 10 ML UD.LIQ GTUBE PRN (13:49)
[2016-10-17] MEDS: diazePAM 5 MG TABLET PO SCH (14:07)
[2016-10-17] MEDS ORDERED: diazePAM 5 MG TABLET PO PRN (14:08)
[2016-10-17] MEDS: Artificial Tears SOLN 15 ML BOTTLE OP SCH (17:03)
[2016-10-17] MEDS: *HR* Enoxaparin 40 MG/0.4 ML SYRINGE SQ SCH (17:05)
[2016-10-17] MEDS ORDERED: lamoTRIgine 100 MG TABLET GTUBE SCH (21:00)
[2016-10-18] MEDS: *HR* Enoxaparin 40 MG/0.4 ML SYRINGE SQ SCH (05:25)
[2016-10-18 06:42] LABS: Basophils % 0.7 %; Eosinophils # 0.1 K/mcL (0.0-0.6); Eosinophils % 2.6 %; Hematocrit 35.5 % (35.3-44.9); Hemoglobin 11.4 g/dL (11.5-15.4); Immature Granulocytes % 0.2 % (0-4); Lymphocytes % 52.2 %; Mean Corpuscular HGB Conc 32.1 g/dL (31.6-35.5); Mean Corpuscular Hemoglobin 32.1 pg (28.0-33.3); Mean Platelet Volume 11.1 fL (9.4-12.4); Monocytes # 0.2 K/mcL (0.0-1.3); Monocytes % 5.3 %; Neutrophils # 1.7 K/mcL (1.6-8.9); Platelet Count 155 K/mcL (140-400); Red Blood Count 3.55 M/mcL (3.82-4.97); Red Cell Distribution Width 15.9 % (11.5-14.5)
[2016-10-18 06:49] LABS: Lymphocytes # 2.2 K/mcL (0.6-4.6)
[2016-10-18 07:02] LABS: BUN/Creatinine Ratio 22 (6-26); Blood Urea Nitrogen 25 mg/dL (7-20); Calcium 9.4 mg/dL (8.6-10.8); Carbon Dioxide 21 mEq/L (19-29); Chloride 112 mEq/L (98-109); Glucose 74 mg/dL (70-99); Osmolality,Calculated 301 (280-300); Potassium 3.9 mEq/L (3.5-4.5); Sodium 144 mEq/L (136-145); eGFR For African Americans > 60 (> 60); eGFR For Non-African Americans 53 (> 60)
[2016-10-18] MEDS ORDERED: lamoTRIgine 100 MG TABLET GTUBE SCH (09:00)
[2016-10-18 11:07] VITALS: BP 109/70
[2016-10-18] MEDS: Lactobacillus 1 EACH CAP.SPRINK GTUBE SCH (11:08)
[2016-10-18] MEDS: Baclofen 10 MG TABLET GTUBE SCH (11:08)
[2016-10-18] MEDS: Docusate Oral Soln 100 MG/10 ML UDC GTUBE SCH (11:08)
[2016-10-18] MEDS: Multivitamin Liquid 15 ML UDC GTUBE SCH (11:08)
[2016-10-18] MEDS: Artificial Tears SOLN 15 ML BOTTLE OP SCH (11:10)
--- NOTE | 2016-10-18 12:44 | Discharge Summary ---
Date of Encounter: 10/18/16 Time of Encounter: 09:45 - Discharge Diagnosis (1) Hypothermia Priority: Primary Status: Acute Qualifiers: Encounter type: initial encounter Qualified Code(s): T68.XXXA - Hypothermia , initial encounter (2) Acute renal insufficiency Priority: Secondary Status: Acute (3) Urinary tract infection Priority: Secondary Status: Acute Qualifiers: Urinary tract infection type: site unspecified Hematuria presence: without hematuria Qualified Code(s): N39.0 - Urinary tract infection, site not specified (4) Hypercalcemia Priority: Secondary Status: Acute (5) Urinary retention Priority: Secondary Status: Acute - Discharge Medications Prescriptions: Bethanechol Chloride [Urecholine] 10 mg GTUBE Q8H #9 tablet Cefixime [Suprax] 500 mg PO DAILY #15 mls Home Medications: Atropine 1% Opth Drops 1 - 2 drp SL Q4-6H PRN 04/02/15 [History] Baclofen [Lioresal] 20 mg GTUBE TID 04/02/15 [History] Multivit/Ca/Min/Fe/FA [Thera M Plus] 1 each GTUBE DAILY 04/02/15 [History] Polyethylene Glycol 3350 [MiraLAX] 17 gm GTUBE QPM 04/02/15 [History] lamoTRIgine [Lamictal] 300 mg GTUBE QAM 04/02/15 [History] Albuterol Neb [Proventil Neb] 10 mg AER PRN PRN 05/05/15 [History] Diazepam [Diastat Acudial] 10 mg IR DAILY 02/17/16 [History] DiphenhydraMINE [Benadryl] 25 mg PO Q6HR PRN 02/17/16 [History] Loperamide [Imodium] 2 mg PO DAILY PRN 02/17/16 [History] Lovastatin [Mevacor] 20 mg PO HS 02/17/16 [History] Pseudoephedrine [Sudafed] 60 mg PO Q6H PRN 02/17/16 [History] Medroxyprogesterone Acetate [Depo-Provera] 150 mg IM [id number] 06/23/16 [History] Acetaminophen [Tylenol] 650 mg GTUBE Q4HR PRN 10/15/16 [History] Alendronate Sodium [Fosamax] 70 mg PO QWEEK 10/15/16 [History] Docusate [Colace] 100 mg GTUBE BID 10/15/16 [History] Lactobacillus Combo No.11 [Probiotic] 1 each GTUBE DAILY 10/15/16 [History] Mag Hydrox/Aluminum Hyd/Simeth [Cvs Antacid-Antigas Liquid] 30 ml GTUBE Q4H PRN 10/15/16 [History] Magnesium Hydroxide [Milk of Magnesia] 30 ml GTUBE Q72H PRN 10/15/16 [History] Polyvinyl Alcohol [Artificial Tears] 1 drop OP DAILY 10/15/16 [History] Saliva Stimulant [Biotene Moisturizing Rinse] 1 each PO QSHIFT 10/15/16 [History ] lamoTRIgine [Lamotrigine] 200 mg GTUBE QPM 10/17/16 [History] Bethanechol Chloride [Urecholine] 10 mg GTUBE Q8H #9 tablet 10/18/16 [Rx] Cefixime [Suprax] 500 mg PO DAILY #15 mls 10/18/16 [Rx] Allergies/Adverse Reactions: Allergies No Known Allergies Allergy (Verified 05/05/15 20:33) Date of admission: 10/17/16 11:24 Primary care physician: Nadira Glynn - Patient Status Disposition: Home, Self-Care Condition: Good Functional capacity at discharge: bed bound Overall status at discharge: patient is progressing back to baseline - Discharge Instructions Follow Up With: Nadira Glynn MD [Primary Care Provider] - 1 week Additional Instructions: Discontinue Cheek catheter in 3 days - Diet and Activity Activity: resume usual activities as tolerated Diet: advance to your usual diet Hospital course: Ms. Noel is a 41 year old female who was sent from the long term after she was found to have hypothermia. Her temperature at the long term was not recorded in the emergency room record. Her temperature in emergency room was 95.8. She also had acute renal insufficiency. She was admitted to [facility] floor for ongoing care needs. Initial orders were written by the emergency room physician. I saw her on October 15 and performed history and physical. She was started empirically on Rocephin for possible urinary infection. Urine culture returned showing Proteus sensitivity to Rocephin. WBC remained normal during hospital stay. She will continue on Suprax for 3 additional days at discharge. She had urinary retention requiring Cheek catheter insertion. Her urine volume was over 700 mL prior to insertion of catheter the second time. She will be started on Urecholine and the Cheek catheter can be discontinued in 3 days and see if spontaneous voiding occurs. Her azotemia improved with BUN and creatinine 25 and 1.13 respectively on the day of discharge. I will discontinue the NSAID's. Renal indices can be monitored at the long term. Her calcium was elevated on admission at 12.7. The vitamin D and calcium supplements were discontinued and calcium normalized to 9.4 by the day of discharge. On October 18 I felt she was stable for discharge back to the long term. She had occasional episodes of hypothermia during her hospital stay. This can be monitored further at the long term. - Time Spent with Patient Total time spent providing and/or coordinating discharge services: - Constitutional Vitals: Temp Pulse Resp BP Pulse Ox 98.0 F 80 20 109/70 93 10/18/16 11:04 10/18/16 11:04 10/18/16 11:04 10/18/16 11:04 10/18/16 11:04
== END 2016-10-18 14:36 | DRG 463 ==
LOC: EMEROOPIK 05:31 → INPPIK 05:31
PROVIDERS: ADMIT Internal Medicine; ATTEND Internal Medicine

== ENCOUNTER 2016-11-10 20:00 | Observation (INO) ==
--- NOTE | 2016-11-10 20:11 | Emergency Department Note ---
Disposition Clinical Impression: Urinary tract infection Qualifiers: Urinary tract infection type: acute cystitis Hematuria presence: without hematuria Qualified Code(s): N30.00 - Acute cystitis without hematuria Disposition: Admitted As Inpatient Condition: Good General Adult HPI - General Chief complaint: ED General Medical Stated complaint: Reported SPO2 at alf, now resolved Time Seen by Provider: 11/10/16 20:08 Source: EMS, other (Report from alf) Mode of arrival: EMS Limitations: physical limitation Nursing Notes Reviewed: Yes Vital Signs Reviewed: Yes - History of Present Illness HPI Narrative: Patient has history of severe intellectual delay and lives in a alf. She had a normal day ("fine all day"') and was checked this late afternoon early evening and found to be less responsive than usual and she had a temperature of 95.7. She has been noted in the past to develop hypothermia when she gets a urinary tract infection. She has not been noted to have vomiting, cough or shortness of breath. She has not had any type of rash or skin breakdown. The patient is unable to give any history herself. The alf reports that she is nonverbal. She had a pulse of 63, blood pressure 100/ 70, respiratory rate of 12 and a saturation of 95%. She is transported by EMS who had noted temperature 97.2, respiratory rate of 18, saturation of 96% on room air. Onset (ago): hour(s) - Related Data Home Medications Medication Instructions Recorded Confirmed Atropine 1% Opth Drops 1 - 2 drp SL Q4-6H PRN 04/02/15 11/10/16 lamoTRIgine [Lamictal] 300 mg GTUBE QAM 04/02/15 11/10/16 Albuterol Neb [Proventil Neb] 10 mg AER PRN PRN 05/05/15 11/10/16 DiphenhydraMINE [Benadryl] 25 mg PO Q6HR PRN 02/17/16 11/10/16 Loperamide [Imodium] 2 mg PO DAILY PRN 02/17/16 11/10/16 Lovastatin [Mevacor] 20 mg PO HS 02/17/16 11/10/16 Pseudoephedrine [Sudafed] 60 mg PO Q6H PRN 02/17/16 11/10/16 Medroxyprogesterone Acetate 150 mg IM [id number] 06/23/16 11/10/16 [Depo-Provera] Acetaminophen [Tylenol] 650 mg GTUBE Q4HR PRN 10/15/16 11/10/16 Alendronate Sodium [Fosamax] 70 mg PO QWEEK 10/15/16 11/10/16 Docusate [Colace] 100 mg GTUBE BID 10/15/16 11/10/16 Mag Hydrox/Aluminum Hyd/Simeth 30 ml GTUBE Q4H PRN 10/15/16 11/10/16 [Cvs Antacid-Antigas Liquid] Magnesium Hydroxide [Milk of 30 ml GTUBE Q72H PRN 10/15/16 11/10/16 Magnesia] Polyvinyl Alcohol [Artificial 1 drop OP DAILY 10/15/16 11/10/16 Tears] lamoTRIgine [Lamotrigine] 200 mg GTUBE QPM 10/17/16 11/10/16 Baclofen 20 mg GTUBE TID 11/10/16 11/10/16 Diazepam [Diastat Acudial] 1 each RC PRN PRN 11/10/16 11/10/16 Ibuprofen [Motrin] 400 mg PO Q4HR PRN 11/10/16 11/10/16 Polyethylene Glycol 3350 [Gavilax] 17 gm GTUBE QAM 11/10/16 11/10/16 Saliva Stimulant [Biotene 0 ml GTUBE Q8H 11/10/16 11/10/16 Moisturizing Rinse] Allergies Allergy/AdvReac Type Severity Reaction Status Date / Time No Known Allergies Allergy Verified 05/05/15 20:33 Limitations: ROS unobtainable due to patients medical condition Past Medical History - Past Medical History Attestation: Yes The following information was validated with the patient. Source: old records reviewed, nursing notes reviewed Medical history: Reports: arthritis (Osteoporosis), GERD, seizures, other (MRDD , anemia) Surgical history: Reports: other (G-tube) Psychiatric history: Reports: no psych history STATE ASSESSED PROPERTIES DIRECTOR history: Reports: no STATE ASSESSED PROPERTIES DIRECTOR history - Social History Smoking Status: Never smoker Smokeless Tobacco Status: No Alcohol use: Reports: none Drug use: Reports: none Physical Exam - General Limitations: altered mental status, physical limitation, other (MRDD, nonverbal) General appearance: in no apparent distress - Head Head exam: atraumatic - Eye Eye exam: Present: normal appearance, PERRL. Absent: scleral icterus, conjunctival injection - ENT ENT exam: normal exam, normal oropharynx, mucous membranes moist - Neck Neck exam: Present: normal inspection, full ROM, trachea midline. Absent: meningismus, lymphadenopathy - Chest Chest inspection: Present: normal inspection, symmetric chest wall rise - Respiratory Respiratory exam: Present: normal lung sounds bilaterally. Absent: respiratory distress, wheezes, prolonged expiratory phase - Cardiovascular Cardiovascular exam: Present: regular rate, normal rhythm, normal heart sounds - Abdominal Exam Abdominal exam: Present: soft, Non-Tender, normal bowel sounds. Absent: tenderness, distention, guarding, rebound, rigidity Abdominal tenderness: Absent: suprapubic - Extremities Exam Extremities exam: Present: normal inspection, other (Arms are held with the elbows and wrist flexed. She has muscle wasting of the upper extremities.). Absent: tenderness, pedal edema, joint swelling, calf tenderness - Expanded Lower Extremity Exam Neurovascular/Tendon exam: Present: normal capillary refill Gait: not tested/not observed - Neurological Exam Neurological exam: Absent: alert, oriented X3 - Psychiatric Psychiatric exam: Absent: agitated, anxious - Skin Skin exam: Present: warm, dry, intact, normal color. Absent: rash, diaphoresis , erythema, pallor Course Course Narrative: 2199: There has been discussed with Dr. Glynn and she recommends this patient start IV Zyvox given the history of VRE. I have discussed this with Dr. Pimentel shortly thereafter and he is agreeable with admission of this patient. He advises that he remembers this patient from previous admissions. We are establishing an IV and are transcribing verbal orders for her admission. Vital Signs Temperature 97.0 F L 11/10/16 20:00 Pulse Rate 51 11/10/16 20:00 Respiratory Rate 16 11/10/16 20:00 Blood Pressure 157/101 11/10/16 20:00 O2 Sat by Pulse Oximetry 100 11/10/16 20:00 Temperature 94.7 F L 11/11/16 03:57 Pulse Rate 59 11/11/16 07:47 Respiratory Rate 18 11/11/16 07:47 Blood Pressure 105/72 11/11/16 07:47 O2 Sat by Pulse Oximetry 96 11/11/16 07:47 Oxygen Delivery Oxygen Delivery Room Air Medical Decision Making - Medical Records Medical records reviewed: Yes I reviewed the patient's medical records. - Lab Data Lab results reviewed: Yes I reviewed the patient's lab results. Result diagrams: 11/10/16 20:25 11/10/16 20:25 Lab Results 11/10/16 11/10/16 11/10/16 Range/Units 20:19 20:25 20:25 WBC 5.4 (4.3-11.1) K/mcL RBC 4.43 (3.82-4.97) M/mcL Hgb 14.5 (11.5-15.4) g/dL Hct 43.9 (35.3-44.9) % MCV 99.1 (83.0-100.0) fL MCH 32.7 (28.0-33.3) pg MCHC 33.0 (31.6-35.5) g/dL RDW 15.9 H (11.5-14.5) % Plt Count 278 (140-400) K/mcL MPV 10.8 (9.4-12.4) fL Immature Gran % 0.2 (0-4) % Seg Neutrophils % 24.4 % Lymphocytes % 61.6 % Monocytes % 8.6 % Eosinophils % 3.9 % Basophils % 1.3 % Neutrophils # 1.3 L (1.6-8.9) K/mcL Lymphocytes # 3.3 (0.6-4.6) K/mcL Monocytes # 0.5 (0.0-1.3) K/mcL Eosinophils # 0.2 (0.0-0.6) K/mcL Basophils # 0.1 (0.0-0.2) K/mcL VBG Lactic Acid (0.5-2.2) mmol/L Sodium 140 (136-145) mEq/L Potassium 4.6 H (3.5-4.5) mEq/L Chloride 105 (98-109) mEq/L Carbon Dioxide 22 (19-29) mEq/L BUN 25 H (7-20) mg/dL Creatinine 0.73 (0.57-1.11) mg/dL Est GFR ( Amer) > 60 (> 60) Est GFR (Non-Af Amer) > 60 (> 60) BUN/Creatinine Ratio 34 H (6-26) Glucose 69 L (70-99) mg/dL Calculated Osmolality 293 (280-300) Calcium 10.2 (8.6-10.8) mg/dL Urine Color Yellow (Yellow) Urine Clarity Clear (Clear) Urine pH 7.0 (5.0-8.0) pH Units Ur Specific [place] 1.015 (1.010-1.025) Urine Protein Trace (Neg-Trace) mg/dL Urine Glucose (UA) Normal (Normal) mg/dL Urine Ketones Negative (Negative) mg/dL Urine Blood Large H (Negative) Urine Nitrite Negative (Negative) Urine Bilirubin Negative (Negative) Urine Urobilinogen Normal (Normal) mg/dL Ur Leukocyte Esterase Large H (Negative) Urine Microscopic RBC 30-50 H (0-3) per hpf Urine Microscopic WBC 50-100 H (0-3) per hpf Ur Squamous Epith Cells Many H (None-Few) per lpf Ur Transition Epith Cell Few (None-Few) per hpf Ur Renal Epithelial Cell Few (None-Few) per hpf Urine Bacteria Moderate H (None-Few) per hpf Ur Culture Indicated? YES A (NO) 11/10/16 Range/Units 20:25 WBC (4.3-11.1) K/mcL RBC (3.82-4.97) M/mcL Hgb (11.5-15.4) g/dL Hct (35.3-44.9) % MCV (83.0-100.0) fL MCH (28.0-33.3) pg MCHC (31.6-35.5) g/dL RDW (11.5-14.5) % Plt Count (140-400) K/mcL MPV (9.4-12.4) fL Immature Gran % (0-4) % Seg Neutrophils % % Lymphocytes % % Monocytes % % Eosinophils % % Basophils % % Neutrophils # (1.6-8.9) K/mcL Lymphocytes # (0.6-4.6) K/mcL Monocytes # (0.0-1.3) K/mcL Eosinophils # (0.0-0.6) K/mcL Basophils # (0.0-0.2) K/mcL VBG Lactic Acid 1.7 (0.5-2.2) mmol/L Sodium (136-145) mEq/L Potassium (3.5-4.5) mEq/L Chloride (98-109) mEq/L Carbon Dioxide (19-29) mEq/L BUN (7-20) mg/dL Creatinine (0.57-1.11) mg/dL Est GFR ( Amer) (> 60) Est GFR (Non-Af Amer) (> 60) BUN/Creatinine Ratio (6-26) Glucose (70-99) mg/dL Calculated Osmolality (280-300) Calcium (8.6-10.8) mg/dL Urine Color (Yellow) Urine Clarity (Clear) Urine pH (5.0-8.0) pH Units Ur Specific [place] (1.010-1.025) Urine Protein (Neg-Trace) mg/dL Urine Glucose (UA) (Normal) mg/dL Urine Ketones (Negative) mg/dL Urine Blood (Negative) Urine Nitrite (Negative) Urine Bilirubin (Negative) Urine Urobilinogen (Normal) mg/dL Ur Leukocyte Esterase (Negative) Urine Microscopic RBC (0-3) per hpf Urine Microscopic WBC (0-3) per hpf Ur Squamous Epith Cells (None-Few) per lpf Ur Transition Epith Cell (None-Few) per hpf Ur Renal Epithelial Cell (None-Few) per hpf Urine Bacteria (None-Few) per hpf Ur Culture Indicated? (NO)
[2016-11-10 20:36] LABS: Bilirubin,Urine Negative (Negative); Blood,Urine Large (Negative); Clarity,Urine Clear (Clear); Color,Urine Yellow (Yellow); Glucose,Urine (UA) Normal (Normal); Ketones,Urine Negative (Negative); Leukocyte Esterase,Urine Large (Negative); Nitrite,Urine Negative (Negative); Protein,Urine Trace mg/dL (Neg-Trace); Specific Gravity,Urine 1.015 (1.010-1.025); Urobilinogen,Urine Normal (Normal)
[2016-11-10 20:39] LABS: Basophils # 0.1 K/mcL (0.0-0.2); Basophils % 1.3 %; Eosinophils # 0.2 K/mcL (0.0-0.6); Eosinophils % 3.9 %; Hematocrit 43.9 % (35.3-44.9); Hemoglobin 14.5 g/dL (11.5-15.4); Immature Granulocytes % 0.2 % (0-4); Lymphocytes # 3.3 K/mcL (0.6-4.6); Lymphocytes % 61.6 %; Mean Corpuscular Hemoglobin 32.7 pg (28.0-33.3); Mean Corpuscular Volume 99.1 fL (83.0-100.0); Mean Platelet Volume 10.8 fL (9.4-12.4); Monocytes # 0.5 K/mcL (0.0-1.3); Monocytes % 8.6 %; Neutrophils # 1.3 K/mcL (1.6-8.9); Platelet Count 278 K/mcL (140-400); Red Blood Count 4.43 M/mcL (3.82-4.97); Red Cell Distribution Width 15.9 % (11.5-14.5); Segmented Neutrophils % 24.4 %
[2016-11-10 20:54] LABS: BUN/Creatinine Ratio 34 (6-26); Blood Urea Nitrogen 25 mg/dL (7-20); Calcium 10.2 mg/dL (8.6-10.8); Carbon Dioxide 22 mEq/L (19-29); Chloride 105 mEq/L (98-109); Glucose 69 mg/dL (70-99); Osmolality,Calculated 293 (280-300); Potassium 4.6 mEq/L (3.5-4.5); Sodium 140 mEq/L (136-145); eGFR For African Americans > 60 (> 60); eGFR For Non-African Americans > 60 (> 60)
[2016-11-10 21:04] LABS: Squamous Epithelial Cell,Urine Many per lpf (None-Few); WBC,Urine 50-100 per hpf (0-3)
[2016-11-10 21:05] LABS: Bacteria,Urine Moderate per hpf (None-Few); RBC,Urine 30-50 per hpf (0-3); Renal Epithelial Cells,Urine Few per hpf (None-Few); Transitional Epi Cells,Urine Few per hpf (None-Few)
[2016-11-10] MEDS ORDERED: CefTRIAXone 1,000 MG VIAL IM ONE (21:15)
[2016-11-10] MEDS ORDERED: 0.9 % Sodium Chloride 1,000 ML IVC SCH (22:15)
[2016-11-10] MEDS ORDERED: Acetaminophen 325 MG TABLET PO PRN ×2 (22:42→22:59)
[2016-11-10] MEDS ORDERED: Albuterol 2.5 MG/3 ML NEBULIZER AER PRN (22:42)
[2016-11-10] MEDS ORDERED: Ondansetron 4 MG/2 ML VIAL IVP PRN (22:42)
[2016-11-10] MEDS ORDERED: Atropine Sulfate 1% 40 DROP/2 ML BOTTLE SL PRN (22:42)
[2016-11-10] MEDS ORDERED: Mag Hydrox/Al Hydrox/Simeth 30 ML UDC GTUBE PRN (22:42)
[2016-11-10] MEDS ORDERED: NON-FORMULARY MEDICATION 1 EACH EACH PO SCH (22:42)
[2016-11-10] MEDS ORDERED: NON-FORMULARY MEDICATION 1 EACH EACH (Magnesium Hydroxide 30 ML) GTUBE PRN (22:42)
[2016-11-10] MEDS ORDERED: Naloxone 0.4 MG/ML INJ IVP PRN (22:42)
[2016-11-10] MEDS ORDERED: Ibuprofen 400 MG TABLET PO PRN (22:42)
[2016-11-10] MEDS: 0.9 % Sodium Chloride 1,000 ML IVC SCH (22:58)
[2016-11-11] MEDS ORDERED: *HR* Dextrose 50 % in Water (Syg) 50 ML SYRINGE IVP PRN (05:50)
[2016-11-11] MEDS ORDERED: D5% in Water 1,000 ML IVC PRN (05:50)
[2016-11-11] MEDS: 0.9 % Sodium Chloride 1,000 ML IVC SCH (12:52)
[2016-11-11] MEDS: Artificial Tears SOLN 15 ML BOTTLE OP SCH (13:02)
[2016-11-11] MEDS: Docusate Oral Soln 100 MG/10 ML UDC GTUBE SCH ×2 (13:04→20:45)
[2016-11-11] MEDS: Baclofen 10 MG TABLET GTUBE SCH ×3 (13:05→20:45)
[2016-11-11] MEDS: lamoTRIgine 100 MG TABLET GTUBE SCH ×2 (13:05→20:44)
--- NOTE | 2016-11-11 15:37 | Internal Med History&Physical ---
Date of Encounter: 11/11/16 Time of Encounter: 15:20 Assessment and Plan (1) Urinary tract infection Current visit: Yes Status: Acute She was given Rocephin and Zyvox in emergency room. Urine culture has been ordered. Qualifiers: Urinary tract infection type: acute cystitis Hematuria presence: without hematuria Qualified Code(s): N30.00 - Acute cystitis without hematuria Internal Medicine - H&P: HPI Chief complaint: Hypothermic Admitted From: Home Plans for Post Hospital Care: Home History of present illness: Ms. Noel is a 41 year old female who was sent from the [facility] because of reported temperature of 95.7. She was evaluated in emergency room and felt to have possible UTI. She was admitted to [facility] floor for ongoing care needs. She was hospitalized at [facility] approximately 3 weeks ago with hypothermia felt be secondary to UTI. She has severe MRDD and is nonverbal. Past Med Surg Social Fam HX - Past Medical History Medical history: arthritis (Osteoporosis), GERD, seizures, other (MRDD, anemia) Psychiatric history: no psych history - Past Surgical History Surgical History: other (G-tube) - Social History Smoking Status: Never smoker Smokeless Tobacco Status: No Alcohol use: none Drug use: none Internal Medicine - H&P: Meds Atropine 1% Opth Drops 1 - 2 drp SL Q4-6H PRN 04/02/15 [History] lamoTRIgine [Lamictal] 300 mg GTUBE QAM 04/02/15 [History] Albuterol Neb [Proventil Neb] 10 mg AER PRN PRN 05/05/15 [History] DiphenhydraMINE [Benadryl] 25 mg PO Q6HR PRN 02/17/16 [History] Loperamide [Imodium] 2 mg PO DAILY PRN 02/17/16 [History] Lovastatin [Mevacor] 20 mg PO HS 02/17/16 [History] Pseudoephedrine [Sudafed] 60 mg PO Q6H PRN 02/17/16 [History] Medroxyprogesterone Acetate [Depo-Provera] 150 mg IM [id number] 06/23/16 [History] Acetaminophen [Tylenol] 650 mg GTUBE Q4HR PRN 10/15/16 [History] Alendronate Sodium [Fosamax] 70 mg PO QWEEK 10/15/16 [History] Docusate [Colace] 100 mg GTUBE BID 10/15/16 [History] Mag Hydrox/Aluminum Hyd/Simeth [Cvs Antacid-Antigas Liquid] 30 ml GTUBE Q4H PRN 10/15/16 [History] Magnesium Hydroxide [Milk of Magnesia] 30 ml GTUBE Q72H PRN 10/15/16 [History] Polyvinyl Alcohol [Artificial Tears] 1 drop OP DAILY 10/15/16 [History] lamoTRIgine [Lamotrigine] 200 mg GTUBE QPM 10/17/16 [History] Baclofen 20 mg GTUBE TID 11/10/16 [History] Diazepam [Diastat Acudial] 1 each RC PRN PRN 11/10/16 [History] Ibuprofen [Motrin] 400 mg PO Q4HR PRN 11/10/16 [History] Polyethylene Glycol 3350 [Gavilax] 17 gm GTUBE QAM 11/10/16 [History] Saliva Stimulant [Biotene Moisturizing Rinse] 0 ml GTUBE Q8H 11/10/16 [History] Allergies No Known Allergies Allergy (Verified 05/05/15 20:33) All Systems PM: A 10-system review of systems was performed and is negative for pertinent findings except as documented above in the HPI. Review of systems: Review of systems is unobtainable from the patient. Her ROS from the September 2016 [facility] hospitalization were reviewed and revised as below. Gen.: Her weight has increased from 44.18 kg at discharge April 2015 to 54.431 kg on admission now. Cardiovascular: There is no known hypertension heart failure angina DVT or pulmonary embolus Respiratory: Smoking history is not known. She does not have documented chronic lung disease in available records. GI: She has GERD by history. There is no known disorder of her liver gallbladder or exocrine pancreas. She had fecal impaction requiring disimpaction during her April 2015 hospitalization. : There is no mention of hematuria dysuria or kidney stones. She has had frequent UTIs reported. She had urinary retention during her last hospitalization requiring Cheek catheter insertion briefly. Endocrine: There is no known diabetes thyroid disease or hyperlipidemia Hematology/oncology: She has a history of anemia that has resolved. She does not have other known blood disorders or internal malignancies Neurologic: She has a diagnoses of seizure disorder, encephalopathy, cortical blindness, and optic atrophy. Psychiatric: She has no known anxiety depression or other mental health issues Musculoskeletal: She has had fractures of the right radius, right tibia, right humeral head, and left humerus neck. 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 - Constitutional Vitals: Temp Pulse Resp BP Pulse Ox 96.9 F L 62 18 104/70 94 11/11/16 15:14 11/11/16 15:14 11/11/16 15:14 11/11/16 15:14 11/11/16 15:14 Exam: Gen.: She is a short stature female lying in bed in no acute distress HEENT: Head is atraumatic and normocephalic. Eyes: Her gaze is conjugate. There is no scleral icterus. Mouth: Mucosa is moist. She has some dental deformities. Neck: Supple and nontender. There is no thyromegaly or adenopathy noted. Heart: Regular without murmurs gallops or ectopics Lungs: No wheezes or crackles are heard. Abdomen: G-tube is in place in the epigastric area. There is a well-healed longitudinal midline scar. No masses or guarding are noted. Extremities: There is no cyanosis edema or clubbing noted. Dorsalis pedis and posterior tibial pulses are trace palpable bilaterally. She has short limbs. She holds her arms in a decorticate position. She has deformity of the feet. Neurologic: Mental status: She does not respond meaningfully to voice or light touch. Cranial nerves: Her facial movements are minimal. She has facial symmetry. Her gaze is conjugate. Motor: She makes no spontaneous movements of her arms or legs. Her arms are in a contracted decorticate position. No further neurologic testing is attempted. Skin: Warm and dry Internal Med - H&P Results - Labs CBC & Chem 7: 11/10/16 20:25 11/10/16 20:25
[2016-11-12 06:07] LABS: Basophils # 0.1 K/mcL (0.0-0.2); Basophils % 0.6 %; Eosinophils # 0.2 K/mcL (0.0-0.6); Eosinophils % 2.9 %; Hematocrit 39.7 % (35.3-44.9); Hemoglobin 13.1 g/dL (11.5-15.4); Immature Granulocytes % 0.3 % (0-4); Lymphocytes # 2.4 K/mcL (0.6-4.6); Lymphocytes % 30.6 %; Mean Corpuscular Hemoglobin 32.4 pg (28.0-33.3); Mean Corpuscular Volume 98.3 fL (83.0-100.0); Mean Platelet Volume 11.1 fL (9.4-12.4); Monocytes # 0.5 K/mcL (0.0-1.3); Monocytes % 5.9 %; Neutrophils # 4.7 K/mcL (1.6-8.9); Platelet Count 268 K/mcL (140-400); Red Blood Count 4.04 M/mcL (3.82-4.97); Red Cell Distribution Width 15.7 % (11.5-14.5); Segmented Neutrophils % 59.7 %
[2016-11-12] MEDS: Artificial Tears SOLN 15 ML BOTTLE OP SCH (09:50)
[2016-11-12] MEDS: Docusate Oral Soln 100 MG/10 ML UDC GTUBE SCH ×2 (09:51→20:44)
[2016-11-12] MEDS: lamoTRIgine 100 MG TABLET GTUBE SCH ×2 (09:51→18:14)
[2016-11-12] MEDS: Baclofen 10 MG TABLET GTUBE SCH ×3 (09:51→20:45)
--- NOTE | 2016-11-12 14:54 | Internal Med Progress Note ---
Date of Encounter: 11/12/16 Time of Encounter: 14:45 - Assessment and plan (1) Urinary tract infection Current Visit: Yes Status: Acute Assessment and plan: November 12. Continue Zyvox. Will add lactobacillus. [facility] Qualifiers: Urinary tract infection type: acute cystitis Hematuria presence: without hematuria Qualified Code(s): N30.00 - Acute cystitis without hematuria - Subjective Interval history: November 02. She is nonverbal - Constitutional Vitals: Temp Pulse Resp BP Pulse Ox 97.8 F 77 16 114/73 96 11/12/16 11:52 11/12/16 11:52 11/12/16 11:52 11/12/16 11:52 11/12/16 11:52 Exam: She is resting comfortably in bed and appears in no acute distress. Heart is regular without murmurs gallops or ectopics. Lungs are clear anteriorly. Externally show no edema. Urine culture final report pending. Internal Medicine: Result - Labs CBC & Chem 7: 11/12/16 05:10 11/10/16 20:25 Labs: Short CBC 11/12/16 Range/Units 05:10 WBC 7.9 (4.3-11.1) K/mcL Hgb 13.1 (11.5-15.4) g/dL Hct 39.7 (35.3-44.9) % Plt Count 268 (140-400) K/mcL Neutrophils # 4.7 (1.6-8.9) K/mcL Consult Discharge Plan - Plan Referrals: Nadira Glynn MD [Primary Care Provider] - 1 week
[2016-11-12] MEDS: Lactobacillus 1 EACH CAP.SPRINK PO SCH ×2 (15:14→20:45)
[2016-11-13 08:57] VITALS: BP 121/66
--- NOTE | 2016-11-13 09:25 | Discharge Summary ---
Date of Encounter: 11/13/16 Time of Encounter: 09:15 - Discharge Diagnosis (1) Urinary tract infection Priority: Primary Status: Acute Qualifiers: Urinary tract infection type: acute cystitis Hematuria presence: without hematuria Qualified Code(s): N30.00 - Acute cystitis without hematuria - Discharge Medications Prescriptions: Cefixime [Suprax] 200 mg PO Q12H #30 mls Lactobacillus [Culturelle] 1 each PO BID #6 [email or web address] Home Medications: Atropine 1% Opth Drops 1 - 2 drp SL Q4-6H PRN 04/02/15 [History] lamoTRIgine [Lamictal] 300 mg GTUBE QAM 04/02/15 [History] Albuterol Neb [Proventil Neb] 10 mg AER PRN PRN 05/05/15 [History] DiphenhydraMINE [Benadryl] 25 mg PO Q6HR PRN 02/17/16 [History] Loperamide [Imodium] 2 mg PO DAILY PRN 02/17/16 [History] Lovastatin [Mevacor] 20 mg PO HS 02/17/16 [History] Pseudoephedrine [Sudafed] 60 mg PO Q6H PRN 02/17/16 [History] Medroxyprogesterone Acetate [Depo-Provera] 150 mg IM [id number] 06/23/16 [History] Acetaminophen [Tylenol] 650 mg GTUBE Q4HR PRN 10/15/16 [History] Alendronate Sodium [Fosamax] 70 mg PO QWEEK 10/15/16 [History] Docusate [Colace] 100 mg GTUBE BID 10/15/16 [History] Mag Hydrox/Aluminum Hyd/Simeth [Cvs Antacid-Antigas Liquid] 30 ml GTUBE Q4H PRN 10/15/16 [History] Magnesium Hydroxide [Milk of Magnesia] 30 ml GTUBE Q72H PRN 10/15/16 [History] Polyvinyl Alcohol [Artificial Tears] 1 drop OP DAILY 10/15/16 [History] lamoTRIgine [Lamotrigine] 200 mg GTUBE QPM 10/17/16 [History] Baclofen 20 mg GTUBE TID 11/10/16 [History] Diazepam [Diastat Acudial] 1 each RC PRN PRN 11/10/16 [History] Ibuprofen [Motrin] 400 mg PO Q4HR PRN 11/10/16 [History] Polyethylene Glycol 3350 [Gavilax] 17 gm GTUBE QAM 11/10/16 [History] Saliva Stimulant [Biotene Moisturizing Rinse] 0 ml GTUBE Q8H 11/10/16 [History] Cefixime [Suprax] 200 mg PO Q12H #30 mls 11/13/16 [Rx] Lactobacillus [Culturelle] 1 each PO BID #6 cap.[email or web address] 11/13/16 [Rx] Allergies/Adverse Reactions: Allergies No Known Allergies Allergy (Verified 05/05/15 20:33) Date of admission: 11/10/16 22:31 Primary care physician: Nadira Glynn Consults: 11/11/16 02:00 Consult to Nutrition [CONS] Routine Comment: eval and reccomend TF - we use [facility] @ [facility] Consulting Provider: NUTRITION Reason for Dietary Consult: TF Start and Manage - Patient Status Disposition: Home, Self-Care Condition: Good Functional capacity at discharge: bed bound Overall status at discharge: patient is progressing back to baseline - Discharge Instructions Follow Up With: Nadira Glynn MD [Primary Care Provider] - 1 week - Diet and Activity Activity: resume usual activities as tolerated Diet: advance to your usual diet Hospital course: Ms. Noel is a 41 year old female who was sent from the [facility] because of reported temperature of 95.7. She was evaluated in emergency room and felt to have possible UTI. She was admitted to [facility] floor for ongoing care needs. Initial orders were written by the emergency room physician. I saw her on November 11 and performed the history and physical. She was started empirically on Zyvox through emergency room. I gave her a single dose of Rocephin. Urine culture returned showing Morganelli morganii. Temperature returned to normal range after initiation of treatment. She will continue with Suprax for 3 additional days of discharge. She will follow with Dr. Glynn at the [facility]. - Time Spent with Patient Total time spent providing and/or coordinating discharge services: - Constitutional Vitals: Temp Pulse Resp BP Pulse Ox 97.5 F L 65 16 121/66 95 11/13/16 07:35 11/13/16 07:35 11/13/16 07:35 11/13/16 07:35 11/13/16 07:35
[2016-11-13] MEDS: Lactobacillus 1 EACH CAP.SPRINK PO SCH (09:40)
[2016-11-13] MEDS: Baclofen 10 MG TABLET GTUBE SCH (09:40)
[2016-11-13] MEDS: Docusate Oral Soln 100 MG/10 ML UDC GTUBE SCH (09:40)
[2016-11-13] MEDS: lamoTRIgine 100 MG TABLET GTUBE SCH (09:42)
[2016-11-13] MEDS: Artificial Tears SOLN 15 ML BOTTLE OP SCH (09:50)
== END 2016-11-13 11:15 | disposition home or self-care (01) ==
LOC: EMEROOPIK 20:00 → INPPIK 20:00
PROVIDERS: ADMIT Internal Medicine; ATTEND Internal Medicine

== ENCOUNTER 2017-01-13 04:57 | Inpatient (IN) ==
--- NOTE | 2017-01-13 05:00 | Emergency Department Note ---
Disposition Clinical Impression: Hypothermia not due to cold exposure Urinary tract infection Qualifiers: Urinary tract infection type: acute cystitis Hematuria presence: without hematuria Qualified Code(s): N30.00 - Acute cystitis without hematuria Disposition: Admitted As Inpatient Condition: Fair General Adult HPI - General Chief complaint: ED General Medical Stated complaint: hypothermia Time Seen by Provider: 01/13/17 04:59 Source: EMS, other (nursing home) Mode of arrival: EMS Limitations: altered mental status, physical limitation Nursing Notes Reviewed: Yes Vital Signs Reviewed: Yes - History of Present Illness HPI Narrative: The patient was noted to have a temperature of 92-94 tympanic on several temperature checks his morning. She has had this in the past with urinary tract infections. She has not had alteration from her normal mental status. She has not been having cough, shortness of breath, vomiting or diarrhea. She has had a encephalopathy with thermoregulatory instability. She is not communicative and is contracted in all 4 extremities. She is unable to give any independent history. Patient is transported in from a skilled nursing. They have placed extra blankets on her for external warming. Onset (ago): Just [employer]CIAL RET[employer]ER Pain Scale: 0 Consistency: constant Improves with: nothing Worsens with: nothing Associated symptoms: Denies: confusion, cough, diaphoresis, fever/chills, malaise, nausea/vomiting, rash, seizure, shortness of breath, weakness Treatments Prior to Arrival: other (External warming) - Related Data Home Medications Medication Instructions Recorded Confirmed Atropine 1% Opth Drops 1 - 2 drp SL Q4-6H PRN 04/02/15 01/13/17 lamoTRIgine [Lamictal] 300 mg GTUBE QAM 04/02/15 01/13/17 Albuterol Neb [Proventil Neb] 10 mg AER PRN PRN 05/05/15 01/13/17 DiphenhydraMINE [Benadryl] 25 mg PO Q6HR PRN 02/17/16 01/13/17 Loperamide [Imodium] 2 mg PO DAILY PRN 02/17/16 01/13/17 Lovastatin [Mevacor] 20 mg PO HS 02/17/16 01/13/17 Pseudoephedrine [Sudafed] 60 mg PO Q6H PRN 02/17/16 01/13/17 Medroxyprogesterone Acetate 150 mg IM [id number] 06/23/16 01/13/17 [Depo-Provera] Acetaminophen [Tylenol] 650 mg GTUBE Q4HR PRN 10/15/16 01/13/17 Alendronate Sodium [Fosamax] 70 mg PO QWEEK 10/15/16 01/13/17 Docusate [Colace] 100 mg GTUBE BID 10/15/16 01/13/17 Mag Hydrox/Aluminum Hyd/Simeth 30 ml GTUBE Q4H PRN 10/15/16 01/13/17 [Cvs Antacid-Antigas Liquid] Magnesium Hydroxide [Milk of 30 ml GTUBE Q72H PRN 10/15/16 01/13/17 Magnesia] Polyvinyl Alcohol [Artificial 1 drop OP DAILY 10/15/16 01/13/17 Tears] lamoTRIgine [Lamotrigine] 200 mg GTUBE QPM 10/17/16 01/13/17 Baclofen 20 mg GTUBE TID 11/10/16 01/13/17 Diazepam [Diastat Acudial] 1 each RC PRN PRN 11/10/16 01/13/17 Ibuprofen [Motrin] 400 mg PO Q4HR PRN 11/10/16 01/13/17 Polyethylene Glycol 3350 [Gavilax] 17 gm GTUBE QAM 11/10/16 01/13/17 Saliva Stimulant [Biotene 0 ml GTUBE Q8H 11/10/16 01/13/17 Moisturizing Rinse] Previous Rx's Medication Instructions Recorded Cefixime [Suprax] 200 mg PO Q12H #30 mls 11/13/16 Lactobacillus [Culturelle] 1 each PO BID #6 cap.sprink 11/13/16 Allergies Allergy/AdvReac Type Severity Reaction Status Date / Time No Known Allergies Allergy Verified 05/05/15 20:33 All systems ED: reviewed and negative except as stated. Past Medical History - Past Medical History Attestation: Yes The following information was validated with the patient. 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, kyphosis and scoliosis, cortical blindness, cholelithiasis ) Surgical history: Reports: other (G-tube, Rosita fundoplication) Psychiatric history: Reports: no psych history SURGICAL RN history: Reports: no SURGICAL RN history - Social History Smoking Status: Never smoker Smokeless Tobacco Status: No Alcohol use: Reports: none Drug use: Reports: none Physical Exam - General Limitations: altered mental status, physical limitation General appearance: in no apparent distress - Head Head exam: atraumatic, normocephalic, normal inspection - Eye Eye exam: Absent: scleral icterus, conjunctival injection - ENT ENT exam: normal exam, normal oropharynx, mucous membranes moist - Neck Neck exam: Present: normal inspection, trachea midline. Absent: tenderness, meningismus, lymphadenopathy - Chest Chest inspection: Present: normal inspection, symmetric chest wall rise - Respiratory Respiratory exam: Present: normal lung sounds bilaterally. Absent: respiratory distress, wheezes, prolonged expiratory phase - Cardiovascular Cardiovascular exam: Present: regular rate, normal rhythm, normal heart sounds. Absent: tachycardia - Abdominal Exam Abdominal exam: Present: soft, Non-Tender, normal bowel sounds, other (G-tube). Absent: tenderness, distention, guarding, rebound, rigidity - Extremities Exam Extremities exam: Present: normal inspection, normal capillary refill, other ( Patient has contractures in the upper and lower extremities.). Absent: pedal edema, joint swelling - Back Exam Back exam: Present: normal inspection. Absent: tenderness - Neurological Exam Neurological exam: Present: motor sensory deficit, other (Patient is at her baseline mental status.). Absent: alert, oriented X3, normal gait - Psychiatric Psychiatric exam: Present: flat affect - Skin Skin exam: Present: warm, dry, intact, normal color. Absent: rash, cyanosis, diaphoresis, pallor Course Course Narrative: Caridad Hugger for external warming has been placed on the patient's arrival. Initial blood pressure reading appears to be spurious as all subsequent have been normal. 0605: Patient's urine does have leukocyte esterase positive and 5-15 white cells per high-power field. The patient has been started on Rocephin intravenously. A culture has been sent on the urine. Patient's temperature is improving with external warming. I have contacted Dr. Pimentel for orders for this patient's continued inpatient treatment. 0625: The patient's temperature has increased to 97.4 and the external warming has been turned down to 38 degrees centigrade. The patient continues to rest comfortably awaiting transfer to inpatient bed. Vital Signs Temperature 94.1 F L 01/13/17 05:01 Pulse Rate 53 01/13/17 05:01 Respiratory Rate 16 01/13/17 05:01 Blood Pressure 74/44 01/13/17 05:01 O2 Sat by Pulse Oximetry 95 01/13/17 05:01 Temperature 97.4 F L 01/13/17 06:22 Pulse Rate 83 01/13/17 06:22 Respiratory Rate 18 01/13/17 06:22 Blood Pressure 111/73 01/13/17 06:22 O2 Sat by Pulse Oximetry 93 01/13/17 06:22 Oxygen Delivery Oxygen Delivery Nasal Cannula Medical Decision Making - Medical Records Medical records reviewed: Yes I reviewed the patient's medical records. - Lab Data Lab results reviewed: Yes I reviewed the patient's lab results. Result diagrams: 01/13/17 05:27 01/13/17 05:27 Lab Results 01/13/17 01/13/17 01/13/17 Range/Units 05:10 05:27 05:27 WBC 6.0 (4.3-11.1) K/mcL RBC 4.71 (3.82-4.97) M/mcL Hgb 15.2 (11.5-15.4) g/dL Hct 45.0 H (35.3-44.9) % MCV 95.5 (83.0-100.0) fL MCH 32.3 (28.0-33.3) pg MCHC 33.8 (31.6-35.5) g/dL RDW 15.0 H (11.5-14.5) % Plt Count 258 (140-400) K/mcL MPV 10.7 (9.4-12.4) fL Immature Gran % 0.2 (0-4) % Seg Neutrophils % 35.8 % Lymphocytes % 48.1 % Monocytes % 6.1 % Eosinophils % 9.0 % Basophils % 0.8 % Neutrophils # 2.2 (1.6-8.9) K/mcL Lymphocytes # 2.9 (0.6-4.6) K/mcL Monocytes # 0.4 (0.0-1.3) K/mcL Eosinophils # 0.5 (0.0-0.6) K/mcL Basophils # 0.1 (0.0-0.2) K/mcL VBG Lactic Acid (0.5-2.2) mmol/L Sodium 142 (136-145) mEq/L Potassium 5.4 H (3.5-4.5) mEq/L Chloride 109 (98-109) mEq/L Carbon Dioxide 23 (19-29) mEq/L BUN 19 (7-20) mg/dL Creatinine 0.74 (0.57-1.11) mg/dL Est GFR ( Amer) > 60 (> 60) Est GFR (Non-Af Amer) > 60 (> 60) BUN/Creatinine Ratio 26 (6-26) Glucose 73 (70-99) mg/dL Calculated Osmolality 295 (280-300) Calcium 9.9 (8.6-10.8) mg/dL Urine Color Yellow (Yellow) Urine Clarity Clear (Clear) Urine pH 7.0 (5.0-8.0) pH Units Ur Specific [place] 1.015 (1.010-1.025) Urine Protein Negative (Neg-Trace) mg/dL Urine Glucose (UA) Normal (Normal) mg/dL Urine Ketones Negative (Negative) mg/dL Urine Blood Trace-intact H (Negative) Urine Nitrite Negative (Negative) Urine Bilirubin Negative (Negative) Urine Urobilinogen Normal (Normal) mg/dL Ur Leukocyte Esterase Moderate H (Negative) Urine Microscopic WBC 5-15 H (0-3) per hpf Amorphous Sediment Few (Few) Urine Bacteria Few (None-Few) per hpf Ur Culture Indicated? YES A (NO) 01/13/17 Range/Units 05:27 WBC (4.3-11.1) K/mcL RBC (3.82-4.97) M/mcL Hgb (11.5-15.4) g/dL Hct (35.3-44.9) % MCV (83.0-100.0) fL MCH (28.0-33.3) pg MCHC (31.6-35.5) g/dL RDW (11.5-14.5) % Plt Count (140-400) K/mcL MPV (9.4-12.4) fL Immature Gran % (0-4) % Seg Neutrophils % % Lymphocytes % % Monocytes % % Eosinophils % % Basophils % % Neutrophils # (1.6-8.9) K/mcL Lymphocytes # (0.6-4.6) K/mcL Monocytes # (0.0-1.3) K/mcL Eosinophils # (0.0-0.6) K/mcL Basophils # (0.0-0.2) K/mcL VBG Lactic Acid 1.3 (0.5-2.2) mmol/L Sodium (136-145) mEq/L Potassium (3.5-4.5) mEq/L Chloride (98-109) mEq/L Carbon Dioxide (19-29) mEq/L BUN (7-20) mg/dL Creatinine (0.57-1.11) mg/dL Est GFR ( Amer) (> 60) Est GFR (Non-Af Amer) (> 60) BUN/Creatinine Ratio (6-26) Glucose (70-99) mg/dL Calculated Osmolality (280-300) Calcium (8.6-10.8) mg/dL Urine Color (Yellow) Urine Clarity (Clear) Urine pH (5.0-8.0) pH Units Ur Specific [place] (1.010-1.025) Urine Protein (Neg-Trace) mg/dL Urine Glucose (UA) (Normal) mg/dL Urine Ketones (Negative) mg/dL Urine Blood (Negative) Urine Nitrite (Negative) Urine Bilirubin (Negative) Urine Urobilinogen (Normal) mg/dL Ur Leukocyte Esterase (Negative) Urine Microscopic WBC (0-3) per hpf Amorphous Sediment (Few) Urine Bacteria (None-Few) per hpf Ur Culture Indicated? (NO) - Radiology Data Radiology results reviewed: Yes I reviewed the patient's radiology results. Single view chest x-ray is performed. The initial film is rotated it has been repeated. This does not demonstrate evidence for infiltrate, effusion, pneumothorax, foreign body or heart failure. The cardiac silhouette is normal. I do not see abnormality to the osseous structures of the chest. This is on my interpretation. Impressions Chest X-Ray 01/13/17 05:04 IMPRESSION: Mild fullness/ ill definition of pulmonary vascularity with mild prominence of interstitial markings. Finding in part may be related to expiratory nature of the film. Component of mild vascular congestion not excluded. Short-term follow-up examination with better inspiratory effort would be helpful for re-evaluation. D/ / Dexter Garvey MD / Dexter Garvey MD Interpreting Provider: Dexter Garvey MD
[2017-01-13 05:37] LABS: Basophils # 0.1 K/mcL (0.0-0.2); Basophils % 0.8 %; Eosinophils # 0.5 K/mcL (0.0-0.6); Hemoglobin 15.2 g/dL (11.5-15.4); Immature Granulocytes % 0.2 % (0-4); Lymphocytes # 2.9 K/mcL (0.6-4.6); Lymphocytes % 48.1 %; Mean Corpuscular HGB Conc 33.8 g/dL (31.6-35.5); Mean Corpuscular Hemoglobin 32.3 pg (28.0-33.3); Mean Corpuscular Volume 95.5 fL (83.0-100.0); Mean Platelet Volume 10.7 fL (9.4-12.4); Monocytes # 0.4 K/mcL (0.0-1.3); Monocytes % 6.1 %; Neutrophils # 2.2 K/mcL (1.6-8.9); Platelet Count 258 K/mcL (140-400); Red Blood Count 4.71 M/mcL (3.82-4.97); Segmented Neutrophils % 35.8 %
[2017-01-13 05:49] LABS: Bilirubin,Urine Negative (Negative); Blood,Urine Trace-intact (Negative); Clarity,Urine Clear (Clear); Color,Urine Yellow (Yellow); Glucose,Urine (UA) Normal (Normal); Ketones,Urine Negative (Negative); Leukocyte Esterase,Urine Moderate (Negative); Nitrite,Urine Negative (Negative); Protein,Urine Negative (Neg-Trace); Specific Gravity,Urine 1.015 (1.010-1.025); Urobilinogen,Urine Normal (Normal)
[2017-01-13 05:52] LABS: BUN/Creatinine Ratio 26 (6-26); Blood Urea Nitrogen 19 mg/dL (7-20); Calcium 9.9 mg/dL (8.6-10.8); Carbon Dioxide 23 mEq/L (19-29); Chloride 109 mEq/L (98-109); Glucose 73 mg/dL (70-99); Osmolality,Calculated 295 (280-300); Potassium 5.4 mEq/L (3.5-4.5); Sodium 142 mEq/L (136-145); eGFR For African Americans > 60 (> 60); eGFR For Non-African Americans > 60 (> 60)
[2017-01-13 06:04] LABS: Amorphous Sediment,Urine Few (Few); Bacteria,Urine Few per hpf (None-Few)
[2017-01-13] MEDS ORDERED: 0.9 % Sodium Chloride 1,000 ML IVC SCH (06:15)
[2017-01-13] MEDS ORDERED: Ondansetron 4 MG/2 ML VIAL IVP PRN (07:13)
[2017-01-13] MEDS ORDERED: Naloxone 0.4 MG/ML INJ IVP PRN (07:13)
[2017-01-13] MEDS: 0.9 % Sodium Chloride 1,000 ML IVC SCH ×2 (07:15→18:01)
[2017-01-13] MEDS: *HR* Enoxaparin 40 MG/0.4 ML SYRINGE SQ SCH (11:05)
--- NOTE | 2017-01-13 11:50 | Internal Med History&Physical ---
Date of Encounter: 01/13/17 Time of Encounter: 11:30 Assessment and Plan (1) Urinary tract infection Current visit: Yes Status: Acute She has been started on Rocephin empirically. Lactobacillus will be added. Further workup will be done as needed. Qualifiers: Urinary tract infection type: acute cystitis Hematuria presence: without hematuria Qualified Code(s): N30.00 - Acute cystitis without hematuria (2) Hypothermia Current visit: No Status: Acute Suspect primarily due to UTI with possible underlying ROAD MARKER component Qualifiers: Encounter type: initial encounter Qualified Code(s): T68.XXXA - Hypothermia , initial encounter Internal Medicine - H&P: HPI Chief complaint: Hypothermia Admitted From: Home Plans for Post Hospital Care: Home History of present illness: Ms. Noel is a 41 year old female who was brought to the emergency room after staff at the [facility] recorded a TM temperature of 92-94 F. She was evaluated in emergency room and felt to have hypothermia due to possible UTI. She was admitted to [facility] floor for ongoing care needs. She is non-communicative due to MRDD. She was hospitalized at [facility] in July, September , and October 2016 with similar complaints. Past Med Surg Social Fam HX - Past Medical History Medical history: arthritis, GERD, hyperlipidemia, seizures, other Psychiatric history: no psych history - Past Surgical History Surgical History: other - Social History Smoking Status: Never smoker Smokeless Tobacco Status: No Alcohol use: none Drug use: none - Family History Mother History Unknown: Yes Internal Medicine - H&P: Meds Atropine 1% Opth Drops 1 - 2 drp SL Q4-6H PRN 04/02/15 [History] lamoTRIgine [Lamictal] 300 mg GTUBE QAM 04/02/15 [History] Albuterol Neb [Proventil Neb] 10 mg AER PRN PRN 05/05/15 [History] DiphenhydraMINE [Benadryl] 25 mg PO Q6HR PRN 02/17/16 [History] Loperamide [Imodium] 2 mg PO DAILY PRN 02/17/16 [History] Lovastatin [Mevacor] 20 mg PO HS 02/17/16 [History] Pseudoephedrine [Sudafed] 60 mg PO Q6H PRN 02/17/16 [History] Medroxyprogesterone Acetate [Depo-Provera] 150 mg IM [id number] 06/23/16 [History] Acetaminophen [Tylenol] 650 mg GTUBE Q4HR PRN 10/15/16 [History] Alendronate Sodium [Fosamax] 70 mg PO QWEEK 10/15/16 [History] Docusate [Colace] 100 mg GTUBE BID 10/15/16 [History] Mag Hydrox/Aluminum Hyd/Simeth [Cvs Antacid-Antigas Liquid] 30 ml GTUBE Q4H PRN 10/15/16 [History] Magnesium Hydroxide [Milk of Magnesia] 30 ml GTUBE Q72H PRN 10/15/16 [History] Polyvinyl Alcohol [Artificial Tears] 1 drop OP DAILY 10/15/16 [History] lamoTRIgine [Lamotrigine] 200 mg GTUBE QPM 10/17/16 [History] Baclofen 20 mg GTUBE TID 11/10/16 [History] Diazepam [Diastat Acudial] 1 each RC PRN PRN 11/10/16 [History] Ibuprofen [Motrin] 400 mg PO Q4HR PRN 11/10/16 [History] Polyethylene Glycol 3350 [Gavilax] 17 gm GTUBE QAM 11/10/16 [History] Saliva Stimulant [Biotene Moisturizing Rinse] 0 ml GTUBE Q8H 11/10/16 [History] Cefixime [Suprax] 200 mg PO Q12H #30 mls 11/13/16 [Rx] Lactobacillus [Culturelle] 1 each PO BID #6 cap.sprink 11/13/16 [Rx] 3 Allergy/AdvReac Type Severity Reaction Status Date / Time No Known Allergies Allergy Verified 05/05/15 20:33 All Systems PM: A 10-system review of systems was performed and is negative for pertinent findings except as documented above in the HPI. Review of systems: Review of systems from the October [address] [facility] hospitalization were reviewed and revised as below. Gen.: Her weight has increased from 44.18 kg at discharge April 2015 to 54.431 kg on admission now. Cardiovascular: There is no known hypertension heart failure angina DVT or pulmonary embolus Respiratory: Smoking history is not known. She does not have documented chronic lung disease in available records. GI: She has GERD by history. There is no known disorder of her liver gallbladder or exocrine pancreas. She had fecal impaction requiring disimpaction during her April 2015 hospitalization. : There is no mention of hematuria dysuria or kidney stones. She has had frequent UTIs reported. She had urinary retention during her last hospitalization requiring Cheek catheter insertion briefly. Endocrine: There is no known diabetes thyroid disease or hyperlipidemia Hematology/oncology: She has a history of anemia that has resolved. She does not have other known blood disorders or internal malignancies Neurologic: She has a diagnoses of seizure disorder, encephalopathy, cortical blindness, and optic atrophy. Psychiatric: She has no known anxiety depression or other mental health issues Musculoskeletal: She has had fractures of the right radius, right tibia, right humeral head, and left humerus neck. 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 - Constitutional Vitals: Temp Pulse Resp BP Pulse Ox 97.0 F L 79 18 110/72 93 01/13/17 09:51 01/13/17 09:51 01/13/17 09:51 01/13/17 09:51 01/13/17 09:51 Exam: Gen.: She is a well-nourished female lying in bed with minimal response to voice and light touch HEENT: Head is atraumatic and normocephalic. Eyes: She has a disconjugate gaze. There is no scleral icterus. Mouth: She does not open her mouth well for examination Neck: There is no thyromegaly or adenopathy noted Heart: Regular without murmurs gallops or ectopics Lungs: No wheezes or crackles are heard. Abdomen: Soft and nontender. G-tube is in place in the left upper quadrant. There is a well-healed longitudinal midline scar. No masses or guarding are noted. Exam is limited because she is in the position with contracture of the arms overlying the abdomen. Extremities: she has small and slightly deformed feet. There is no pitting edema or cyanosis noted. Her arms are in contracture positions at the wrists and elbows. Neurologic: Mental status: She is nonverbal and does not respond significantly to voice or light touch. Cranial nerves: She has a disconjugate gaze. There appears to be EOMI from random observation. She does not make facial movements spontaneously or on command. Motor: She does not move spontaneously. Her arms are in a contracted position as per above. She does not move her legs. No further neurologic testing is attempted. Skin: Warm and dry Internal Med - H&P Results - Labs CBC & Chem 7: 01/13/17 05:27 01/13/17 05:27
[2017-01-14] MEDS: 0.9 % Sodium Chloride 1,000 ML IVC SCH (04:27)
[2017-01-14] MEDS: *HR* Enoxaparin 40 MG/0.4 ML SYRINGE SQ SCH (07:48)
[2017-01-14] MEDS: Albuterol 2.5 MG/3 ML NEBULIZER IH PRN (13:38)
--- NOTE | 2017-01-14 16:20 | Internal Med Progress Note ---
Date of Encounter: 01/14/17 Time of Encounter: 16:10 - Assessment and plan (1) Urinary tract infection Current Visit: Yes Status: Acute Assessment and plan: January 14. Continue Rocephin and lactobacillus. Qualifiers: Urinary tract infection type: acute cystitis Hematuria presence: without hematuria Qualified Code(s): N30.00 - Acute cystitis without hematuria (2) Hypothermia Current Visit: No Status: Acute Assessment and plan: January 14. Resolved. Continue treatment for UTI. Qualifiers: Encounter type: initial encounter Qualified Code(s): T68.XXXA - Hypothermia , initial encounter - Subjective Interval history: January 14. She has had no new problems develop. She remains nonverbal. - Constitutional Vitals: Temp Pulse Resp BP Pulse Ox 98.7 F 100 18 117/78 95 01/14/17 15:24 01/14/17 15:24 01/14/17 15:24 01/14/17 15:24 01/14/17 15:24 Exam: She is resting in bed and appears in no acute distress. Extremities show no edema. Heart is regular with tone soft. I reviewed her medications and lab results. Preliminary urine culture shows Morganella without sensitivities listed. Internal Medicine: Result - Labs CBC & Chem 7: 01/13/17 05:27 01/13/17 05:27 Consult Discharge Plan - Plan Referrals: Nadira Glynn MD [Primary Care Provider] - 1 week
[2017-01-14] MEDS: lamoTRIgine 100 MG TABLET PO SCH (20:53)
[2017-01-15 06:18] LABS: Basophils # 0.1 K/mcL (0.0-0.2); Basophils % 0.6 %; Eosinophils # 0.4 K/mcL (0.0-0.6); Eosinophils % 3.6 %; Hematocrit 38.4 % (35.3-44.9); Hemoglobin 12.8 g/dL (11.5-15.4); Immature Granulocytes % 0.3 % (0-4); Lymphocytes # 2.8 K/mcL (0.6-4.6); Lymphocytes % 22.7 %; Mean Corpuscular HGB Conc 33.3 g/dL (31.6-35.5); Mean Corpuscular Hemoglobin 32.2 pg (28.0-33.3); Mean Corpuscular Volume 96.7 fL (83.0-100.0); Monocytes # 0.5 K/mcL (0.0-1.3); Monocytes % 4.3 %; Neutrophils # 8.4 K/mcL (1.6-8.9); Platelet Count 254 K/mcL (140-400); Red Blood Count 3.97 M/mcL (3.82-4.97); Red Cell Distribution Width 15.1 % (11.5-14.5); Segmented Neutrophils % 68.5 %
[2017-01-15 06:34] LABS: Alanine Aminotransferase 52 Units/L (0-55); Albumin 2.5 g/dL (3.5-5.0); Albumin/Globulin Ratio 0.6 (1.1-2.2); Alkaline Phosphatase 158 Units/L (38-126); Aspartate Amino Transferase 33 Units/L (5-34); BUN/Creatinine Ratio 17 (6-26); Bilirubin,Total 0.3 mg/dL (0.2-1.2); Blood Urea Nitrogen 11 mg/dL (7-20); Calcium 9.1 mg/dL (8.6-10.8); Carbon Dioxide 22 mEq/L (19-29); Chloride 114 mEq/L (98-109); Globulin 4.1 g/dL (2.4-3.5); Glucose 72 mg/dL (70-99); Osmolality,Calculated 296 (280-300); Potassium 3.6 mEq/L (3.5-4.5); Sodium 144 mEq/L (136-145); Total Protein 6.6 g/dL (6.0-8.3); eGFR For African Americans > 60 (> 60); eGFR For Non-African Americans > 60 (> 60)
[2017-01-15] MEDS: *HR* Enoxaparin 40 MG/0.4 ML SYRINGE SQ SCH (07:30)
[2017-01-15] MEDS: Albuterol 2.5 MG/3 ML NEBULIZER IH PRN ×2 (08:37→19:47)
--- NOTE | 2017-01-15 11:07 | Internal Med Progress Note ---
Date of Encounter: 01/15/17 Time of Encounter: 11:00 - Assessment and plan (1) Urinary tract infection Current Visit: Yes Status: Acute Assessment and plan: January 14. Continue Rocephin and lactobacillus. January 15. Continue Rocephin and lactobacillus and await final urine culture report. Qualifiers: Urinary tract infection type: acute cystitis Hematuria presence: without hematuria Qualified Code(s): N30.00 - Acute cystitis without hematuria (2) Hypothermia Current Visit: No Status: Acute Assessment and plan: January 14. Resolved. Continue treatment for UTI. Qualifiers: Encounter type: initial encounter Qualified Code(s): T68.XXXA - Hypothermia , initial encounter - Subjective Interval history: January 14. She has had no new problems develop. She remains nonverbal. January 15. There have been no new problems. - Constitutional Vitals: Temp Pulse Resp BP Pulse Ox 99.7 F H 96 16 98/61 90 01/15/17 07:03 01/15/17 07:03 01/15/17 08:42 01/15/17 07:03 01/15/17 08:42 Exam: She remains nonverbal. She is resting comfortably in bed. Temperature has risen to 99.7 this morning. WBC has risen also. Final urine culture report is pending. Internal Medicine: Result - Labs CBC & Chem 7: 01/15/17 04:45 01/15/17 04:45 Labs: Short CBC 01/15/17 Range/Units 04:45 WBC 12.2 H D (4.3-11.1) K/mcL Hgb 12.8 D (11.5-15.4) g/dL Hct 38.4 (35.3-44.9) % Plt Count 254 (140-400) K/mcL Neutrophils # 8.4 (1.6-8.9) K/mcL BMP 01/15/17 04:45 Sodium 144 Potassium 3.6 D Chloride 114 H Carbon Dioxide 22 BUN 11 Creatinine 0.63 Glucose 72 Calcium 9.1 Liver Function 01/15/17 Range/Units 04:45 Total Bilirubin 0.3 (0.2-1.2) mg/dL AST 33 (5-34) Units/L ALT 52 (0-55) Units/L Alkaline Phosphatase 158 H (38-126) Units/L Albumin 2.5 L (3.5-5.0) g/dL Consult Discharge Plan - Plan Referrals: Nadira Glynn MD [Primary Care Provider] - 1 week
[2017-01-15] MEDS: lamoTRIgine 100 MG TABLET PO SCH ×2 (11:17→20:36)
[2017-01-16] MEDS: *HR* Enoxaparin 40 MG/0.4 ML SYRINGE SQ SCH (05:28)
[2017-01-16 06:51] LABS: Basophils # 0.1 K/mcL (0.0-0.2); Basophils % 0.7 %; Eosinophils # 0.4 K/mcL (0.0-0.6); Eosinophils % 5.1 %; Hematocrit 39.9 % (35.3-44.9); Hemoglobin 13.2 g/dL (11.5-15.4); Immature Granulocytes % 0.2 % (0-4); Lymphocytes # 3.3 K/mcL (0.6-4.6); Lymphocytes % 38.8 %; Mean Corpuscular HGB Conc 33.1 g/dL (31.6-35.5); Mean Corpuscular Volume 96.8 fL (83.0-100.0); Mean Platelet Volume 10.7 fL (9.4-12.4); Monocytes # 0.4 K/mcL (0.0-1.3); Monocytes % 4.7 %; Neutrophils # 4.3 K/mcL (1.6-8.9); Platelet Count 263 K/mcL (140-400); Red Blood Count 4.12 M/mcL (3.82-4.97); Red Cell Distribution Width 15.4 % (11.5-14.5); Segmented Neutrophils % 50.5 %
[2017-01-16 07:11] LABS: BUN/Creatinine Ratio 21 (6-26); Blood Urea Nitrogen 16 mg/dL (7-20); Calcium 9.2 mg/dL (8.6-10.8); Carbon Dioxide 19 mEq/L (19-29); Chloride 111 mEq/L (98-109); Glucose 134 mg/dL (70-99); Osmolality,Calculated 295 (280-300); Potassium 3.1 mEq/L (3.5-4.5); Sodium 141 mEq/L (136-145); eGFR For African Americans > 60 (> 60); eGFR For Non-African Americans > 60 (> 60)
[2017-01-16] MEDS: 0.9 % Sodium Chloride 1,000 ML IVC SCH (08:15)
[2017-01-16] MEDS: lamoTRIgine 100 MG TABLET PO SCH (10:18)
[2017-01-16 14:00] VITALS: BP 118/79
--- NOTE | 2017-01-16 16:42 | Discharge Summary ---
Date of Encounter: 01/16/17 Time of Encounter: 16:25 - Discharge Diagnosis (1) Urinary tract infection Priority: Primary Status: Acute Qualifiers: Urinary tract infection type: acute cystitis Hematuria presence: without hematuria Qualified Code(s): N30.00 - Acute cystitis without hematuria (2) Hypothermia Priority: Secondary Status: Resolved Qualifiers: Encounter type: initial encounter Qualified Code(s): T68.XXXA - Hypothermia , initial encounter - Discharge Medications Prescriptions: Cefixime [Suprax] 200 mg GTUBE Q12H #60 mls Lactobacillus [Culturelle] 1 each GTUBE BID #12 cap.sprink Home Medications: Atropine 1% Opth Drops 1 - 2 drp SL Q4-6H PRN 04/02/15 [History] lamoTRIgine [Lamictal] 300 mg GTUBE QAM 04/02/15 [History] Albuterol Neb [Proventil Neb] 10 mg AER PRN PRN 05/05/15 [History] DiphenhydraMINE [Benadryl] 25 mg PO Q6HR PRN 02/17/16 [History] Loperamide [Imodium] 2 mg PO DAILY PRN 02/17/16 [History] Lovastatin [Mevacor] 20 mg PO HS 02/17/16 [History] Pseudoephedrine [Sudafed] 60 mg PO Q6H PRN 02/17/16 [History] Medroxyprogesterone Acetate [Depo-Provera] 150 mg IM [id number] 06/23/16 [History] Acetaminophen [Tylenol] 650 mg GTUBE Q4HR PRN 10/15/16 [History] Alendronate Sodium [Fosamax] 70 mg PO QWEEK 10/15/16 [History] Docusate [Colace] 100 mg GTUBE BID 10/15/16 [History] Mag Hydrox/Aluminum Hyd/Simeth [Cvs Antacid-[place] Liquid] 30 ml GTUBE Q4H PRN 10/15/16 [History] Magnesium Hydroxide [Milk of Magnesia] 30 ml GTUBE Q72H PRN 10/15/16 [History] Polyvinyl Alcohol [Artificial Tears] 1 drop OP DAILY 10/15/16 [History] lamoTRIgine [Lamotrigine] 200 mg GTUBE QPM 10/17/16 [History] Baclofen 20 mg GTUBE TID 11/10/16 [History] Diazepam [Diastat Acudial] 1 each RC PRN PRN 11/10/16 [History] Ibuprofen [Motrin] 400 mg PO Q4HR PRN 11/10/16 [History] Polyethylene Glycol 3350 [Gavilax] 17 gm GTUBE QAM 11/10/16 [History] Saliva Stimulant [Biotene Moisturizing Rinse] 0 ml GTUBE Q8H 11/10/16 [History] Cefixime [Suprax] 200 mg GTUBE Q12H #60 mls 01/16/17 [Rx] Lactobacillus [Culturelle] 1 each GTUBE BID #12 cap.sprink 01/16/17 [Rx] Allergies/Adverse Reactions: 3 Allergy/AdvReac Type Severity Reaction Status Date / Time No Known Allergies Allergy Verified 05/05/15 20:33 Date of admission: 01/13/17 06:40 Primary care physician: Nadira Glynn Consults: 01/13/17 09:49 Consult to Travel Accommodation Inspector [CONS] Routine Reason for SW Consult: d/c planning - Patient Status Disposition: Home, Self-Care Condition: Fair Overall status at discharge: patient is progressing back to baseline - Discharge Instructions Follow Up With: Nadira Glynn MD [Primary Care Provider] - 1 week - Diet and Activity Activity: resume usual activities as tolerated Diet: advance to your usual diet Hospital course: Ms. Noel is a 41 year old female who was brought to the emergency room after staff at the alf recorded a TM temperature of 92-94 F. She was evaluated in emergency room and felt to have hypothermia due to possible UTI. She was admitted to [facility] floor for ongoing care needs. Initial orders were written by the emergency room physician. I saw her on January 13 and performed the history and physical. She was started empirically on Rocephin. Lactobacillus was also given. Urine culture showed Morganella morganii. Final sensitivity report is pending at time of discharge. She had a good clinical response to Rocephin with normalization of temperature. WBC jennifer to 12.2 on January 15 but had improved to 8.6 with no differential left shift on January 16. She will be prescribed Suprax with Lactobacillus for 6 additional days after discharge. Consideration for routine scheduled antibiotic for UTI suppression and/or referral to urology is recommended in view of the patient's multiple episodes of UTI and associated hypothermia. Potassium decreased with IV fluids. She had mild hypokalemia on the day of discharge at 3.1 and was given 40 mEq potassium per G-tube prior to discharge. Dr. Glynn can monitor labs at the alf. She will be discharged back to the alf today and follow with her PCP Dr. Glynn within 1 week. - Time Spent with Patient Total time spent providing and/or coordinating discharge services: - Constitutional Vitals: Temp Pulse Resp BP Pulse Ox 98.1 F 84 22 118/79 96 01/16/17 13:56 01/16/17 13:56 01/16/17 13:56 01/16/17 13:56 01/16/17 13:56
[2017-01-16] MEDS ORDERED: Potassium Chloride Elixir 20 MEQ/15 ML UDC GTUBE ONE (16:44)
== END 2017-01-16 17:59 | DRG 463 ==
LOC: EMEROOPIK 04:57 → INPPIK 04:57
PROVIDERS: ADMIT Internal Medicine; ATTEND Internal Medicine

== ENCOUNTER 2017-04-15 06:52 | Observation (INO) ==
[2017-04-15] MEDS ORDERED: 0.9 % Sodium Chloride 1,000 ML IVC SCH ×3 (07:15→09:28)
[2017-04-15 07:26] LABS: Bilirubin,Urine Negative (Negative); Blood,Urine Moderate (Negative); Clarity,Urine Slightly Cloudy (Clear); Color,Urine Yellow (Yellow); Glucose,Urine (UA) Normal (Normal); Ketones,Urine Negative (Negative); Leukocyte Esterase,Urine Large (Negative); Nitrite,Urine Negative (Negative); Protein,Urine Negative (Neg-Trace); Urobilinogen,Urine Normal (Normal)
[2017-04-15 07:33] LABS: Bacteria,Urine Many per hpf (None-Few); Granular Casts,Urine Few per lpf (None Seen); Renal Epithelial Cells,Urine Moderate per hpf (None-Few); Squamous Epithelial Cell,Urine Few per lpf (None-Few); Transitional Epi Cells,Urine Many per hpf (None-Few); WBC,Urine 15-30 per hpf (0-3)
--- NOTE | 2017-04-15 07:50 | Emergency Department Note ---
Disposition Clinical Impression: Urinary tract infection Disposition: Admitted As Inpatient Condition: Fair Referrals: Nadira Glynn MD [Primary Care Provider] - [facility]: [facility] HPI - General Chief complaint: ED General Medical Stated complaint: possible hypothermia Time Seen by Provider: 04/15/17 06:55 Source: EMS, other Mode of arrival: ambulatory Limitations: physical limitation, other Nursing Notes Reviewed: Yes Vital Signs Reviewed: Yes - History of Present Illness HPI Narrative: Patient reportedly was found at the skilled nursing with a temperature of 94 degrees core temperature rectally and was given a dose of Omnicef and then sent worsen for evaluation typically when this occurs she has an underlying the urinary tract infection or some sort of infection and kidney would be septic as result patient is nonverbal and unable to provide any additional history except for moaning patient is not as responsive according to the skilled nursing and she typically is Onset (ago): unknown Location: other (body temp low) Radiation: non-radiation Pain Scale: 0 Improves with: nothing Worsens with: nothing Associated symptoms: Reports: fever/chills Treatments Prior to Arrival: heat therapy - Related Data Home Medications Medication Instructions Recorded Confirmed Atropine 1% Opth Drops 1 - 2 drp SL Q4-6H PRN 04/02/15 01/19/17 lamoTRIgine [Lamictal] 300 mg GTUBE QAM 04/02/15 01/19/17 Albuterol Neb [Proventil Neb] 10 mg AER PRN PRN 05/05/15 01/19/17 DiphenhydraMINE [Benadryl] 25 mg PO Q6HR PRN 02/17/16 01/19/17 Loperamide [Imodium] 2 mg PO DAILY PRN 02/17/16 01/19/17 Lovastatin [Mevacor] 20 mg PO HS 02/17/16 01/19/17 Pseudoephedrine [Sudafed] 60 mg PO Q6H PRN 02/17/16 01/19/17 Medroxyprogesterone Acetate 150 mg IM [id number] 06/23/16 01/19/17 [Depo-Provera] Acetaminophen [Tylenol] 650 mg GTUBE Q4HR PRN 10/15/16 01/19/17 Alendronate Sodium [Fosamax] 70 mg PO QWEEK 10/15/16 01/19/17 Docusate [Colace] 100 mg GTUBE BID 10/15/16 01/19/17 Mag Hydrox/Aluminum Hyd/Simeth 30 ml GTUBE Q4H PRN 10/15/16 01/19/17 [Cvs Antacid-[place]igas Liquid] Magnesium Hydroxide [Milk of 30 ml GTUBE Q72H PRN 10/15/16 01/19/17 Magnesia] Polyvinyl Alcohol [Artificial 1 drop OP DAILY 10/15/16 01/19/17 Tears] lamoTRIgine [Lamotrigine] 200 mg GTUBE QPM 10/17/16 01/19/17 Baclofen 20 mg GTUBE TID 11/10/16 01/19/17 Diazepam [Diastat Acudial] 1 each RC PRN PRN 11/10/16 01/19/17 Ibuprofen [Motrin] 400 mg PO Q4HR PRN 11/10/16 01/19/17 Polyethylene Glycol 3350 [Gavilax] 17 gm GTUBE QAM 11/10/16 01/19/17 Saliva Stimulant [Biotene 0 ml GTUBE Q8H 11/10/16 01/19/17 Moisturizing Rinse] Previous Rx's Medication Instructions Recorded Cefixime [Suprax] 200 mg GTUBE Q12H #60 mls 01/16/17 Lactobacillus [Culturelle] 1 each GTUBE BID #12 cap.[email or web address] 01/16/17 Allergies Allergy/AdvReac Type Severity Reaction Status Date / Time No Known Allergies Allergy Verified 05/05/15 20:33 Limitations: ROS unobtainable due to patients medical condition (skilled nursing states cold) Past Medical History - Past Medical History Source: unable to obtain, old records reviewed, nursing notes reviewed Medical history: Reports: arthritis, GERD, hyperlipidemia, osteoporosis, seizures, other Surgical history: Reports: other Psychiatric history: Reports: no psych history CYBER SECURITY ANALYST history: Reports: no CYBER SECURITY ANALYST history - Social History Smoking Status: Never smoker Smokeless Tobacco Status: No Alcohol use: Reports: none Drug use: Reports: none Physical Exam - General Limitations: physical limitation, other General appearance: alert, in no apparent distress, lethargic - Head Head exam: atraumatic, normocephalic, normal inspection - Eye Eye exam: Present: normal appearance, PERRL, EOMI - ENT ENT exam: normal exam, normal oropharynx, mucous membranes dry, TM's normal bilaterally, normal external ear exam - Neck Neck exam: Present: normal inspection, full ROM, trachea midline - Chest Chest inspection: Present: normal inspection, symmetric chest wall rise - Respiratory Respiratory exam: Present: normal lung sounds bilaterally - Cardiovascular Cardiovascular exam: Present: regular rate, normal rhythm, normal heart sounds - Abdominal Exam Abdominal exam: Present: soft, Non-Tender, normal bowel sounds, other (tube feed ). Absent: mass, pulsatile mass - Expanded Upper Extremity Exam Shoulder exam: Present: other (Contractures of the upper extremities with marked stiffness with movement of the elbow joints shoulder and into the hands Ohls to pain Refill less cyanosis did range of motion) Neurosensory exam: Normal: radial nerve, ulnar nerve, median nerve Vascular exam: Normal: capillary refill, radial pulse, ulnar pulse - Expanded Lower Extremity Exam Hip/Pelvis exam: Present: other (Bilateral lower extremity flexion contractures at the hips and at the knees slight contracture noted that the ankles is capillary refill is cyanosis noted) Gait: observed and normal - Back Exam Back exam: Present: normal inspection, full ROM. Absent: muscle spasm - Neurological Exam Neurological exam: Present: alert, oriented X3, CN II-XII intact, normal gait - Psychiatric Psychiatric exam: Present: normal affect, normal mood - Skin Skin exam: Present: warm, dry, intact, normal color Course Course Narrative: Patient seen and examined laboratory data IV antibiotics at the time patient does not meet criteria for sepsis but has an underlying urinary tract infection which can possibly turn into septic type presentation we will continue to monitor on the floor patient be transferred to [facility] anabiotic started in the ER Vital Signs Temperature 94.7 F L 04/15/17 06:54 Pulse Rate 55 04/15/17 06:54 Respiratory Rate 18 04/15/17 06:54 Blood Pressure 119/50 04/15/17 06:54 O2 Sat by Pulse Oximetry 97 04/15/17 06:54 Temperature 94.7 F L 04/15/17 06:54 Pulse Rate 55 04/15/17 06:54 Respiratory Rate 18 04/15/17 06:54 Blood Pressure 119/50 04/15/17 06:54 O2 Sat by Pulse Oximetry 97 04/15/17 06:54 Oxygen Delivery Oxygen Delivery Room Air Medical Decision Making - MDM Narrative Medical decision making narrative: UTI pneumonia peritonitis abscess could be sources for the risk of sepsis - Medical Records Medical records reviewed: Yes I reviewed the patient's medical records. Critical Care Time Critical Care Time: No
[2017-04-15 08:07] LABS: Basophils # 0.1 K/mcL (0.0-0.2); Basophils % 1.2 %; Eosinophils # 0.2 K/mcL (0.0-0.6); Eosinophils % 3.6 %; Hematocrit 44.3 % (35.3-44.9); Lymphocytes # 2.8 K/mcL (0.6-4.6); Lymphocytes % 65.6 %; Mean Corpuscular HGB Conc 33.9 g/dL (31.6-35.5); Mean Corpuscular Hemoglobin 31.9 pg (28.0-33.3); Mean Corpuscular Volume 94.3 fL (83.0-100.0); Mean Platelet Volume 10.6 fL (9.4-12.4); Monocytes # 0.4 K/mcL (0.0-1.3); Neutrophils # 0.9 K/mcL (1.6-8.9); Platelet Count 239 K/mcL (140-400); Red Cell Distribution Width 14.3 % (11.5-14.5); Segmented Neutrophils % 20.6 %
[2017-04-15 08:14] LABS: INR 1.1; Prothrombin Time 11.5 Seconds (9.4-12.1)
[2017-04-15 08:25] LABS: Alanine Aminotransferase 57 Units/L (0-55); Albumin 3.1 g/dL (3.5-5.0); Albumin/Globulin Ratio 0.7 (1.1-2.2); Alkaline Phosphatase 157 Units/L (38-126); Aspartate Amino Transferase 32 Units/L (5-34); BUN/Creatinine Ratio 32 (6-26); Bilirubin,Total 0.4 mg/dL (0.2-1.2); Blood Urea Nitrogen 22 mg/dL (7-20); Calcium 9.8 mg/dL (8.6-10.8); Carbon Dioxide 26 mEq/L (19-29); Chloride 107 mEq/L (98-109); Globulin 4.2 g/dL (2.4-3.5); Glucose 79 mg/dL (70-99); Osmolality,Calculated 294 (280-300); Potassium 3.8 mEq/L (3.5-4.5); Sodium 141 mEq/L (136-145); Total Protein 7.3 g/dL (6.0-8.3); eGFR For African Americans > 60 (> 60); eGFR For Non-African Americans > 60 (> 60)
[2017-04-15 09:08] LABS: Platelet Estimate Normal (Normal)
[2017-04-15] MEDS ORDERED: MOM Conc 10 ML UD.LIQ GTUBE PRN (09:28)
[2017-04-15] MEDS ORDERED: Mag Hydrox/Al Hydrox/Simeth 30 ML UDC GTUBE PRN (09:28)
[2017-04-15] MEDS ORDERED: Cefdinir 300 MG CAPSULE PO SCH (09:28)
[2017-04-15] MEDS ORDERED: Naloxone 0.4 MG/ML INJ IVP PRN (09:28)
[2017-04-15] MEDS ORDERED: DIAZEPAM RC PRN (09:28)
[2017-04-15] MEDS ORDERED: Albuterol 2.5 MG/3 ML NEBULIZER AER PRN ×2 (09:28→15:28)
[2017-04-15] MEDS ORDERED: Acetaminophen 325 MG TABLET PO PRN (09:28)
[2017-04-15] MEDS ORDERED: Loperamide 1 MG/5 ML UDC GTUBE PRN (09:28)
[2017-04-15] MEDS ORDERED: NON-FORMULARY MEDICATION 1 EACH EACH (Alendronate Sodium [Fosamax] 70 MG) PO SCH (09:28)
[2017-04-15] MEDS: 0.9 % Sodium Chloride 1,000 ML IVC SCH ×2 (11:22→22:12)
[2017-04-15] MEDS: Docusate Oral Soln 100 MG/10 ML UDC GTUBE SCH ×2 (12:50→22:07)
[2017-04-15] MEDS: Lactobacillus 1 EACH CAP.SPRINK GTUBE SCH ×2 (13:06→22:07)
[2017-04-15] MEDS: lamoTRIgine 100 MG TABLET GTUBE SCH ×2 (13:06→15:54)
[2017-04-15] MEDS: Baclofen 10 MG TABLET GTUBE SCH ×3 (13:06→22:08)
[2017-04-15] MEDS: Artificial Tears SOLN 15 ML BOTTLE OP SCH (13:07)
[2017-04-15] MEDS ORDERED: *HR* LORazepam 2 MG/ML VIAL IVP PRN (15:27)
--- NOTE | 2017-04-15 16:33 | Internal Med History&Physical ---
Date of Encounter: 04/15/17 Time of Encounter: 16:20 Assessment and Plan (1) Urinary tract infection Current visit: Yes Status: Acute She was given Rocephin in the emergency room. We will continue this with lactobacillus and recheck labs in a.m. Qualifiers: Urinary tract infection type: site unspecified Hematuria presence: with hematuria Qualified Code(s): N39.0 - Urinary tract infection, site not specified; R31.9 - Hematuria, unspecified; R31.9 - Hematuria, unspecified (2) Hypothermia Current visit: No Status: Acute Improved. Probably secondary to UTI. We will treat as per above. Qualifiers: Encounter type: initial encounter Qualified Code(s): T68.XXXA - Hypothermia , initial encounter Internal Medicine - H&P: HPI Chief complaint: Hypothermia Admitted From: Home Plans for Post Hospital Care: Home History of present illness: Ms. Noel is a 41 year old female who was brought to emergency room after staff at the custodial reported her to have core temperature of 94 F rectally. She was given Omnicef and sent to emergency room for evaluation. Temperature in emergency room was 94.7 F. She was admitted to [facility] floor for ongoing care needs. 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 She was hospitalized at [facility] in July and December 2016 for similar problems. Past Med Surg Social Fam HX - Past Medical History Medical history: arthritis, GERD, hyperlipidemia, osteoporosis, seizures, other Psychiatric history: no psych history - Past Surgical History Surgical History: other - Social History Smoking Status: Never smoker Smokeless Tobacco Status: No Alcohol use: none Drug use: none Internal Medicine - H&P: Meds Atropine 1% Opth Drops 1 - 2 drp SL Q4-6H PRN 04/02/15 [History] lamoTRIgine [Lamictal] 300 mg GTUBE QAM 04/02/15 [History] Albuterol Neb [Proventil Neb] 10 mg AER PRN PRN 05/05/15 [History] DiphenhydraMINE [Benadryl] 25 mg GTUBE Q6HR PRN 02/17/16 [History] Loperamide [Imodium] 2 mg PO DAILY PRN 02/17/16 [History] Lovastatin [Mevacor] 20 mg GTUBE HS 02/17/16 [History] Pseudoephedrine [Sudafed] 60 mg PO Q6H PRN 02/17/16 [History] Medroxyprogesterone Acetate [Depo-Provera] 150 mg IM [id number] 06/23/16 [History] Acetaminophen [Tylenol] 650 mg GTUBE Q4HR PRN 10/15/16 [History] Docusate [Colace] 100 mg GTUBE BID 10/15/16 [History] Mag Hydrox/Aluminum Hyd/Simeth [Cvs Antacid-Antigas Liquid] 30 ml GTUBE Q4H PRN 10/15/16 [History] Magnesium Hydroxide [Milk of Magnesia] 30 ml GTUBE Q72H PRN 10/15/16 [History] Polyvinyl Alcohol [Artificial Tears] 1 drop OP DAILY 10/15/16 [History] lamoTRIgine [Lamotrigine] 200 mg GTUBE QPM 10/17/16 [History] Baclofen 20 mg GTUBE TID 11/10/16 [History] Diazepam [Diastat Acudial] 1 each RC PRN PRN 11/10/16 [History] Ibuprofen [Motrin] 400 mg PO Q4HR PRN 11/10/16 [History] Polyethylene Glycol 3350 [Gavilax] 17 gm GTUBE QAM 11/10/16 [History] Saliva Stimulant [Biotene Moisturizing Rinse] 0 ml GTUBE Q8H 11/10/16 [History] Calcitonin,[place],Synthetic [Calcitonin-[place]] 200 units NS DAILY 04/15/17 [ History] Loratadine [Allergy Relief] 10 mg GTUBE DAILY 04/15/17 [History] 3 Allergy/AdvReac Type Severity Reaction Status Date / Time No Known Allergies Allergy Verified 05/05/15 20:33 All Systems PM: A 10-system review of systems was performed and is negative for pertinent findings except as documented above in the HPI. Review of systems: Review of systems from the December 2016 [facility] hospitalization were reviewed and revised as below. Gen.: Her weight has increased from 44.18 kg at discharge April 2015 to 56.387 kg now. Cardiovascular: There is no known hypertension heart failure angina DVT or pulmonary embolus Respiratory: Smoking history is not known. She does not have documented chronic lung disease in available records. GI: She has GERD by history. There is no known disorder of her liver gallbladder or exocrine pancreas. She had fecal impaction requiring disimpaction during her April 2015 hospitalization. : There is no mention of hematuria dysuria or kidney stones. She has had frequent UTIs. She had urinary retention during a previous hospitalization requiring Cheek catheter insertion briefly. Endocrine: There is no known diabetes thyroid disease or hyperlipidemia Hematology/oncology: She has a history of anemia that has resolved. She does not have other known blood disorders or internal malignancies Neurologic: She has a diagnoses of seizure disorder, encephalopathy, cortical blindness, and optic atrophy. Psychiatric: She has no known anxiety depression or other mental health issues Musculoskeletal: She has had fractures of the right radius, right tibia, right humeral head, and left humerus neck. 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 - Constitutional Vitals: Temp Pulse Resp BP Pulse Ox 96.1 F L 54 17 128/84 94 04/15/17 15:21 04/15/17 15:21 04/15/17 15:21 04/15/17 15:21 04/15/17 15:21 Exam: Gen.: She is a well-developed female lying in bed who appears in no acute distress HEENT: Head shows slight microcephaly. It is atraumatic. Eyes: EOMI. Her gaze is conjugate. There is no scleral icterus. Mouth: She does not open her mouth for examination Neck: There is no thyromegaly or adenopathy noted. Heart: Regular without murmurs gallops or ectopics Lungs: Clear anteriorly and laterally. Abdomen: G-tube is in place in the epigastric area. There is a healed longitudinal surgical midline scar. No masses or guarding noted. Extremities: She appears to have deformities of the feet. She is wearing tight fitting crocheted booties which I did not remove. There is no edema of her lower anterior shins. She is holding her arms in a contracted decorticate position. Neurologic: Mental status: She is nonverbal and does not follow commands. Cranial nerves: Her gaze appears conjugate from random observation. She has no spontaneous facial movements. Motor: She holds her arms in a contracted position as per above. She does not spontaneously move her arms or legs. No further neurologic testing is attempted. Skin: Warm and dry Internal Med - H&P Results - Labs CBC & Chem 7: 04/15/17 07:55 04/15/17 07:55
[2017-04-16 06:29] LABS: Basophils # 0.1 K/mcL (0.0-0.2); Basophils % 0.7 %; Eosinophils # 0.1 K/mcL (0.0-0.6); Eosinophils % 1.3 %; Immature Granulocytes % 0.3 % (0-4); Lymphocytes % 23.4 %; Mean Corpuscular HGB Conc 33.3 g/dL (31.6-35.5); Mean Corpuscular Hemoglobin 31.3 pg (28.0-33.3); Mean Platelet Volume 10.6 fL (9.4-12.4); Monocytes # 0.4 K/mcL (0.0-1.3); Monocytes % 5.9 %; Neutrophils # 5.1 K/mcL (1.6-8.9); Platelet Count 239 K/mcL (140-400); Red Blood Count 4.47 M/mcL (3.82-4.97); Red Cell Distribution Width 14.3 % (11.5-14.5); Segmented Neutrophils % 68.4 %
[2017-04-16 06:30] LABS: Lymphocytes # 1.8 K/mcL (0.6-4.6)
[2017-04-16 06:47] LABS: BUN/Creatinine Ratio 34 (6-26); Blood Urea Nitrogen 21 mg/dL (7-20); Calcium 8.9 mg/dL (8.6-10.8); Carbon Dioxide 21 mEq/L (19-29); Chloride 114 mEq/L (98-109); Glucose 74 mg/dL (70-99); Osmolality,Calculated 296 (280-300); Potassium 4.2 mEq/L (3.5-4.5); Sodium 142 mEq/L (136-145); eGFR For African Americans > 60 (> 60); eGFR For Non-African Americans > 60 (> 60)
[2017-04-16] MEDS: 0.9 % Sodium Chloride 1,000 ML IVC SCH (06:50)
[2017-04-16] MEDS: Artificial Tears SOLN 15 ML BOTTLE OP SCH (09:00)
[2017-04-16] MEDS: cefTRIAXone 1,000 MG in Water for inj. (sterile) 10 ML IVP SCH (09:14)
[2017-04-16] MEDS: Lactobacillus 1 EACH CAP.SPRINK GTUBE SCH ×2 (09:14→20:49)
[2017-04-16] MEDS: Baclofen 10 MG TABLET GTUBE SCH ×3 (09:15→20:49)
[2017-04-16] MEDS: lamoTRIgine 100 MG TABLET GTUBE SCH ×2 (09:15→18:30)
[2017-04-16] MEDS: Docusate Oral Soln 100 MG/10 ML UDC GTUBE SCH ×2 (09:15→20:49)
--- NOTE | 2017-04-16 10:24 | Internal Med Progress Note ---
Date of Encounter: 04/16/17 Time of Encounter: 10:15 - Assessment and plan (1) Urinary tract infection Current Visit: Yes Status: Acute Assessment and plan: April 16. Urine C&S is pending. Continue IV Rocephin with lactobacillus. Qualifiers: Urinary tract infection type: site unspecified Hematuria presence: with hematuria Qualified Code(s): N39.0 - Urinary tract infection, site not specified; R31.9 - Hematuria, unspecified; R31.9 - Hematuria, unspecified (2) Hypothermia Current Visit: No Status: Acute Assessment and plan: April 16. Continue treatment for UTI and warming blankets etc. Qualifiers: Encounter type: initial encounter Qualified Code(s): T68.XXXA - Hypothermia , initial encounter - Subjective Interval history: April 16. No new problems have arisen. She is nonverbal. - Constitutional Vitals: Temp Pulse Resp BP Pulse Ox 97.4 F L 81 16 94/85 97 04/16/17 07:09 04/16/17 07:09 04/16/17 07:09 04/16/17 07:09 04/16/17 07:09 Exam: She is resting quietly in bed and appears in no acute distress. Heart is regular without murmurs gallops or ectopics. Lungs are clear anteriorly. Extremities show no edema. I reviewed her medications and lab results. Internal Medicine: Result - Labs CBC & Chem 7: 04/16/17 06:15 04/16/17 06:15 Labs: Short CBC 04/16/17 Range/Units 06:15 WBC 7.5 D (4.3-11.1) K/mcL Hgb 14.0 (11.5-15.4) g/dL Hct 42.0 (35.3-44.9) % Plt Count 239 (140-400) K/mcL Neutrophils # 5.1 (1.6-8.9) K/mcL BMP 04/16/17 06:15 Sodium 142 Potassium 4.2 Chloride 114 H Carbon Dioxide 21 BUN 21 H Creatinine 0.61 Glucose 74 Calcium 8.9 - ABG Interpretation ABG results: PT/INR, D-dimer PT 11.5 Seconds (9.4-12.1) 04/15/17 07:55 Consult Discharge Plan - Plan Referrals: Nadira Glynn MD [Primary Care Provider] - 1 week
[2017-04-16] MEDS ORDERED: 0.9 % Sodium Chloride 1,000 ML IVC SCH (10:30)
[2017-04-17] MEDS ORDERED: *HR* Enoxaparin 40 MG/0.4 ML SYRINGE SQ SCH (06:00)
[2017-04-17 06:56] VITALS: BP 99/56
[2017-04-17] MEDS: lamoTRIgine 100 MG TABLET GTUBE SCH (07:40)
[2017-04-17] MEDS: Lactobacillus 1 EACH CAP.SPRINK GTUBE SCH (07:42)
[2017-04-17] MEDS: Baclofen 10 MG TABLET GTUBE SCH (07:42)
[2017-04-17] MEDS: cefTRIAXone 1,000 MG in Water for inj. (sterile) 10 ML IVP SCH (07:43)
[2017-04-17] MEDS: Docusate Oral Soln 100 MG/10 ML UDC GTUBE SCH (07:45)
--- NOTE | 2017-04-17 10:00 | Discharge Summary ---
Date of Encounter: 04/17/17 Time of Encounter: 09:50 - Discharge Diagnosis (1) Urinary tract infection Priority: Primary Status: Acute Qualifiers: Urinary tract infection type: site unspecified Hematuria presence: with hematuria Qualified Code(s): N39.0 - Urinary tract infection, site not specified; R31.9 - Hematuria, unspecified; R31.9 - Hematuria, unspecified (2) Hypothermia Priority: Secondary Status: Acute Qualifiers: Encounter type: initial encounter Qualified Code(s): T68.XXXA - Hypothermia , initial encounter - Discharge Medications Prescriptions: Cefixime [Suprax] 400 mg PO DAILY #150 mls Lactobacillus [Culturelle] 1 each PO BID #30 cap.[email or web address] Home Medications: Atropine 1% Opth Drops 1 - 2 drp SL Q4-6H PRN 04/02/15 [History] lamoTRIgine [Lamictal] 300 mg GTUBE QAM 04/02/15 [History] Albuterol Neb [Proventil Neb] 10 mg AER PRN PRN 05/05/15 [History] DiphenhydraMINE [Benadryl] 25 mg GTUBE Q6HR PRN 02/17/16 [History] Loperamide [Imodium] 2 mg PO DAILY PRN 02/17/16 [History] Lovastatin [Mevacor] 20 mg GTUBE HS 02/17/16 [History] Pseudoephedrine [Sudafed] 60 mg PO Q6H PRN 02/17/16 [History] Medroxyprogesterone Acetate [Depo-Provera] 150 mg IM [id number] 06/23/16 [History] Acetaminophen [Tylenol] 650 mg GTUBE Q4HR PRN 10/15/16 [History] Docusate [Colace] 100 mg GTUBE BID 10/15/16 [History] Mag Hydrox/Aluminum Hyd/Simeth [Cvs Antacid-[place] Liquid] 30 ml GTUBE Q4H PRN 10/15/16 [History] Magnesium Hydroxide [Milk of Magnesia] 30 ml GTUBE Q72H PRN 10/15/16 [History] Polyvinyl Alcohol [Artificial Tears] 1 drop OP DAILY 10/15/16 [History] lamoTRIgine [Lamotrigine] 200 mg GTUBE QPM 10/17/16 [History] Baclofen 20 mg GTUBE TID 11/10/16 [History] Diazepam [Diastat Acudial] 1 each RC PRN PRN 11/10/16 [History] Ibuprofen [Motrin] 400 mg PO Q4HR PRN 11/10/16 [History] Polyethylene Glycol 3350 [Gavilax] 17 gm GTUBE QAM 11/10/16 [History] Saliva Stimulant [Biotene Moisturizing Rinse] 0 ml GTUBE Q8H 11/10/16 [History] Calcitonin,[place],Synthetic [Calcitonin-[place]] 200 units NS DAILY 04/15/17 [ History] Loratadine [Allergy Relief] 10 mg GTUBE DAILY 04/15/17 [History] Cefixime [Suprax] 400 mg PO DAILY #150 mls 04/17/17 [Rx] Lactobacillus [Culturelle] 1 each PO BID #30 cap.sprink 04/17/17 [Rx] Allergies/Adverse Reactions: 3 Allergy/AdvReac Type Severity Reaction Status Date / Time No Known Allergies Allergy Verified 05/05/15 20:33 Date of admission: 04/15/17 08:21 Primary care physician: Nadira Glynn Consults: 04/15/17 18:44 Consult to Nutrition [CONS] Routine Comment: Consulting Provider: NUTRITION Reason for Dietary Consult: MST Score - Patient Status Disposition: Home, Self-Care Condition: Fair Functional capacity at discharge: bed bound Overall status at discharge: patient is progressing back to baseline - Discharge Instructions Follow Up With: Nadira Glynn MD [Primary Care Provider] - 1 week - Diet and Activity Activity: resume usual activities as tolerated Diet: advance to your usual diet Hospital course: Ms. Noel is a 41 year old female who was brought to emergency room after staff at the custodial reported her to have core temperature of 94 F rectally. She was given Omnicef and sent to emergency room for evaluation. Temperature in emergency room was 94.7 F. She was admitted to [facility] floor for ongoing care needs. Initial orders were written by the emergency room physician. I saw her on April 15 and performed the history and physical. She was started on Rocephin empirically in emergency room. Lactobacillus was also given. Urine culture returned showing Morganella sensitive to Rocephin. She will be discharged home on Suprax 400 mg daily for 15 additional days. She will continue with Lactobacillus. I would recommend she be placed on a suppressive antibiotic regimen to avoid continuing frequent recurring UTI pattern. Her PCP and/or urologist can order this. She will follow with Dr. Glynn at the custodial. - Time Spent with Patient Total time spent providing and/or coordinating discharge services: - Constitutional Vitals: Temp Pulse Resp BP Pulse Ox 99.7 F H 98 16 99/56 96 04/17/17 06:52 04/17/17 06:52 04/17/17 06:52 04/17/17 06:52 04/17/17 06:52
== END 2017-04-17 13:31 | disposition home or self-care (01) ==
LOC: INPPIK 06:52 → EMEROOPIK 06:52 → INPPIK 09:20
PROVIDERS: ADMIT Internal Medicine; ATTEND Internal Medicine

== ENCOUNTER 2017-07-07 12:50 | Observation (INO) ==
--- NOTE | 2017-07-07 13:06 | Emergency Department Note ---
Disposition Clinical Impression: Hypothermia Qualifiers: Encounter type: initial encounter Qualified Code(s): T68.XXXA - Hypothermia, initial encounter Urinary tract infection Qualifiers: Urinary tract infection type: site unspecified Hematuria presence: without hematuria Qualified Code(s): N39.0 - Urinary tract infection, site not specified Disposition: Admitted As Inpatient Time of Disposition: 16:00 (Dr Pimentel) General Adult HPI - General Chief complaint: ED General Medical Stated complaint: LOW RECTAL TEMP Time Seen by Provider: 07/07/17 13:00 Source: EMS Mode of arrival: EMS Limitations: physical limitation Nursing Notes Reviewed: Yes Vital Signs Reviewed: Yes - History of Present Illness HPI Narrative: Patient presents from a longterm secondary to hypothermia decrease in her mentation. The patient has a history of recent inpatient evaluation secondary to urinary tract infection. Last time she was seen she presented as hypothermia and noted to potentially have sepsis. She was recently discharged from this hospital less than 2 weeks ago for similar complaint. The patient has decrease activity and by mouth intake. Onset (ago): unknown Improves with: nothing Worsens with: nothing Associated symptoms: Denies: diaphoresis, nausea/vomiting Treatments Prior to Arrival: heat therapy - Related Data Home Medications Medication Instructions Recorded Confirmed Atropine 1% Opth Drops 1 - 2 drp SL Q4-6H PRN 04/02/15 07/07/17 lamoTRIgine [Lamictal] 300 mg GTUBE QAM 04/02/15 07/07/17 Albuterol Neb [Proventil Neb] 2.5 mg IH Q4H PRN 05/05/15 07/07/17 DiphenhydraMINE [Benadryl] 25 mg GTUBE Q6HR PRN 02/17/16 07/07/17 Loperamide [Imodium] 2 mg PO DAILY PRN 02/17/16 07/07/17 Lovastatin [Mevacor] 20 mg GTUBE HS 02/17/16 07/07/17 Pseudoephedrine [Sudafed] 60 mg PO Q6H PRN 02/17/16 07/07/17 Medroxyprogesterone Acetate 150 mg IM [id number] 06/23/16 07/07/17 [Depo-Provera] Acetaminophen [Tylenol] 650 mg GTUBE Q4HR PRN 10/15/16 07/07/17 Docusate [Colace] 100 mg GTUBE BID 10/15/16 07/07/17 Mag Hydrox/Aluminum Hyd/Simeth 30 ml GTUBE Q4H PRN 10/15/16 07/07/17 [Cvs Antacid-[place] Liquid] Magnesium Hydroxide [Milk of 30 ml GTUBE Q72H PRN 10/15/16 07/07/17 Magnesia] Polyvinyl Alcohol [Artificial 1 drop OP DAILY 10/15/16 07/07/17 Tears] lamoTRIgine [Lamotrigine] 200 mg GTUBE QPM 10/17/16 07/07/17 Baclofen 20 mg GTUBE TID 11/10/16 07/07/17 Diazepam [Diastat Acudial] 1 each RC PRN PRN 11/10/16 07/07/17 Ibuprofen [Motrin] 400 mg PO Q4HR PRN 11/10/16 07/07/17 Polyethylene Glycol 3350 [Gavilax] 17 gm GTUBE QAM 11/10/16 07/07/17 Saliva Stimulant [Biotene 0 ml GTUBE Q8H 11/10/16 07/07/17 Moisturizing Rinse] Calcitonin,[place],Synthetic 200 units NS DAILY 04/15/17 07/07/17 [Calcitonin-[place]] Loratadine [Allergy Relief] 10 mg GTUBE DAILY 04/15/17 07/07/17 Previous Rx's Medication Instructions Recorded Cefixime [Suprax] 400 mg PO DAILY #150 mls 04/17/17 Lactobacillus [Culturelle] 1 each PO BID #30 cap.sprink 04/17/17 Allergies Allergy/AdvReac Type Severity Reaction Status Date / Time No Known Allergies Allergy Verified 05/05/15 20:33 All systems ED: reviewed and negative except as stated. Limitations: ROS unobtainable due to patients medical condition Past Medical History - Past Medical History Medical history: Reports: arthritis, GERD, hyperlipidemia, osteoporosis, seizures, other Surgical history: Reports: other Psychiatric history: Reports: no psych history CERTIFIED MEDICAL TRANSCRIPTIONIST history: Reports: no CERTIFIED MEDICAL TRANSCRIPTIONIST history - Social History Smoking Status: Never smoker Smokeless Tobacco Status: No Alcohol use: Reports: none Drug use: Reports: none Physical Exam - General Limitations: altered mental status, physical limitation General appearance: lethargic - Head Head exam: atraumatic - Eye Eye exam: Present: PERRL. Absent: scleral icterus, conjunctival injection, miosis, mydriasis, periorbital swelling - ENT ENT exam: mucous membranes moist - Neck Neck exam: Present: trachea midline. Absent: lymphadenopathy - Chest Chest inspection: Present: normal inspection - Respiratory Respiratory exam: Present: normal lung sounds bilaterally - Cardiovascular Cardiovascular exam: Present: bradycardia, normal heart sounds. Absent: JVD - Abdominal Exam Abdominal exam: Present: soft, normal bowel sounds - Extremities Exam Extremities exam: Present: tenderness, normal capillary refill. Absent: pedal edema - Expanded Lower Extremity Exam Hip/Pelvis exam: Present: tenderness. Absent: swelling, ecchymosis - Skin Skin exam: Present: dry, intact. Absent: rash, cyanosis, diaphoresis Course Vital Signs Temperature 91.8 F L 07/07/17 12:53 Pulse Rate 58 07/07/17 12:53 Respiratory Rate 21 07/07/17 12:53 Blood Pressure 90/60 07/07/17 12:53 O2 Sat by Pulse Oximetry 98 07/07/17 12:53 Temperature 98.3 F 07/09/17 07:11 Pulse Rate 73 07/09/17 07:11 Respiratory Rate 18 07/09/17 07:11 Blood Pressure 103/60 07/09/17 07:11 O2 Sat by Pulse Oximetry 97 07/09/17 07:11 Oxygen Delivery Oxygen Delivery Nasal Cannula Medical Decision Making - MDM Narrative Medical decision making narrative: Hemodynamically throughout the ED course. The patient does present with another urinary tract infection. Active external rewarming initiated in the ED. The patient's temperature gradually increased to 94 degrees Fahrenheit. She was started on antibiotics and will be admitted to the hospital for further stabilization and treatment after discussion with hospitalist. - Medical Records Medical records reviewed: Yes I reviewed the patient's medical records. - Lab Data Lab results reviewed: Yes I reviewed the patient's lab results. Result diagrams: 07/07/17 13:33 07/07/17 13:33 Lab Results 07/07/17 07/07/17 07/07/17 Range/Units 13:33 13:33 13:33 WBC 7.4 (4.3-11.1) K/mcL RBC 4.59 (3.82-4.97) M/mcL Hgb 14.6 (11.5-15.4) g/dL Hct 45.1 H (35.3-44.9) % MCV 98.3 (83.0-100.0) fL MCH 31.8 (28.0-33.3) pg MCHC 32.4 (31.6-35.5) g/dL RDW 15.9 H (11.5-14.5) % Plt Count 212 (140-400) K/mcL MPV 10.8 (9.4-12.4) fL Immature Gran % 0.1 (0-4) % Seg Neutrophils % 60.0 % Lymphocytes % 30.8 % Monocytes % 6.2 % Eosinophils % 2.2 % Basophils % 0.7 % Neutrophils # 4.5 (1.6-8.9) K/mcL Lymphocytes # 2.3 (0.6-4.6) K/mcL Monocytes # 0.5 (0.0-1.3) K/mcL Eosinophils # 0.2 (0.0-0.6) K/mcL Basophils # 0.1 (0.0-0.2) K/mcL Sodium 139 (136-145) mEq/L Potassium 3.9 (3.5-5.1) mEq/L Chloride 104 (98-107) mEq/L Carbon Dioxide 25 (23-29) mEq/L BUN 24 H (6-20) mg/dL Creatinine 0.77 (0.60-1.20) mg/dL Est GFR ( Amer) > 60 (> 60) Est GFR (Non-Af Amer) > 60 (> 60) BUN/Creatinine Ratio 31 H (6-26) Glucose 87 (70-105) mg/dL Calculated Osmolality 291 (280-300) Lactic Acid 1.3 (0.5-2.2) mmol/L Calcium 9.6 (8.6-10.3) mg/dL Magnesium (1.6-2.6) mg/dL Total Bilirubin 0.4 (0.3-1.0) mg/dL AST 22 (13-39) Units/L ALT 32 (7-52) Units/L Alkaline Phosphatase 191 H (34-104) Units/L Creatine Kinase 50 (30-223) Units/L Serum Total Protein 6.7 (6.4-8.9) g/dL Albumin 3.2 L (3.5-5.7) g/dL Globulin 3.5 (2.4-3.5) g/dL Albumin/Globulin Ratio 0.9 L (1.1-2.2) TSH 3.532 (0.340-5.600) mcIU/mL Urine Color (Yellow) Urine Clarity (Clear) Urine pH (5.0-8.0) pH Units Ur Specific [place] (1.010-1.025) Urine Protein (Neg-Trace) mg/dL Urine Glucose (UA) (Normal) mg/dL Urine Ketones (Negative) mg/dL Urine Blood (Negative) Urine Nitrite (Negative) Urine Bilirubin (Negative) Urine Urobilinogen (Normal) mg/dL Ur Leukocyte Esterase (Negative) Urine Microscopic RBC (0-3) per hpf Urine Microscopic WBC (0-3) per hpf Ur Squamous Epith Cells (None-Few) per lpf Urine Bacteria (None-Few) per hpf Hyaline Casts (None-Few) per lpf Granular Casts (None Seen) per lpf Ur Culture Indicated? (NO) 07/07/17 07/07/17 Range/Units 13:34 14:15 WBC (4.3-11.1) K/mcL RBC (3.82-4.97) M/mcL Hgb (11.5-15.4) g/dL Hct (35.3-44.9) % MCV (83.0-100.0) fL MCH (28.0-33.3) pg MCHC (31.6-35.5) g/dL RDW (11.5-14.5) % Plt Count (140-400) K/mcL MPV (9.4-12.4) fL Immature Gran % (0-4) % Seg Neutrophils % % Lymphocytes % % Monocytes % % Eosinophils % % Basophils % % Neutrophils # (1.6-8.9) K/mcL Lymphocytes # (0.6-4.6) K/mcL Monocytes # (0.0-1.3) K/mcL Eosinophils # (0.0-0.6) K/mcL Basophils # (0.0-0.2) K/mcL Sodium (136-145) mEq/L Potassium (3.5-5.1) mEq/L Chloride (98-107) mEq/L Carbon Dioxide (23-29) mEq/L BUN (6-20) mg/dL Creatinine (0.60-1.20) mg/dL Est GFR ( Amer) (> 60) Est GFR (Non-Af Amer) (> 60) BUN/Creatinine Ratio (6-26) Glucose (70-105) mg/dL Calculated Osmolality (280-300) Lactic Acid (0.5-2.2) mmol/L Calcium (8.6-10.3) mg/dL Magnesium 2.4 (1.6-2.6) mg/dL Total Bilirubin (0.3-1.0) mg/dL AST (13-39) Units/L ALT (7-52) Units/L Alkaline Phosphatase (34-104) Units/L Creatine Kinase (30-223) Units/L Serum Total Protein (6.4-8.9) g/dL Albumin (3.5-5.7) g/dL Globulin (2.4-3.5) g/dL Albumin/Globulin Ratio (1.1-2.2) TSH (0.340-5.600) mcIU/mL Urine Color Yellow (Yellow) Urine Clarity Cloudy A (Clear) Urine pH 7.5 (5.0-8.0) pH Units Ur Specific [place] 1.015 (1.010-1.025) Urine Protein Negative (Neg-Trace) mg/dL Urine Glucose (UA) Normal (Normal) mg/dL Urine Ketones Negative (Negative) mg/dL Urine Blood Trace-intact H (Negative) Urine Nitrite Negative (Negative) Urine Bilirubin Negative (Negative) Urine Urobilinogen Normal (Normal) mg/dL Ur Leukocyte Esterase Moderate H (Negative) Urine Microscopic RBC 0-3 (0-3) per hpf Urine Microscopic WBC 5-15 H (0-3) per hpf Ur Squamous Epith Cells Few (None-Few) per lpf Urine Bacteria Many H (None-Few) per hpf Hyaline Casts Few (None-Few) per lpf Granular Casts Moderate H (None Seen) per lpf Ur Culture Indicated? YES A (NO) - EKG Data EKG #1 Rate: bradycardia Rhythm: NSR [place]/QRS: normal Interpretation: normal EKG, nonspecific ST-T wave changes
[2017-07-07 13:40] LABS: Basophils # 0.1 K/mcL (0.0-0.2); Basophils % 0.7 %; Eosinophils # 0.2 K/mcL (0.0-0.6); Eosinophils % 2.2 %; Hematocrit 45.1 % (35.3-44.9); Hemoglobin 14.6 g/dL (11.5-15.4); Immature Granulocytes % 0.1 % (0-4); Lymphocytes # 2.3 K/mcL (0.6-4.6); Lymphocytes % 30.8 %; Mean Corpuscular HGB Conc 32.4 g/dL (31.6-35.5); Mean Corpuscular Hemoglobin 31.8 pg (28.0-33.3); Mean Corpuscular Volume 98.3 fL (83.0-100.0); Mean Platelet Volume 10.8 fL (9.4-12.4); Monocytes # 0.5 K/mcL (0.0-1.3); Monocytes % 6.2 %; Neutrophils # 4.5 K/mcL (1.6-8.9); Platelet Count 212 K/mcL (140-400); Red Blood Count 4.59 M/mcL (3.82-4.97); Red Cell Distribution Width 15.9 % (11.5-14.5)
[2017-07-07 14:01] LABS: Alanine Aminotransferase 32 Units/L (7-52); Albumin 3.2 g/dL (3.5-5.7); Albumin/Globulin Ratio 0.9 (1.1-2.2); Alkaline Phosphatase 191 Units/L (34-104); Aspartate Amino Transferase 22 Units/L (13-39); BUN/Creatinine Ratio 31 (6-26); Bilirubin,Total 0.4 mg/dL (0.3-1.0); Blood Urea Nitrogen 24 mg/dL (6-20); Calcium 9.6 mg/dL (8.6-10.3); Carbon Dioxide 25 mEq/L (23-29); Chloride 104 mEq/L (98-107); Creatine Kinase 50 Units/L (30-223); Globulin 3.5 g/dL (2.4-3.5); Glucose 87 mg/dL (70-105); Osmolality,Calculated 291 (280-300); Potassium 3.9 mEq/L (3.5-5.1); Sodium 139 mEq/L (136-145); Total Protein 6.7 g/dL (6.4-8.9); eGFR For Non-African Americans > 60 (> 60)
[2017-07-07 14:22] LABS: Bilirubin,Urine Negative (Negative); Blood,Urine Trace-intact (Negative); Clarity,Urine Cloudy (Clear); Color,Urine Yellow (Yellow); Glucose,Urine (UA) Normal (Normal); Ketones,Urine Negative (Negative); Leukocyte Esterase,Urine Moderate (Negative); Nitrite,Urine Negative (Negative); PH,Urine 7.5 pH Units (5.0-8.0); Protein,Urine Negative (Neg-Trace); Specific Gravity,Urine 1.015 (1.010-1.025); Urobilinogen,Urine Normal (Normal)
[2017-07-07 14:25] LABS: Thyroid Stimulating Hormone 3.532 mcIU/mL (0.340-5.600)
[2017-07-07 14:51] LABS: Bacteria,Urine Many per hpf (None-Few); Granular Casts,Urine Moderate per lpf (None Seen); Hyaline Casts,Urine Few per lpf (None-Few); RBC,Urine 0-3 per hpf (0-3); Squamous Epithelial Cell,Urine Few per lpf (None-Few)
--- NOTE | 2017-07-07 17:33 | Electrocardiograph Report ---
[address] [place], [place] [address] Test Date: 2017-07-07 Pat Name: Jeannine Noel Department: [id number] Room: [facility] Gender: F Dioramist: [id number] : 1975 Requested By: Onofre Yip Order Number: [id number] Reading MD: René Miner DO Measurements Intervals [place] Rate: 58 P: 236 CT: 132 QRS: 69 QRSD: 114 T: 58 QT: 432 QTc: 429 Interpretive Statements SINUS BRADYCARDIA Electronically Signed On 07-07-2017 17:32:10 EST by René Miner DO
[2017-07-07] MEDS ORDERED: MOM Conc 10 ML UD.LIQ GTUBE PRN (18:07)
[2017-07-07] MEDS ORDERED: Albuterol 2.5 MG/3 ML NEBULIZER IH PRN (18:07)
[2017-07-07] MEDS ORDERED: Mag Hydrox/Al Hydrox/Simeth 30 ML UDC GTUBE PRN (18:07)
[2017-07-07] MEDS ORDERED: Ibuprofen 400 MG TABLET PO PRN (18:07)
[2017-07-07] MEDS ORDERED: Acetaminophen 325 MG TABLET PO PRN (18:07)
[2017-07-07] MEDS ORDERED: DIAZEPAM RC PRN (18:07)
[2017-07-07] MEDS ORDERED: Naloxone 0.4 MG/ML INJ IVP PRN (18:07)
[2017-07-07] MEDS ORDERED: diazePAM 2 MG TABLET GTUBE PRN (18:35)
[2017-07-07] MEDS: lamoTRIgine 100 MG TABLET GTUBE SCH (19:36)
[2017-07-07] MEDS: 0.9 % Sodium Chloride 1,000 ML IVC SCH (19:37)
[2017-07-07] MEDS: Baclofen 10 MG TABLET GTUBE SCH (23:09)
[2017-07-07] MEDS: Lactobacillus 1 EACH CAP.SPRINK PO SCH (23:09)
[2017-07-07] MEDS: Docusate Oral Soln 100 MG/10 ML UDC GTUBE SCH (23:10)
[2017-07-08] MEDS ORDERED: Loratadine 10 MG TABLET GTUBE SCH (09:00)
[2017-07-08] MEDS: Artificial Tears SOLN 15 ML BOTTLE OP SCH (10:21)
[2017-07-08] MEDS: Docusate Oral Soln 100 MG/10 ML UDC GTUBE SCH ×2 (10:21→20:58)
[2017-07-08] MEDS: Baclofen 10 MG TABLET GTUBE SCH ×4 (10:21→21:36)
[2017-07-08] MEDS: lamoTRIgine 100 MG TABLET GTUBE SCH ×2 (10:21→18:36)
[2017-07-08] MEDS: Lactobacillus 1 EACH CAP.SPRINK PO SCH ×2 (10:21→20:58)
[2017-07-08] MEDS: CALCITONIN SALMON SYNTHETIC NS SCH (10:22)
--- NOTE | 2017-07-08 17:54 | Internal Med History&Physical ---
Date of Encounter: 07/08/17 Time of Encounter: 17:30 Assessment and Plan (1) Hypothermia Current visit: Yes Status: Acute Now resolved. We will continue to monitor temperature and other vital signs. Qualifiers: Encounter type: initial encounter Qualified Code(s): T68.XXXA - Hypothermia , initial encounter (2) Urinary tract infection Current visit: Yes Status: Acute She was started empirically on Rocephin. We will continue this with lactobacillus. Qualifiers: Urinary tract infection type: site unspecified Hematuria presence: without hematuria Qualified Code(s): N39.0 - Urinary tract infection, site not specified Internal Medicine - H&P: HPI Chief complaint: Hypothermic Admitted From: Emergency Dept Plans for Post Hospital Care: Home History of present illness: Ms. Noel is a 41 year old female who was brought to the emergency room after staff at the [facility] reported her to have hypothermia. Her initial temperature in emergency room was 91.8 F. She was felt to have possible UTI. She was admitted to [facility] floor for ongoing care needs. 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 She was hospitalized at [facility] in July and March 2017 for similar problems. Nursing staff contacted [facility] and learned she had been treated with Omnicef 250 mg daily for the 2 days prior to coming to emergency room. Past Med Surg Social Fam HX - Past Medical History Medical history: arthritis, GERD, hyperlipidemia, osteoporosis, seizures, other Psychiatric history: no psych history - Past Surgical History Surgical History: other - Social History Smoking Status: Never smoker Smokeless Tobacco Status: No Alcohol use: none Drug use: none Internal Medicine - H&P: Meds Atropine 1% Opth Drops 1 - 2 drp SL Q4-6H PRN 04/02/15 [History] lamoTRIgine [Lamictal] 300 mg GTUBE QAM 04/02/15 [History] Albuterol Neb [Proventil Neb] 2.5 mg IH Q4H PRN 05/05/15 [History] DiphenhydraMINE [Benadryl] 25 mg GTUBE Q6HR PRN 02/17/16 [History] Loperamide [Imodium] 2 mg PO DAILY PRN 02/17/16 [History] Lovastatin [Mevacor] 20 mg GTUBE HS 02/17/16 [History] Pseudoephedrine [Sudafed] 60 mg PO Q6H PRN 02/17/16 [History] Medroxyprogesterone Acetate [Depo-Provera] 150 mg IM [id number] 06/23/16 [History] Acetaminophen [Tylenol] 650 mg GTUBE Q4HR PRN 10/15/16 [History] Docusate [Colace] 100 mg GTUBE BID 10/15/16 [History] Mag Hydrox/Aluminum Hyd/Simeth [Cvs Antacid-[place] Liquid] 30 ml GTUBE Q4H PRN 10/15/16 [History] Magnesium Hydroxide [Milk of Magnesia] 30 ml GTUBE Q72H PRN 10/15/16 [History] Polyvinyl Alcohol [Artificial Tears] 1 drop OP DAILY 10/15/16 [History] lamoTRIgine [Lamotrigine] 200 mg GTUBE QPM 10/17/16 [History] Baclofen 20 mg GTUBE TID 11/10/16 [History] Diazepam [Diastat Acudial] 1 each RC PRN PRN 11/10/16 [History] Ibuprofen [Motrin] 400 mg PO Q4HR PRN 11/10/16 [History] Polyethylene Glycol 3350 [Gavilax] 17 gm GTUBE QAM 11/10/16 [History] Saliva Stimulant [Biotene Moisturizing Rinse] 0 ml GTUBE Q8H 11/10/16 [History] Calcitonin,[place],Synthetic [Calcitonin-[place]] 200 units NS DAILY 04/15/17 [ History] Loratadine [Allergy Relief] 10 mg GTUBE DAILY 04/15/17 [History] Cefixime [Suprax] 400 mg PO DAILY #150 mls 04/17/17 [Rx] Lactobacillus [Culturelle] 1 each PO BID #30 cap.sprink 04/17/17 [Rx] 3 Allergy/AdvReac Type Severity Reaction Status Date / Time No Known Allergies Allergy Verified 05/05/15 20:33 All Systems PM: A 10-system review of systems was performed and is negative for pertinent findings except as documented above in the HPI. Review of systems: Review of systems from the March 2017 [facility] hospitalization were reviewed and revised as below. Gen.: Her weight has increased from 44.18 kg at discharge April 2015 to 45.359 kg now. Cardiovascular: There is no known hypertension heart failure angina DVT or pulmonary embolus Respiratory: Smoking history is not known. She does not have documented chronic lung disease in available records. GI: She has GERD by history. There is no known disorder of her liver gallbladder or exocrine pancreas. She had fecal impaction requiring disimpaction during her April 2015 hospitalization. : There is no mention of hematuria dysuria or kidney stones. She has had frequent UTIs. She had urinary retention during a previous hospitalization requiring Cheek catheter insertion briefly. Endocrine: There is no known diabetes thyroid disease or hyperlipidemia Hematology/oncology: She has a history of anemia that has resolved. She does not have other known blood disorders or internal malignancies Neurologic: She has a diagnoses of seizure disorder, encephalopathy, cortical blindness, and optic atrophy. Psychiatric: She has no known anxiety depression or other mental health issues Musculoskeletal: She has had fractures of the right radius, right tibia, right humeral head, and left humerus neck. 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 - Constitutional Vitals: Temp Pulse Resp BP Pulse Ox 98.3 F 94 17 118/72 100 07/08/17 15:41 07/08/17 15:41 07/08/17 15:41 07/08/17 15:41 07/08/17 15:41 Exam: Gen.: She is a well-nourished female lying in bed who appears in no acute distress. HEENT: Is atraumatic and normocephalic. Eyes: She has a conjugate gaze but does not focus when spoken to. There is no scleral icterus. Mouth: She has moist mucosa despite mouth breathing at times. Neck: Supple and nontender. There is no thyromegaly or adenopathy noted. Heart: Regular without murmurs gallops or ectopics Lungs: No wheezes or crackles are heard. Abdomen: Soft and nontender. No masses or guarding are noted. G-tube is in place in the left epigastric area. Extremities: She has deformities of her feet. She has atrophy of her arms and leg muscles. Neurologic: Mental status: She is nonverbal and does not follow commands. Cranial nerves: She has a conjugate gaze and has roving eye movements. She does not move her face or head spontaneously. Motor: She holds her arms in a decorticate position. She does not move her arms or legs spontaneously. No further neurologic testing is attempted. Skin: Warm and dry Internal Med - H&P Results - Labs CBC & Chem 7: 07/07/17 13:33 07/07/17 13:33
[2017-07-08] MEDS: 0.9 % Sodium Chloride 1,000 ML IVC SCH (19:13)
[2017-07-09] MEDS: Lactobacillus 1 EACH CAP.SPRINK PO SCH ×2 (09:05→19:52)
[2017-07-09] MEDS: Docusate Oral Soln 100 MG/10 ML UDC GTUBE SCH ×2 (09:05→19:52)
[2017-07-09] MEDS: lamoTRIgine 100 MG TABLET GTUBE SCH ×2 (09:05→19:52)
[2017-07-09] MEDS: Baclofen 10 MG TABLET GTUBE SCH ×3 (09:05→19:53)
[2017-07-09] MEDS: CALCITONIN SALMON SYNTHETIC NS SCH (09:06)
--- NOTE | 2017-07-09 11:08 | Internal Med Progress Note ---
Date of Encounter: 07/09/17 Time of Encounter: 10:55 - Assessment and plan (1) Hypothermia Current Visit: Yes Status: Acute Assessment and plan: July 09. Continue to monitor temperature and treat for possible pneumonia. Qualifiers: Encounter type: initial encounter Qualified Code(s): T68.XXXA - Hypothermia , initial encounter (2) Urinary tract infection Current Visit: Yes Status: Acute Assessment and plan: July 09. Continue Rocephin for pneumonia. Qualifiers: Urinary tract infection type: site unspecified Hematuria presence: without hematuria Qualified Code(s): N39.0 - Urinary tract infection, site not specified (3) Pneumonia Current Visit: Yes Status: Acute Assessment and plan: July 09. Continue Rocephin and add Zithromax. Recheck labs in a.m. Qualifiers: Pneumonia type: due to unspecified organism Laterality: right Lung location: middle lobe of lung Qualified Code(s): J18.1 - Lobar pneumonia, unspecified organism - Subjective Interval history: July 09. No new problems have arisen. She has had some recurrent hypothermia. - Constitutional Vitals: Temp Pulse Resp BP Pulse Ox 98.3 F 73 18 103/60 97 07/09/17 07:11 07/09/17 07:11 07/09/17 07:11 07/09/17 07:11 07/09/17 07:11 Exam: She is resting comfortably in bed and appears in no acute distress. Her lungs show some scattered rhonchi. Heart is regular without murmurs gallops or ectopics. I reviewed her medications and vital signs. Urine cultures return showing no growth. Internal Medicine: Result - Labs CBC & Chem 7: 07/07/17 13:33 07/07/17 13:33 Consult Discharge Plan - Plan Referrals: Nadira Glynn MD [Primary Care Provider] - 1 week
[2017-07-09] MEDS: Artificial Tears SOLN 15 ML BOTTLE OP SCH (11:30)
[2017-07-09] MEDS ORDERED: Azithromycin 500 MG in D5% in Water 250 ML IVPB SCH (12:00)
[2017-07-09] MEDS ORDERED: cefTRIAXone 1,000 MG in Water for inj. (sterile) 20 ML 20 ML IVPB SCH (15:00)
[2017-07-09] MEDS ORDERED: Levofloxacin 500 MG/100 ML 500 MG/100 ML BAG IVPB SCH (18:00)
[2017-07-10 06:13] LABS: Basophils % 0.5 %; Eosinophils # 0.2 K/mcL (0.0-0.6); Eosinophils % 2.7 %; Hematocrit 42.4 % (35.3-44.9); Hemoglobin 14.2 g/dL (11.5-15.4); Immature Granulocytes % 0.1 % (0-4); Lymphocytes # 2.8 K/mcL (0.6-4.6); Lymphocytes % 36.5 %; Mean Corpuscular HGB Conc 33.5 g/dL (31.6-35.5); Mean Corpuscular Hemoglobin 31.6 pg (28.0-33.3); Mean Corpuscular Volume 94.4 fL (83.0-100.0); Mean Platelet Volume 11.1 fL (9.4-12.4); Monocytes # 0.5 K/mcL (0.0-1.3); Monocytes % 6.5 %; Neutrophils # 4.1 K/mcL (1.6-8.9); Platelet Count 258 K/mcL (140-400); Red Blood Count 4.49 M/mcL (3.82-4.97); Red Cell Distribution Width 15.5 % (11.5-14.5); Segmented Neutrophils % 53.7 %
[2017-07-10 06:34] LABS: BUN/Creatinine Ratio 32 (6-26); Blood Urea Nitrogen 25 mg/dL (6-20); Calcium 9.4 mg/dL (8.6-10.3); Carbon Dioxide 26 mEq/L (23-29); Chloride 108 mEq/L (98-107); Glucose 70 mg/dL (70-105); Osmolality,Calculated 297 (280-300); Potassium 4.1 mEq/L (3.5-5.1); Sodium 142 mEq/L (136-145); eGFR For Non-African Americans > 60 (> 60)
[2017-07-10 06:47] VITALS: BP 112/73
[2017-07-10] MEDS: Docusate Oral Soln 100 MG/10 ML UDC GTUBE SCH (09:35)
[2017-07-10] MEDS: Baclofen 10 MG TABLET GTUBE SCH (09:36)
[2017-07-10] MEDS: lamoTRIgine 100 MG TABLET GTUBE SCH (09:36)
[2017-07-10] MEDS: Lactobacillus 1 EACH CAP.SPRINK PO SCH (09:36)
[2017-07-10] MEDS: Artificial Tears SOLN 15 ML BOTTLE OP SCH (09:47)
--- NOTE | 2017-07-10 10:06 | Discharge Summary ---
Date of Encounter: 07/10/17 Time of Encounter: 09:58 - Discharge Diagnosis (1) Hypothermia Priority: Primary Status: Acute Qualifiers: Encounter type: initial encounter Qualified Code(s): T68.XXXA - Hypothermia , initial encounter (2) Urinary tract infection Priority: Secondary Status: Resolved Qualifiers: Urinary tract infection type: site unspecified Hematuria presence: without hematuria Qualified Code(s): N39.0 - Urinary tract infection, site not specified (3) Pneumonia Priority: Secondary Status: Acute Qualifiers: Pneumonia type: due to unspecified organism Laterality: right Lung location: middle lobe of lung Qualified Code(s): J18.1 - Lobar pneumonia, unspecified organism - Discharge Medications Prescriptions: levoFLOXacin [Levaquin] 500 mg GTUBE DAILY #3 tablet Home Medications: Atropine 1% Opth Drops 1 - 2 drp SL Q4-6H PRN 04/02/15 [History] lamoTRIgine [Lamictal] 300 mg GTUBE QAM 04/02/15 [History] Albuterol Neb [Proventil Neb] 2.5 mg IH Q4H PRN 05/05/15 [History] DiphenhydraMINE [Benadryl] 25 mg GTUBE Q6HR PRN 02/17/16 [History] Loperamide [Imodium] 2 mg PO DAILY PRN 02/17/16 [History] Lovastatin [Mevacor] 20 mg GTUBE HS 02/17/16 [History] Pseudoephedrine [Sudafed] 60 mg PO Q6H PRN 02/17/16 [History] Medroxyprogesterone Acetate [Depo-Provera] 150 mg IM [id number] 06/23/16 [History] Acetaminophen [Tylenol] 650 mg GTUBE Q4HR PRN 10/15/16 [History] Docusate [Colace] 100 mg GTUBE BID 10/15/16 [History] Mag Hydrox/Aluminum Hyd/Simeth [Cvs Antacid-[place] Liquid] 30 ml GTUBE Q4H PRN 10/15/16 [History] Magnesium Hydroxide [Milk of Magnesia] 30 ml GTUBE Q72H PRN 10/15/16 [History] Polyvinyl Alcohol [Artificial Tears] 1 drop OP DAILY 10/15/16 [History] lamoTRIgine [Lamotrigine] 200 mg GTUBE QPM 10/17/16 [History] Diazepam [Diastat Acudial] 1 each RC PRN PRN 11/10/16 [History] Ibuprofen [Motrin] 400 mg PO Q4HR PRN 11/10/16 [History] Polyethylene Glycol 3350 [Gavilax] 17 gm GTUBE QAM 11/10/16 [History] Saliva Stimulant [Biotene Moisturizing Rinse] 0 ml GTUBE Q8H 11/10/16 [History] Calcitonin,[place],Synthetic [Calcitonin-[place]] 200 units NS DAILY 04/15/17 [ History] Loratadine [Allergy Relief] 10 mg GTUBE DAILY 04/15/17 [History] Cefixime [Suprax] 400 mg PO DAILY #150 mls 04/17/17 [Rx] Lactobacillus [Culturelle] 1 each PO BID #30 cap.sprink 04/17/17 [Rx] Baclofen [Lioresal] 10 mg GTUBE TID tablet 07/10/17 [Rx] levoFLOXacin [Levaquin] 500 mg GTUBE DAILY #3 tablet 07/10/17 [Rx] Allergies/Adverse Reactions: 3 Allergy/AdvReac Type Severity Reaction Status Date / Time No Known Allergies Allergy Verified 05/05/15 20:33 Date of admission: 07/07/17 16:36 Primary care physician: Nadira Glynn Consults: 07/07/17 18:48 Consult to Bureau Director [CONS] Routine Reason for SW Consult: Discharge planning - Patient Status Disposition: Home, Self-Care Overall status at discharge: patient is progressing back to baseline - Discharge Instructions Follow Up With: Nadira Glynn MD [Primary Care Provider] - 1 week - Diet and Activity Activity: resume usual activities as tolerated Diet: advance to your usual diet Hospital course: Ms. Noel is a 41 year old female who was brought to the emergency room after staff at the assisted reported her to have hypothermia. Her initial temperature in emergency room was 91.8 F. She was felt to have possible UTI. She was admitted to [facility] floor for ongoing care needs. Initial orders were written by the emergency room physician. I saw her on July 08 and performed the history and physical. She was started on Rocephin empirically for possible UTI. Urine culture returned showing no growth. Urine culture from July 05 was reviewed showing Proteus mirabilis. She was changed to Levaquin on July 09 and this will be continued for 3 days after discharge for possible pneumonia. Temperature remained stable and on July 10 I felt she was stable for discharge back to the assisted where she will follow with Dr. Glynn. - Time Spent with Patient Total time spent providing and/or coordinating discharge services: - Constitutional Vitals: Temp Pulse Resp BP Pulse Ox 97.0 F L 72 17 112/73 95 07/10/17 06:46 07/10/17 06:46 07/10/17 06:46 07/10/17 06:46 07/10/17 06:46
== END 2017-07-10 12:10 | disposition home or self-care (01) ==
LOC: EMEROOPIK 12:50 → INPPIK 12:50
PROVIDERS: ADMIT Internal Medicine; ATTEND Internal Medicine

== ENCOUNTER 2018-07-12 08:50 | Inpatient (IN) ==
--- NOTE | 2018-07-12 09:32 | Emergency Department Note ---
Disposition Clinical Impression: Hypothermia, UTI (urinary tract infection), Seizure Disposition: Admitted As Inpatient Condition: Fair Referrals: Nadira Glynn MD [Primary Care Provider] - Forms: ED Satisfaction Letter, Work/School Release Time of Disposition: 11:06 Altered Mental Status HPI - General Chief Complaint: ED General Medical Stated Complaint: Period of Unresponsive Time Seen by Provider: 07/12/18 08:56 Source: EMS, other (Care facility) Mode of arrival: EMS Limitations: language barrier, altered mental status, physical limitation Nursing Notes Reviewed: Yes Vital Signs Reviewed: Yes - History of Present Illness HPI Narrative: 43-year-old female [facility] [place] [facility] she [facility] e apparently was found unresponsive with a temperature of 92.8 at the facility for evaluation no witnessed seizure activity but has a history of seizures has history of prior presentation like this in the past. 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 Timing confirmed by: caregiver Pain Severity: unable Context: seizure disorder - Related Data Home Medications Medication Instructions Recorded Confirmed Atropine 1% Opth Drops 1 - 2 drp SL Q4-6H PRN 04/02/15 02/28/18 lamoTRIgine [Lamictal] 300 mg GTUBE QAM 04/02/15 02/28/18 Albuterol Neb [Proventil Neb] 2.5 mg IH Q4H PRN 05/05/15 02/28/18 DiphenhydraMINE [Benadryl] 25 mg GTUBE Q6HR PRN 02/17/16 02/28/18 Loperamide [Imodium] 2 mg PO DAILY PRN 02/17/16 02/28/18 Lovastatin [Mevacor] 20 mg GTUBE HS 02/17/16 02/28/18 Pseudoephedrine [Sudafed] 60 mg PO Q6H PRN 02/17/16 02/28/18 Medroxyprogesterone Acetate 150 mg IM [id number] 06/23/16 02/28/18 [Depo-Provera] Acetaminophen [Tylenol] 650 mg GTUBE Q4HR PRN 10/15/16 02/28/18 Docusate [Colace] 100 mg GTUBE BID 10/15/16 02/28/18 Magnesium Hydroxide [Milk of 30 ml GTUBE Q72H PRN 10/15/16 02/28/18 Magnesia] Polyvinyl Alcohol [Artificial 1 drop OP DAILY 10/15/16 02/28/18 Tears] lamoTRIgine [Lamotrigine] 200 mg GTUBE QPM 10/17/16 02/28/18 Diazepam [Diastat Acudial] 1 each RC PRN PRN 11/10/16 02/28/18 Ibuprofen [Motrin] 400 mg PO Q4HR PRN 11/10/16 02/28/18 Polyethylene Glycol 3350 [Gavilax] 17 gm GTUBE QAM 11/10/16 02/28/18 Saliva Stimulant [Biotene 0 ml GTUBE Q8H 11/10/16 02/28/18 Moisturizing Rinse] Calcitonin,[place],Synthetic 200 units NS DAILY 04/15/17 02/28/18 [Calcitonin-[place]] Loratadine [Allergy Relief] 10 mg GTUBE DAILY 04/15/17 02/28/18 Baclofen [Lioresal] 20 mg GTUBE TID 07/17/17 02/28/18 Multivit/Ca/Min/Fe/FA [Thera M 1 each PO DAILY 02/28/18 02/28/18 Plus] Previous Rx's Medication Instructions Recorded Rivaroxaban [Xarelto] 15 mg PO BID 21 Days #42 tablet 02/28/18 Allergies Allergy/AdvReac Type Severity Reaction Status Date / Time No Known Allergies Allergy Verified 02/28/18 13:56 Limitations: ROS unobtainable due to patients medical condition (Information provided by care facility) Past Medical History - Past Medical History PMFSH Narrative: Unable to validate information with the patient because of being nonverbal Source: old records reviewed, nursing notes reviewed Medical history: Reports: arthritis, GERD, hyperlipidemia, osteoporosis, seizures, other Surgical history: Reports: other Psychiatric history: Reports: no psych history OFFICE RENTAL CLERK history: Reports: no OFFICE RENTAL CLERK history - Social History Smoking Status: Never smoker Smokeless Tobacco Status: No Alcohol use: Reports: none Drug use: Reports: none Physical Exam - General Limitations: no limitations General appearance: alert, in no apparent distress, anxious - Head Head exam: atraumatic, normocephalic, normal inspection - Eye Eye exam: Present: normal appearance, PERRL, EOMI - ENT ENT exam: normal exam, normal oropharynx, mucous membranes moist, TM's normal bilaterally, normal external ear exam - Neck Neck exam: Present: normal inspection, full ROM, trachea midline - Chest Chest inspection: Present: normal inspection, symmetric chest wall rise - Respiratory Respiratory exam: Present: normal lung sounds bilaterally - Cardiovascular Cardiovascular exam: Present: regular rate, normal rhythm, normal heart sounds - Abdominal Exam Abdominal exam: Present: soft, Non-Tender, normal bowel sounds - Extremities Exam Extremities exam: Present: other (Contractures of the upper extremities and some slight contraction of the lower extremities mentation looks around but is nonverbal) - Expanded Lower Extremity Exam Neurovascular/Tendon exam: Present: normal capillary refill Gait: not tested/not observed - Back Exam Back exam: Present: normal inspection - Neurological Exam Neurological exam: Present: other (Nonverbal) - Psychiatric Psychiatric exam: Present: other (Nonverbal) - Skin Skin exam: Present: warm, dry, intact, normal color Course Course Narrative: Patient was seen and examined laboratory data was done as well as a chest x-ray urinalysis with results haven't been obtained she was started on IV antibiotics he was admitted services Dr. Pimentel she has been alert at her baseline in here transferred to [facility] for further IV antibiotics Vital Signs Temperature 95.0 F L 07/12/18 08:56 Pulse Rate 51 07/12/18 08:56 Respiratory Rate 20 07/12/18 08:56 Blood Pressure 170/110 07/12/18 08:56 O2 Sat by Pulse Oximetry 97 07/12/18 08:56 Temperature 91.8 F L 07/12/18 10:14 Pulse Rate 74 07/12/18 10:49 Respiratory Rate 18 07/12/18 10:49 Blood Pressure 149/102 07/12/18 10:49 O2 Sat by Pulse Oximetry 94 07/12/18 10:49 Oxygen Delivery Oxygen Delivery Room Air Altered Mental Status - Differential Diagnosis Likely: altered mental status, sepsis - Medical Records Medical records reviewed: Yes I reviewed the patient's medical records. - Lab Data Lab results reviewed: Yes I reviewed the patient's lab results. Result diagrams: 07/12/18 10:00 07/12/18 10:00 Lab Results 07/12/18 07/12/18 07/12/18 Range/Units 09:30 10:00 10:00 WBC 6.0 (4.3-11.1) K/mcL RBC 4.44 (3.82-4.97) M/mcL Hgb 14.6 (11.5-15.4) g/dL Hct 44.1 (35.3-44.9) % MCV 99.3 (83.0-100.0) fL MCH 32.9 (28.0-33.3) pg MCHC 33.1 (31.6-35.5) g/dL RDW 15.9 H (11.5-14.5) % Plt Count 222 (140-400) K/mcL MPV 10.5 (9.4-12.4) fL Immature Gran % 0.0 (0-4) % Seg Neutrophils % 29.4 % Lymphocytes % 60.5 % Monocytes % 6.2 % Eosinophils % 3.2 % Basophils % 0.7 % Neutrophils # 1.8 (1.6-8.9) K/mcL Lymphocytes # 3.6 (0.6-4.6) K/mcL Monocytes # 0.4 (0.0-1.3) K/mcL Eosinophils # 0.2 (0.0-0.6) K/mcL Basophils # 0.0 (0.0-0.2) K/mcL PT (9.4-12.1) Seconds INR APTT 50.7 H (26.0-36.0) Seconds Sodium (136-145) mEq/L Potassium (3.5-5.1) mEq/L Chloride (98-107) mEq/L Carbon Dioxide (23-29) mEq/L BUN (6-20) mg/dL Creatinine (0.60-1.20) mg/dL Est GFR ( Amer) (> 60) Est GFR (Non-Af Amer) (> 60) BUN/Creatinine Ratio (6-26) Glucose (70-105) mg/dL Calculated Osmolality (280-300) Lactic Acid (0.5-2.2) mmol/L Calcium (8.6-10.3) mg/dL Total Bilirubin (0.3-1.0) mg/dL AST (13-39) Units/L ALT (7-52) Units/L Alkaline Phosphatase (34-104) Units/L Serum Total Protein (6.4-8.9) g/dL Albumin (3.5-5.7) g/dL Globulin (2.4-3.5) g/dL Albumin/Globulin Ratio (1.1-2.2) TSH (0.340-5.600) mcIU/mL Urine Color Yellow (Yellow) Urine Clarity Clear (Clear) Urine pH 7.5 (5.0-8.0) pH Units Ur Specific [place] 1.015 (1.010-1.025) Urine Protein Negative (Neg-Trace) mg/dL Urine Glucose (UA) Normal (Normal) mg/dL Urine Ketones Negative (Negative) mg/dL Urine Blood Trace-intact H (Negative) Urine Nitrite Negative (Negative) Urine Bilirubin Negative (Negative) Urine Urobilinogen Normal (Normal) mg/dL Ur Leukocyte Esterase Small H (Negative) Urine Microscopic RBC 3-5 H (0-3) per hpf Urine Microscopic WBC 0-3 (0-3) per hpf Ur Squamous Epith Cells Few (None-Few) per lpf Urine Bacteria Moderate H (None-Few) per hpf Ur Culture Indicated? YES A (NO) 07/12/18 07/12/18 07/12/18 Range/Units 10:00 10:00 10:00 WBC (4.3-11.1) K/mcL RBC (3.82-4.97) M/mcL Hgb (11.5-15.4) g/dL Hct (35.3-44.9) % MCV (83.0-100.0) fL MCH (28.0-33.3) pg MCHC (31.6-35.5) g/dL RDW (11.5-14.5) % Plt Count (140-400) K/mcL MPV (9.4-12.4) fL Immature Gran % (0-4) % Seg Neutrophils % % Lymphocytes % % Monocytes % % Eosinophils % % Basophils % % Neutrophils # (1.6-8.9) K/mcL Lymphocytes # (0.6-4.6) K/mcL Monocytes # (0.0-1.3) K/mcL Eosinophils # (0.0-0.6) K/mcL Basophils # (0.0-0.2) K/mcL PT 11.8 (9.4-12.1) Seconds INR 1.0 APTT (26.0-36.0) Seconds Sodium 141 (136-145) mEq/L Potassium 3.9 (3.5-5.1) mEq/L Chloride 105 (98-107) mEq/L Carbon Dioxide 29 (23-29) mEq/L BUN 33 H (6-20) mg/dL Creatinine 1.30 H (0.60-1.20) mg/dL Est GFR ( Amer) 54 L (> 60) Est GFR (Non-Af Amer) 45 L (> 60) BUN/Creatinine Ratio 25 (6-26) Glucose 78 (70-105) mg/dL Calculated Osmolality 298 (280-300) Lactic Acid 1.0 (0.5-2.2) mmol/L Calcium 10.3 (8.6-10.3) mg/dL Total Bilirubin 0.3 (0.3-1.0) mg/dL AST 31 (13-39) Units/L ALT 48 (7-52) Units/L Alkaline Phosphatase 199 H (34-104) Units/L Serum Total Protein 7.7 (6.4-8.9) g/dL Albumin 3.6 (3.5-5.7) g/dL Globulin 4.1 H (2.4-3.5) g/dL Albumin/Globulin Ratio 0.9 L (1.1-2.2) TSH (0.340-5.600) mcIU/mL Urine Color (Yellow) Urine Clarity (Clear) Urine pH (5.0-8.0) pH Units Ur Specific [place] (1.010-1.025) Urine Protein (Neg-Trace) mg/dL Urine Glucose (UA) (Normal) mg/dL Urine Ketones (Negative) mg/dL Urine Blood (Negative) Urine Nitrite (Negative) Urine Bilirubin (Negative) Urine Urobilinogen (Normal) mg/dL Ur Leukocyte Esterase (Negative) Urine Microscopic RBC (0-3) per hpf Urine Microscopic WBC (0-3) per hpf Ur Squamous Epith Cells (None-Few) per lpf Urine Bacteria (None-Few) per hpf Ur Culture Indicated? (NO) 07/12/18 Range/Units 10:00 WBC (4.3-11.1) K/mcL RBC (3.82-4.97) M/mcL Hgb (11.5-15.4) g/dL Hct (35.3-44.9) % MCV (83.0-100.0) fL MCH (28.0-33.3) pg MCHC (31.6-35.5) g/dL RDW (11.5-14.5) % Plt Count (140-400) K/mcL MPV (9.4-12.4) fL Immature Gran % (0-4) % Seg Neutrophils % % Lymphocytes % % Monocytes % % Eosinophils % % Basophils % % Neutrophils # (1.6-8.9) K/mcL Lymphocytes # (0.6-4.6) K/mcL Monocytes # (0.0-1.3) K/mcL Eosinophils # (0.0-0.6) K/mcL Basophils # (0.0-0.2) K/mcL PT (9.4-12.1) Seconds INR APTT (26.0-36.0) Seconds Sodium (136-145) mEq/L Potassium (3.5-5.1) mEq/L Chloride (98-107) mEq/L Carbon Dioxide (23-29) mEq/L BUN (6-20) mg/dL Creatinine (0.60-1.20) mg/dL Est GFR ( Amer) (> 60) Est GFR (Non-Af Amer) (> 60) BUN/Creatinine Ratio (6-26) Glucose (70-105) mg/dL Calculated Osmolality (280-300) Lactic Acid (0.5-2.2) mmol/L Calcium (8.6-10.3) mg/dL Total Bilirubin (0.3-1.0) mg/dL AST (13-39) Units/L ALT (7-52) Units/L Alkaline Phosphatase (34-104) Units/L Serum Total Protein (6.4-8.9) g/dL Albumin (3.5-5.7) g/dL Globulin (2.4-3.5) g/dL Albumin/Globulin Ratio (1.1-2.2) TSH 5.133 (0.340-5.600) mcIU/mL Urine Color (Yellow) Urine Clarity (Clear) Urine pH (5.0-8.0) pH Units Ur Specific [place] (1.010-1.025) Urine Protein (Neg-Trace) mg/dL Urine Glucose (UA) (Normal) mg/dL Urine Ketones (Negative) mg/dL Urine Blood (Negative) Urine Nitrite (Negative) Urine Bilirubin (Negative) Urine Urobilinogen (Normal) mg/dL Ur Leukocyte Esterase (Negative) Urine Microscopic RBC (0-3) per hpf Urine Microscopic WBC (0-3) per hpf Ur Squamous Epith Cells (None-Few) per lpf Urine Bacteria (None-Few) per hpf Ur Culture Indicated? (NO) - Radiology Data Radiology results reviewed: Yes I reviewed the patient's radiology results. ITS Impressions Chest X-Ray 07/12/18 09:00 IMPRESSION: Limited rotated portable chest x-ray, grossly no acute process. D/ / Eduar Ruelas MD / Eduar Ruelas MD Interpreting Provider: Eduar Ruelas MD Checklist - LKW: 3-4.5 hrs Add. Warnings/Precautions Patient/family understanding: The patient/family members have been counseled and understood the risk, benefit, and alternatives of treatment. Critical Care Time Critical Care Time: No
[2018-07-12 09:58] LABS: Bilirubin,Urine Negative (Negative); Blood,Urine Trace-intact (Negative); Clarity,Urine Clear (Clear); Color,Urine Yellow (Yellow); Glucose,Urine (UA) Normal (Normal); Ketones,Urine Negative (Negative); Leukocyte Esterase,Urine Small (Negative); Nitrite,Urine Negative (Negative); PH,Urine 7.5 pH Units (5.0-8.0); Protein,Urine Negative (Neg-Trace); Specific Gravity,Urine 1.015 (1.010-1.025); Urobilinogen,Urine Normal (Normal)
[2018-07-12 10:11] LABS: Basophils % 0.7 %; Eosinophils # 0.2 K/mcL (0.0-0.6); Eosinophils % 3.2 %; Hematocrit 44.1 % (35.3-44.9); Hemoglobin 14.6 g/dL (11.5-15.4); Lymphocytes # 3.6 K/mcL (0.6-4.6); Lymphocytes % 60.5 %; Mean Corpuscular HGB Conc 33.1 g/dL (31.6-35.5); Mean Corpuscular Hemoglobin 32.9 pg (28.0-33.3); Mean Corpuscular Volume 99.3 fL (83.0-100.0); Mean Platelet Volume 10.5 fL (9.4-12.4); Monocytes # 0.4 K/mcL (0.0-1.3); Monocytes % 6.2 %; Neutrophils # 1.8 K/mcL (1.6-8.9); Platelet Count 222 K/mcL (140-400); Red Blood Count 4.44 M/mcL (3.82-4.97); Red Cell Distribution Width 15.9 % (11.5-14.5); Segmented Neutrophils % 29.4 %
[2018-07-12 10:11] LABS: Bacteria,Urine Moderate per hpf (None-Few); Squamous Epithelial Cell,Urine Few per lpf (None-Few); WBC,Urine 0-3 per hpf (0-3)
[2018-07-12 10:23] LABS: Prothrombin Time 11.8 Seconds (9.4-12.1)
[2018-07-12 10:32] LABS: Albumin 3.6 g/dL (3.5-5.7); Albumin/Globulin Ratio 0.9 (1.1-2.2); Bilirubin,Total 0.3 mg/dL (0.3-1.0); Calcium 10.3 mg/dL (8.6-10.3); Globulin 4.1 g/dL (2.4-3.5); Potassium 3.9 mEq/L (3.5-5.1); Total Protein 7.7 g/dL (6.4-8.9)
[2018-07-12] MEDS ORDERED: 0.9 % Sodium Chloride 1,000 ML IVC SCH (12:07)
[2018-07-12] MEDS ORDERED: Loperamide 1 MG/5 ML UDC GTUBE PRN (12:07)
[2018-07-12] MEDS ORDERED: DIAZEPAM RC PRN (12:07)
[2018-07-12] MEDS ORDERED: Albuterol 2.5 MG/3 ML NEBULIZER IH PRN (12:07)
[2018-07-12] MEDS ORDERED: MOM Conc 10 ML UD.LIQ GTUBE PRN (12:07)
[2018-07-12] MEDS ORDERED: Naloxone 0.4 MG/ML INJ IVP PRN (12:07)
[2018-07-12] MEDS: *HR* Rivaroxaban 15 MG TABLET PO SCH (16:12)
[2018-07-12] MEDS: Baclofen 10 MG TABLET GTUBE SCH ×2 (16:12→23:54)
[2018-07-12] MEDS: lamoTRIgine 100 MG TABLET GTUBE SCH (16:12)
--- NOTE | 2018-07-12 17:13 | Internal Med History&Physical ---
Date of Encounter: 07/12/18 Time of Encounter: 16:45 Assessment and Plan (1) Hypothermia Current visit: Yes Status: Acute Intermittently recurrent. Suspect possible hypothalamic dysfunction. Her PCP can refer her to a neurologist if needed for further evaluation. Qualifiers: Encounter type: initial encounter Qualified Code(s): T68.XXXA - Hypothermia, initial encounter (2) Azotemia Current visit: Yes Status: Acute IV fluids have been ordered. Renal indices will be rechecked in a.m. (3) Bacteria in urine Current visit: Yes Status: Acute Small amount of urinary leukocyte esterase and 0-3 WBCs noted. There is no leukocytosis or left shift on differential. She was given Rocephin in emergency room. Will not continue antibiotics at this time. Internal Medicine - H&P: HPI Chief complaint: Hypothermia, decreased responsiveness Admitted From: Emergency Dept Plans for Post Hospital Care: Home History of present illness: Ms. Noel is a 43 year old female who was sent from the [facility] to emergency room after staff found her to have temperature 92.8 and decreased responsiveness. She was confirmed to be hypothermic in emergency room with temperature 92.2 on arrival. [facility] care needs. 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 She was hospitalized at [facility] in June 2017 and July and March 2017 for similar problems. There is no documented record of her having seen infectious disease or neurologist to further evaluate. 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 kyphosis. scoliosis. obesity. fibrocystic breast. contractures. anemia Psychiatric history: no psych history - Past Surgical History Surgical History: other Additional surgical history: G-tube placement, hx of fractures radail wrist, right tibia, proximal right tibia, right humerous head, left humeral neck - Social History Smoking Status: Never smoker Smokeless Tobacco Status: No Alcohol use: none Drug use: none Internal Medicine - H&P: Meds Atropine 1% Opth Drops 1 - 2 drp SL Q4-6H PRN 04/02/15 [History] lamoTRIgine [Lamictal] 100 mg GTUBE QAM 04/02/15 [History] Albuterol Neb [Proventil Neb] 2.5 mg IH Q4H PRN 05/05/15 [History] DiphenhydraMINE [Benadryl] 25 mg GTUBE Q6HR PRN 02/17/16 [History] Loperamide [Imodium] 2 mg PO DAILY PRN 02/17/16 [History] Lovastatin [Mevacor] 20 mg GTUBE HS 02/17/16 [History] Pseudoephedrine [Sudafed] 60 mg PO Q6H PRN 02/17/16 [History] Medroxyprogesterone Acetate [Depo-Provera] 150 mg IM [id number] 06/23/16 [History] Acetaminophen [Tylenol] 650 mg GTUBE Q4HR PRN 10/15/16 [History] Docusate [Colace] 100 mg GTUBE BID 10/15/16 [History] Magnesium Hydroxide [Milk of Magnesia] 30 ml GTUBE Q72H PRN 10/15/16 [History] Polyvinyl Alcohol [Artificial Tears] 1 drop OP DAILY 10/15/16 [History] lamoTRIgine [Lamotrigine] 200 mg GTUBE QAM AND QHS 10/17/16 [History] Diazepam [Diastat Acudial] 1 each RC PRN PRN 11/10/16 [History] Ibuprofen [Motrin] 400 mg PO Q4HR PRN 11/10/16 [History] Polyethylene Glycol 3350 [Gavilax] 17 gm GTUBE QPM 11/10/16 [History] Saliva Stimulant [Biotene Moisturizing Rinse] 0 ml GTUBE Q8H 11/10/16 [History] Calcitonin,[place],Synthetic [Calcitonin-[place]] 200 units NS DAILY 04/15/17 [History] Loratadine [Allergy Relief] 10 mg GTUBE DAILY 04/15/17 [History] Baclofen [Lioresal] 20 mg GTUBE TID 07/17/17 [History] Multivit/Ca/Min/Fe/FA [Thera M Plus] 1 each PO DAILY 02/28/18 [History] Rivaroxaban [Xarelto] 15 mg PO BID 21 Days #42 tablet 02/28/18 [Rx] Allergy/AdvReac Type Severity Reaction Status Date / Time No Known Allergies Allergy Verified 02/28/18 13:56 All Systems PM: A 10-system review of systems was performed and is negative for pertinent findings except as documented above in the HPI. Review of systems: Review of systems from the June 2017 [facility] hospitalization were reviewed and revised as below. Gen.: Her weight was 44.18 kg April 2015. Recorded weight of 68 kg today is of questionable accuracy. Cardiovascular: There is no known hypertension heart failure angina DVT or pulmonary embolus Respiratory: Smoking history is not known. She does not have documented chronic lung disease in available records. GI: She has GERD by history. There is no known disorder of her liver gallbladder or exocrine pancreas. She had fecal impaction requiring disimpaction during her April 2015 hospitalization. : There is no mention of hematuria dysuria or kidney stones. She has had frequent UTIs. She had urinary retention during a previous hospitalization requiring Cheek catheter insertion briefly. Endocrine: There is no known diabetes thyroid disease or hyperlipidemia Hematology/oncology: She has a history of anemia that has resolved. She does not have other known blood disorders or internal malignancies Neurologic: She has a diagnoses of seizure disorder, encephalopathy, cortical blindness, and optic atrophy. Psychiatric: She has no known anxiety depression or other mental health issues Musculoskeletal: She has had fractures of the right radius, right tibia, right humeral head, and left humerus neck. 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 - Constitutional Vitals: Temp Pulse Resp BP Pulse Ox 93.2 F L 48 16 119/72 93 07/12/18 14:49 07/12/18 12:30 07/12/18 12:30 07/12/18 12:30 07/12/18 12:30 Exam: Gen.: She is a well-developed well-nourished female lying in bed who appears in no acute distress. HEENT: Head is atraumatic and normocephalic. Eyes: Her eyes were open and her gaze appears conjugate. There is no scleral icterus. Mouth: Mucosa is moist. Neck: There is no thyromegaly or adenopathy noted. Heart: Regular without murmurs gallops or ectopics Lungs: No wheezes or crackles are heard. Abdomen: NG tube is in place in the epigastric area. No masses or guarding are noted. Extremities: She has an IV infusing in the left foot. Her feet show developmental deformities. She has flexion contractures of her wrists and hands. There is no pitting edema of her ankles. Neurologic: Mental status: Her eyes are open but she does not follow commands. Motor: She does not move spontaneously. She has contractures as per above. No further neurologic testing is attempted. Skin: Warm and dry Internal Med - H&P Results - Labs CBC & Chem 7: 07/12/18 10:00 07/12/18 10:00 Labs: Short CBC 07/12/18 Range/Units 10:00 WBC 6.0 (4.3-11.1) K/mcL Hgb 14.6 (11.5-15.4) g/dL Hct 44.1 (35.3-44.9) % Plt Count 222 (140-400) K/mcL Neutrophils # 1.8 (1.6-8.9) K/mcL BMP 07/12/18 10:00 Sodium 141 Potassium 3.9 Chloride 105 Carbon Dioxide 29 BUN 33 H Creatinine 1.30 H Glucose 78 Calcium 10.3 Liver Function 07/12/18 Range/Units 10:00 Total Bilirubin 0.3 (0.3-1.0) mg/dL AST 31 (13-39) Units/L ALT 48 (7-52) Units/L Alkaline Phosphatase 199 H (34-104) Units/L Albumin 3.6 (3.5-5.7) g/dL Urine 07/12/18 Range/Units 09:30 Urine Color Yellow (Yellow) Urine Clarity Clear (Clear) Urine pH 7.5 (5.0-8.0) pH Units Ur Specific [place] 1.015 (1.010-1.025) Urine Protein Negative (Neg-Trace) mg/dL Urine Glucose (UA) Normal (Normal) mg/dL - Impressions ITS Impressions Chest X-Ray 07/12/18 09:00 IMPRESSION: Limited rotated portable chest x-ray, grossly no acute process. D/ / Eduar Ruelas MD / Eduar Ruelas MD Interpreting Provider: Eduar Ruelas MD
[2018-07-12] MEDS: 0.45 % Sodium Chloride w/KCl 20 MEQ/1,000 ML MLS IVC SCH (23:52)
[2018-07-12] MEDS: Docusate Oral Soln 100 MG/10 ML UDC GTUBE SCH (23:54)
[2018-07-13 07:36] LABS: Basophils % 0.2 %; Eosinophils # 0.1 K/mcL (0.0-0.6); Eosinophils % 0.6 %; Hematocrit 41.3 % (35.3-44.9); Hemoglobin 13.6 g/dL (11.5-15.4); Immature Granulocytes % 0.1 % (0-4); Lymphocytes % 12.7 %; Mean Corpuscular HGB Conc 32.9 g/dL (31.6-35.5); Mean Corpuscular Hemoglobin 32.5 pg (28.0-33.3); Mean Corpuscular Volume 98.8 fL (83.0-100.0); Mean Platelet Volume 10.4 fL (9.4-12.4); Monocytes # 0.4 K/mcL (0.0-1.3); Monocytes % 3.7 %; Neutrophils # 8.1 K/mcL (1.6-8.9); Platelet Count 212 K/mcL (140-400); Red Blood Count 4.18 M/mcL (3.82-4.97); Red Cell Distribution Width 16.3 % (11.5-14.5); Segmented Neutrophils % 82.7 %
[2018-07-13 07:51] LABS: Lymphocytes # 1.2 K/mcL (0.6-4.6)
[2018-07-13 08:41] LABS: BUN/Creatinine Ratio 22 (6-26); Blood Urea Nitrogen 25 mg/dL (6-20); Calcium 9.3 mg/dL (8.6-10.3); Carbon Dioxide 25 mEq/L (23-29); Chloride 111 mEq/L (98-107); Glucose 162 mg/dL (70-105); Osmolality,Calculated 304 (280-300); Potassium 4.4 mEq/L (3.5-5.1); Sodium 143 mEq/L (136-145); eGFR For Non-African Americans 52 (> 60)
[2018-07-13] MEDS ORDERED: Loratadine 10 MG TABLET GTUBE SCH (09:00)
[2018-07-13] MEDS ORDERED: cefTRIAXone 1,000 MG in Water for inj. (sterile) 20 ML 10 ML IVPB SCH (09:00)
--- NOTE | 2018-07-13 09:01 | Internal Med Progress Note ---
Date of Encounter: 07/13/18 Time of Encounter: 08:55 - Assessment and plan (1) Hypothermia Current Visit: Yes Status: Acute Assessment and plan: July 13. Temperature has normalized. WBC has risen to 9.8 with 82.7% segs. Will check chest CT to further evaluate for infection. Will also do a head CT to evaluate for structural abnormality/infarct involving hypothalamus. Qualifiers: Encounter type: initial encounter Qualified Code(s): T68.XXXA - Hypothermia, initial encounter (2) Azotemia Current Visit: Yes Status: Acute Assessment and plan: July 13. BUN and creatinine improved to 25 and 1.15 respectively with estimated GFR 52. Continue IV fluids and tube feedings. Recheck labs in a.m. (3) Bacteria in urine Current Visit: Yes Status: Acute Assessment and plan: July 13. Urine culture pending. Since left shift has developed on the WBC differential will restart Rocephin pending final culture report. - Subjective Interval history: July 13. No new problems have arisen. - Constitutional Vitals: Temp Pulse Resp BP Pulse Ox 97.9 F 115 16 129/75 93 07/13/18 07:09 07/13/18 07:09 07/13/18 07:09 07/13/18 07:09 07/13/18 07:09 Exam: She is lying in bed with eyes open. She does not respond to voice or light touch. Lungs show few scattered rhonchi. I reviewed her medications and lab results. Internal Medicine: Result - Labs CBC & Chem 7: 07/13/18 05:40 07/13/18 05:40 Labs: Short CBC 07/12/18 07/13/18 Range/Units 10:00 05:40 WBC 6.0 9.8 D (4.3-11.1) K/mcL Hgb 14.6 13.6 (11.5-15.4) g/dL Hct 44.1 41.3 (35.3-44.9) % Plt Count 222 212 (140-400) K/mcL Neutrophils # 1.8 8.1 (1.6-8.9) K/mcL BMP 07/12/18 07/13/18 10:00 05:40 Sodium 141 143 Potassium 3.9 4.4 Chloride 105 111 H Carbon Dioxide 29 25 BUN 33 H 25 H Creatinine 1.30 H 1.15 Glucose 78 162 H Calcium 10.3 9.3 Liver Function 07/12/18 Range/Units 10:00 Total Bilirubin 0.3 (0.3-1.0) mg/dL AST 31 (13-39) Units/L ALT 48 (7-52) Units/L Alkaline Phosphatase 199 H (34-104) Units/L Albumin 3.6 (3.5-5.7) g/dL Urine 07/12/18 Range/Units 09:30 Urine Color Yellow (Yellow) Urine Clarity Clear (Clear) Urine pH 7.5 (5.0-8.0) pH Units Ur Specific [place] 1.015 (1.010-1.025) Urine Protein Negative (Neg-Trace) mg/dL Urine Glucose (UA) Normal (Normal) mg/dL - ABG Interpretation ABG results: PT/INR, D-dimer PT 11.8 Seconds (9.4-12.1) 07/12/18 10:00 - Impressions Impressions Chest X-Ray 07/12/18 09:00 IMPRESSION: Limited rotated portable chest x-ray, grossly no acute process. D/ / Eduar Ruelas MD / Eduar Ruelas MD Interpreting Provider: Edaur Ruelas MD Consult Discharge Plan - Plan Referrals: Nadira Glynn MD [Primary Care Provider] - 1 week
[2018-07-13] MEDS: *HR* Rivaroxaban 15 MG TABLET PO SCH ×2 (10:29→18:11)
[2018-07-13] MEDS: Baclofen 10 MG TABLET GTUBE SCH ×3 (10:30→20:59)
[2018-07-13] MEDS: Docusate Oral Soln 100 MG/10 ML UDC GTUBE SCH ×2 (10:30→20:59)
[2018-07-13] MEDS: Multivit/Ca/Min/Fe/FA 1 TAB TABLET PO SCH (10:30)
[2018-07-13] MEDS: lamoTRIgine 100 MG TABLET GTUBE SCH ×2 (10:31→18:12)
[2018-07-13] MEDS: Artificial Tears SOLN 15 ML BOTTLE OP SCH (10:31)
[2018-07-13] MEDS: CALCITONIN SALMON NS SCH (10:32)
[2018-07-13] MEDS: cefTRIAXone 1,000 MG in Water for inj. (sterile) 20 ML 10 ML IVP SCH (10:58)
[2018-07-13] MEDS: 0.45 % Sodium Chloride w/KCl 20 MEQ/1,000 ML MLS IVC SCH ×2 (11:07→20:59)
[2018-07-13] MEDS: Azithromycin 500 MG in D5% in Water 250 ML IVPB SCH (12:32)
[2018-07-13] MEDS: Lactobacillus 1 EACH CAP.SPRINK PO SCH (20:59)
[2018-07-14] MEDS: MetroNIDAZOLE 500 MG/100 ML 500 MG/100 ML BAG IVPB SCH ×3 (04:37→21:12)
[2018-07-14 06:03] LABS: Basophils % 0.4 %; Eosinophils # 0.2 K/mcL (0.0-0.6); Eosinophils % 1.8 %; Hematocrit 36.7 % (35.3-44.9); Hemoglobin 11.9 g/dL (11.5-15.4); Immature Granulocytes % 0.2 % (0-4); Lymphocytes % 40.2 %; Mean Corpuscular HGB Conc 32.4 g/dL (31.6-35.5); Mean Corpuscular Hemoglobin 32.3 pg (28.0-33.3); Mean Corpuscular Volume 99.7 fL (83.0-100.0); Mean Platelet Volume 10.9 fL (9.4-12.4); Monocytes # 0.3 K/mcL (0.0-1.3); Monocytes % 3.3 %; Neutrophils # 5.4 K/mcL (1.6-8.9); Platelet Count 202 K/mcL (140-400); Red Blood Count 3.68 M/mcL (3.82-4.97); Red Cell Distribution Width 16.4 % (11.5-14.5); Segmented Neutrophils % 54.1 %
[2018-07-14 06:31] LABS: BUN/Creatinine Ratio 19 (6-26); Blood Urea Nitrogen 18 mg/dL (6-20); Calcium 8.9 mg/dL (8.6-10.3); Carbon Dioxide 22 mEq/L (23-29); Chloride 112 mEq/L (98-107); Glucose 68 mg/dL (70-105); Osmolality,Calculated 292 (280-300); Potassium 3.9 mEq/L (3.5-5.1); Sodium 141 mEq/L (136-145); eGFR For Non-African Americans > 60 (> 60)
--- NOTE | 2018-07-14 07:59 | Internal Med Progress Note ---
Date of Encounter: 07/14/18 Time of Encounter: 07:57 - Assessment and plan (1) Multifocal pneumonia Current Visit: Yes Status: Acute Assessment and plan: Pt with multifocal pneumonia on CT with some concern for aspiration. Metron idazole added overnight for anaerobic coverage. Will continue current antibiotic regimen with aggressive pulmonary toilet. Blood cultures pending. (2) Urinary tract infection Current Visit: No Status: Acute Assessment and plan: GNR growing on culture. Will continue ceftriaxone and monitor. Qualifiers: Urinary tract infection type: site unspecified Hematuria presence: without hematuria Qualified Code(s): N39.0 - Urinary tract infection, site not specified - Time Spent With Patient 25 - 35 minutes - Subjective Interval history: There have been no significant interval changes overnight. Metronidazole was added for antibiotic coverage overnight given CT chest findings. Nebulizer treatments and respiratory therapy ordered as well. Pt unable to contribute to any history secondary to underlying cognitive impairment. Nurses without acute concerns other than thick mucous secretions from chest upon suctioning. - Constitutional Vitals: Temp Pulse Resp BP Pulse Ox 98.3 F 88 16 143/92 94 07/14/18 06:26 07/14/18 06:26 07/14/18 06:26 07/14/18 06:26 07/14/18 06:26 Exam: Gen: Lying in bed, NAD HEENT: NC, AT Neck: Trachea midline, no mass Pulm: No respiratory distress, scattered rhonchi with occassional expiratory wheeze throughout CV: Normal S1 and S2, RRR Abdomen: Soft, ND, NT Ext: + contractures of hands, + bilateral foot deformity Skin: Warm and dry, no rash Psych: opens eyes to voice, does not follow commands, does not speak Internal Medicine: Result - Labs CBC & Chem 7: 07/14/18 04:31 07/14/18 04:31 Labs: Short CBC 07/14/18 Range/Units 04:31 WBC 9.9 (4.3-11.1) K/mcL Hgb 11.9 D (11.5-15.4) g/dL Hct 36.7 (35.3-44.9) % Plt Count 202 (140-400) K/mcL Neutrophils # 5.4 (1.6-8.9) K/mcL BMP 07/13/18 07/14/18 05:40 04:31 Sodium 143 141 Potassium 4.4 3.9 Chloride 111 H 112 H Carbon Dioxide 25 22 L BUN 25 H 18 Creatinine 1.15 0.96 Glucose 162 H 68 L Calcium 9.3 8.9 - ABG Interpretation ABG results: PT/INR, D-dimer PT 11.8 Seconds (9.4-12.1) 07/12/18 10:00 - Impressions Impressions Head CT 07/13/18 08:59 IMPRESSION: Chronic severe atrophy/hydrocephalus. D/ / Tio Mccallum MD / Tio Mccallum MD Interpreting Provider: Tio Mccallum MD Chest CT 07/13/18 09:00 IMPRESSION: 1. Multifocal pneumonia with thickened secretions versus aspiration/mucous plugging in the left lower lobe bronchi which are narrowed. 2. Trace left pleural effusion. 3. Nonobstructing bilateral renal calculi, incompletely imaged. D/ / 07/13/2018 11:34:14 Reji Cisneros MD / [employer] [facility] Interpreting Provider: Reji Cisneros MD Consult Discharge Plan - Plan Referrals: Nadira Glynn MD [Primary Care Provider] - 1 week
[2018-07-14] MEDS: CALCITONIN SALMON NS SCH (09:00)
[2018-07-14] MEDS: cefTRIAXone 1,000 MG in Water for inj. (sterile) 20 ML 10 ML IVP SCH (09:20)
[2018-07-14] MEDS: Docusate Oral Soln 100 MG/10 ML UDC GTUBE SCH ×2 (09:22→21:13)
[2018-07-14] MEDS: Multivit/Ca/Min/Fe/FA 1 TAB TABLET PO SCH (09:23)
[2018-07-14] MEDS: Lactobacillus 1 EACH CAP.SPRINK PO SCH ×2 (09:23→21:13)
[2018-07-14] MEDS: lamoTRIgine 100 MG TABLET GTUBE SCH ×2 (09:23→16:57)
[2018-07-14] MEDS: *HR* Rivaroxaban 15 MG TABLET PO SCH ×2 (09:23→16:57)
[2018-07-14] MEDS: Baclofen 10 MG TABLET GTUBE SCH ×3 (09:23→21:13)
[2018-07-14] MEDS: Artificial Tears SOLN 15 ML BOTTLE OP SCH (09:24)
[2018-07-14] MEDS ORDERED: Acetylcysteine 10% 2 ML INHSOL IH SCH (12:00)
[2018-07-14] MEDS: Azithromycin 500 MG in D5% in Water 250 ML IVPB SCH (14:29)
--- NOTE | 2018-07-14 16:13 | Electrocardiograph Report ---
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
[2018-07-15 05:04] LABS: Basophils % 0.6 %; Eosinophils # 0.2 K/mcL (0.0-0.6); Eosinophils % 2.9 %; Hematocrit 37.2 % (35.3-44.9); Hemoglobin 12.3 g/dL (11.5-15.4); Immature Granulocytes % 0.5 % (0-4); Lymphocytes # 3.3 K/mcL (0.6-4.6); Lymphocytes % 50.1 %; Mean Corpuscular HGB Conc 33.1 g/dL (31.6-35.5); Mean Corpuscular Hemoglobin 32.8 pg (28.0-33.3); Mean Corpuscular Volume 99.2 fL (83.0-100.0); Mean Platelet Volume 10.1 fL (9.4-12.4); Monocytes # 0.4 K/mcL (0.0-1.3); Monocytes % 6.6 %; Neutrophils # 2.6 K/mcL (1.6-8.9); Platelet Count 191 K/mcL (140-400); Red Blood Count 3.75 M/mcL (3.82-4.97); Red Cell Distribution Width 16.5 % (11.5-14.5); Segmented Neutrophils % 39.3 %
[2018-07-15] MEDS: MetroNIDAZOLE 500 MG/100 ML 500 MG/100 ML BAG IVPB SCH (05:08)
[2018-07-15 05:27] LABS: BUN/Creatinine Ratio 22 (6-26); Blood Urea Nitrogen 20 mg/dL (6-20); Calcium 9.4 mg/dL (8.6-10.3); Carbon Dioxide 24 mEq/L (23-29); Chloride 109 mEq/L (98-107); Glucose 76 mg/dL (70-105); Osmolality,Calculated 291 (280-300); Phosphorous 3.7 mg/dL (2.7-4.5); Potassium 4.1 mEq/L (3.5-5.1); Sodium 140 mEq/L (136-145); eGFR For Non-African Americans > 60 (> 60)
[2018-07-15 07:11] VITALS: BP 150/91
[2018-07-15] MEDS: Baclofen 10 MG TABLET GTUBE SCH (10:44)
[2018-07-15] MEDS: Lactobacillus 1 EACH CAP.SPRINK PO SCH (10:44)
[2018-07-15] MEDS: Docusate Oral Soln 100 MG/10 ML UDC GTUBE SCH (10:45)
[2018-07-15] MEDS: cefTRIAXone 1,000 MG in Water for inj. (sterile) 20 ML 10 ML IVP SCH (10:45)
[2018-07-15] MEDS: Multivit/Ca/Min/Fe/FA 1 TAB TABLET PO SCH (10:45)
[2018-07-15] MEDS: lamoTRIgine 100 MG TABLET GTUBE SCH (10:45)
[2018-07-15] MEDS: CALCITONIN SALMON NS SCH (10:46)
[2018-07-15] MEDS: Artificial Tears SOLN 15 ML BOTTLE OP SCH (10:46)
[2018-07-15] MEDS: *HR* Rivaroxaban 15 MG TABLET PO SCH (11:32)
--- NOTE | 2018-07-15 11:45 | Discharge Summary ---
Orders not resulted at time of discharge: Pending orders 07/12/18 11:17 Culture,Blood [BC] Stat Date of Encounter: 07/15/18 Time of Encounter: 11:38 - Discharge Diagnosis (1) Pneumonia Priority: Primary Status: Acute Qualifiers: Pneumonia type: due to unspecified organism Laterality: left Lung location: lower lobe of lung Qualified Code(s): J18.1 - Lobar pneumonia, unspecified organism (2) UTI (urinary tract infection) Priority: Secondary Status: Acute Qualifiers: Urinary tract infection type: site unspecified Hematuria presence: with hematuria Qualified Code(s): N39.0 - Urinary tract infection, site not specified; R31.9 - Hematuria, unspecified (3) Hypothermia Priority: Secondary Status: Resolved Qualifiers: Encounter type: initial encounter Qualified Code(s): T68.XXXA - Hypothermia, initial encounter (4) Azotemia Priority: Secondary Status: Resolved Hospital course: Ms. Noel is a 43 year old female who was sent from the [facility] to emergency room after staff found her to have temperature 92.8 and decreased responsiveness. She was confirmed to be hypothermic in emergency room with temperature 92.2 on arrival. She was admitted to [facility] for ongoing care needs. Initial orders were written by the emergency room physician. I saw her on July 12 and performed a history and physical. CT of head and chest was done to further evaluate. The head CT showed chronic severe atrophy with ventriculomegaly. Chest CT showed multifocal pneumonia with narrowing of the left lower lobe bronchus. There was lesser extent involving the lingula. She was started on Rocephin in emergency room. This was continued and Zithromax was added for added spectrum coverage. She will be discharged home on Augmentin and Zithromax for 3 additional days. Urine culture returned showing growth of Morganella morganii and Enterococcus faecalis. She will be discharged on Macrobid and Augmentin with lactobacillus for 3 additional days. Hypothermia resolved with treatment. WBC remained normal with resolution of left shift on day of discharge. Azotemia resolved with BUN and creatinine decreasing to 20 and 0.90 respectively by day of discharge. She will be discharged back to [facility] and follow with her PCP Dr. Glynn. - Time Spent with Patient Total time spent providing and/or coordinating discharge services: - Discharge Medications Prescriptions: Amoxicillin/Clavulanate [AUGMENTIN Susp] 10 ml PO Q8HR #100 mls Lactobacillus [Culturelle] 1 each PO BID #6 cap.sprink Nitrofurantoin (BID) [Macrobid] 100 mg PO BID #6 capsule Home Medications: Atropine 1% Opth Drops 1 - 2 drp SL Q4-6H PRN 04/02/15 [History] lamoTRIgine [Lamictal] 100 mg GTUBE QAM 04/02/15 [History] Albuterol Neb [Proventil Neb] 2.5 mg IH Q4H PRN 05/05/15 [History] DiphenhydraMINE [Benadryl] 25 mg GTUBE Q6HR PRN 02/17/16 [History] Loperamide [Imodium] 2 mg PO DAILY PRN 02/17/16 [History] Lovastatin [Mevacor] 20 mg GTUBE HS 02/17/16 [History] Pseudoephedrine [Sudafed] 60 mg PO Q6H PRN 02/17/16 [History] Medroxyprogesterone Acetate [Depo-Provera] 150 mg IM [id number] 06/23/16 [History] Acetaminophen [Tylenol] 650 mg GTUBE Q4HR PRN 10/15/16 [History] Docusate [Colace] 100 mg GTUBE BID 10/15/16 [History] Magnesium Hydroxide [Milk of Magnesia] 30 ml GTUBE Q72H PRN 10/15/16 [History] Polyvinyl Alcohol [Artificial Tears] 1 drop OP DAILY 10/15/16 [History] lamoTRIgine [Lamotrigine] 200 mg GTUBE QAM AND QHS 10/17/16 [History] Diazepam [Diastat Acudial] 1 each RC PRN PRN 11/10/16 [History] Ibuprofen [Motrin] 400 mg PO Q4HR PRN 11/10/16 [History] Polyethylene Glycol 3350 [Gavilax] 17 gm GTUBE QPM 11/10/16 [History] Saliva Stimulant [Biotene Moisturizing Rinse] 0 ml GTUBE Q8H 11/10/16 [History] Calcitonin,[place],Synthetic [Calcitonin-[place]] 200 units NS DAILY 04/15/17 [History] Loratadine [Allergy Relief] 10 mg GTUBE DAILY 04/15/17 [History] Baclofen [Lioresal] 20 mg GTUBE TID 07/17/17 [History] Multivit/Ca/Min/Fe/FA [Thera M Plus] 1 each PO DAILY 02/28/18 [History] Rivaroxaban [Xarelto] 15 mg PO BID 21 Days #42 tablet 02/28/18 [Rx] Amoxicillin/Clavulanate [AUGMENTIN Susp] 10 ml PO Q8HR #100 mls 07/15/18 [Rx] Lactobacillus [Culturelle] 1 each PO BID #6 cap.sprink 07/15/18 [Rx] Nitrofurantoin (BID) [Macrobid] 100 mg PO BID #6 capsule 07/15/18 [Rx] Allergies/Adverse Reactions: Allergy/AdvReac Type Severity Reaction Status Date / Time No Known Allergies Allergy Verified 02/28/18 13:56 Date of admission: 07/13/18 09:07 Primary care physician: Nadira Glynn Consults: 07/12/18 15:58 Consult to Nutrition [CONS] Routine Comment: Consulting Provider: NUTRITION Reason for Dietary Consult: Tube Feed Start & Manage - Constitutional Vitals: Temp Pulse Resp BP Pulse Ox 97.5 F L 63 14 150/91 96 07/15/18 07:11 07/15/18 07:11 07/15/18 07:11 07/15/18 07:11 07/15/18 10:49 - Patient Status Disposition: Home, Self-Care Condition: Fair - Discharge Instructions Follow Up With: Nadira Glynn MD [Primary Care Provider] - 1 week - Diet and Activity Activity: resume usual activities as tolerated Diet: advance to your usual diet
[2018-07-15] MEDS ORDERED: *HR* Rivaroxaban 15 MG TABLET PO SCH (17:00)
== END 2018-07-15 13:20 | disposition home or self-care (01) | DRG 139 ==
LOC: EMEROOPIK 08:50 → INPPIK 08:50
PROVIDERS: ADMIT Internal Medicine; ATTEND Internal Medicine

== ENCOUNTER 2018-11-02 22:36 | Inpatient (IN) ==
[2018-11-02] MEDS ORDERED: 0.9 % Sodium Chloride 1,000 ML IVC ONE (22:51)
[2018-11-02] MEDS ORDERED: levoFLOXacin 750 MG/150 ML 750 MG/150 ML BAG IVPB ONE (22:51)
--- NOTE | 2018-11-02 22:51 | Emergency Department Note ---
Disposition Clinical Impression: UTI (urinary tract infection) Disposition: Admitted As Inpatient Condition: Good Referrals: Nadira Glynn MD [Primary Care Provider] - Forms: ED Satisfaction Letter Time of Disposition: 01:05 General Adult HPI - General Chief complaint: ED General Medical Stated complaint: UTI, low temp Time Seen by Provider: 11/02/18 22:51 Source: EMS Mode of arrival: EMS Limitations: physical limitation Nursing Notes Reviewed: Yes Vital Signs Reviewed: Yes - History of Present Illness HPI Narrative: Patient sent in from alf today for low temperature and UTI. They started on Macrobid today she has had 3 doses 10 mL doses but not sure exactly what the milligrams is. They did not do a chest x-ray there stating they wanted us to do one here. Patient frequently has hypothermia and urinary tract infections. She is frequently admitted for warming and IV antibiotics. A she herself is nonverbal history is taken from the chart and the alf report which was scant - Related Data Home Medications Medication Instructions Recorded Confirmed Atropine 1% Opth Drops 1 - 2 drp SL Q4-6H PRN 04/02/15 10/29/18 lamoTRIgine [Lamictal] 100 mg GTUBE QAM 04/02/15 10/29/18 Albuterol Neb [Proventil Neb] 2.5 mg IH Q4H PRN 05/05/15 10/29/18 DiphenhydraMINE [Benadryl] 25 mg GTUBE Q6HR PRN 02/17/16 10/29/18 Loperamide [Imodium] 2 mg PO DAILY PRN 02/17/16 10/29/18 Lovastatin [Mevacor] 20 mg GTUBE HS 02/17/16 10/29/18 Pseudoephedrine [Sudafed] 60 mg PO Q6H PRN 02/17/16 10/29/18 Medroxyprogesterone Acetate 150 mg IM [id number] 06/23/16 10/29/18 [Depo-Provera] Acetaminophen [Tylenol] 650 mg GTUBE Q4HR PRN 10/15/16 10/29/18 Docusate [Colace] 100 mg GTUBE BID 10/15/16 10/29/18 Magnesium Hydroxide [Milk of 30 ml GTUBE Q72H PRN 10/15/16 10/29/18 Magnesia] Polyvinyl Alcohol [Artificial 1 drop OP DAILY 10/15/16 10/29/18 Tears] lamoTRIgine [Lamotrigine] 200 mg GTUBE QAM AND QHS 10/17/16 10/29/18 Diazepam [Diastat Acudial] 1 each RC PRN PRN 11/10/16 10/29/18 Ibuprofen [Motrin] 400 mg PO Q4HR PRN 11/10/16 10/29/18 Polyethylene Glycol 3350 [Gavilax] 17 gm GTUBE QPM 11/10/16 10/29/18 Saliva Stimulant [Biotene 0 ml GTUBE Q8H 11/10/16 10/29/18 Moisturizing Rinse] Calcitonin,[place],Synthetic 200 units NS DAILY 04/15/17 10/29/18 [Calcitonin-[place]] Loratadine [Allergy Relief] 10 mg GTUBE DAILY 04/15/17 10/29/18 Baclofen [Lioresal] 20 mg GTUBE TID 07/17/17 10/29/18 Multivit/Ca/Min/Fe/FA [Thera M 1 each PO DAILY 02/28/18 10/29/18 Plus] Previous Rx's Medication Instructions Recorded Rivaroxaban [Xarelto] 15 mg PO BID 21 Days #42 tablet 02/28/18 Lactobacillus [Culturelle] 1 each PO BID #6 cap.sprink 07/15/18 Nitrofurantoin (BID) [Macrobid] 100 mg PO BID #6 capsule 07/15/18 Allergies Allergy/AdvReac Type Severity Reaction Status Date / Time No Known Allergies Allergy Verified 02/28/18 13:56 Review of Systems: All other systems are negative except as noted/marked Chart generated with voice recognition software Nursing notes reviewed Old records reviewed Past Medical History - Past Medical History Attestation: Yes The following information was validated with the patient. Source: patient, old records reviewed, nursing notes reviewed Medical history: Reports: arthritis, GERD, hyperlipidemia, osteoporosis, seizures, other Surgical history: Reports: other (G-tube, Rosita fundoplication) Psychiatric history: Reports: no psych history ORAL AND MAXILLOFACIAL SURGERY RESIDENT history: Reports: no ORAL AND MAXILLOFACIAL SURGERY RESIDENT history - Social History Smoking Status: Never smoker Smokeless Tobacco Status: No Alcohol use: Reports: none Drug use: Reports: none Physical Exam - General Limitations: physical limitation General appearance: alert, in no apparent distress - Head Head exam: atraumatic, normocephalic, normal inspection - Eye Eye exam: Present: normal appearance, PERRL, EOMI - ENT ENT exam: normal exam, mucous membranes dry, normal external ear exam - Neck Neck exam: Present: normal inspection, full ROM, trachea midline - Chest Chest inspection: Present: normal inspection, symmetric chest wall rise - Respiratory Respiratory exam: Present: other (lung sounds bilaterally, coarse no wheezing) - Cardiovascular Cardiovascular exam: Present: regular rate, normal rhythm, normal heart sounds - Abdominal Exam Abdominal exam: Present: soft, Non-Tender, normal bowel sounds - Extremities Exam Extremities exam: Present: pedal edema (trace), other (contracted, cap refill < 3 seconds). Absent: joint swelling - Neurological Exam Neurological exam: Present: alert - Psychiatric Psychiatric exam: Present: normal affect - Skin Skin exam: Present: warm, dry, intact Course Vital Signs Temperature 93.4 F L 11/02/18 22:43 Pulse Rate 57 11/02/18 22:43 Respiratory Rate 16 11/02/18 22:43 Blood Pressure 169/101 11/02/18 22:43 O2 Sat by Pulse Oximetry 100 11/02/18 22:43 Temperature 93.4 F L 11/02/18 22:43 Pulse Rate 73 11/03/18 00:13 Respiratory Rate 16 11/03/18 00:13 Blood Pressure 133/82 11/03/18 00:13 O2 Sat by Pulse Oximetry 99 11/03/18 00:13 Oxygen Delivery Oxygen Delivery Room Air Medical Decision Making - [facility] Narrative Medical decision making narrative: 43-year-old female presents today with hypothermia and a urinary tract infection. She said 3 dose for Macrobid. Her urinalysis today looks worse than it did a couple of days ago. I am not convinced that the Macrobid is working. Her initial rectal temp was low however her for a temp was warm and her skin felt warm to me. Placed a bear hugger on her. Her repeat temperature was 96 3. She had IV Levaquin here and some IV fluids. I am going to keep her overnight for hydration and reassessment in the morning. I spoke with Dr. Pimentel about this knee agreed with my recommendation. - Medical Records Medical records reviewed: Yes I reviewed the patient's medical records. - Lab Data Lab results reviewed: Yes I reviewed the patient's lab results. Result diagrams: 11/02/18 23:15 11/02/18 23:45 Lab Results 11/02/18 11/02/18 11/02/18 Range/Units 23:15 23:25 23:34 WBC 7.1 (4.3-11.1) K/mcL RBC 4.75 (3.82-4.97) M/mcL Hgb 15.2 (11.5-15.4) g/dL Hct 46.1 H (35.3-44.9) % MCV 97.1 (83.0-100.0) fL MCH 32.0 (28.0-33.3) pg MCHC 33.0 (31.6-35.5) g/dL RDW 14.6 H (11.5-14.5) % Plt Count 277 (140-400) K/mcL MPV 11.5 (9.4-12.4) fL Immature Gran % 0.1 (0-4) % Seg Neutrophils % 37.3 % Lymphocytes % 52.4 % Monocytes % 5.8 % Eosinophils % 3.7 % Basophils % 0.7 % Neutrophils # 2.6 (1.6-8.9) K/mcL Lymphocytes # 3.7 (0.6-4.6) K/mcL Monocytes # 0.4 (0.0-1.3) K/mcL Eosinophils # 0.3 (0.0-0.6) K/mcL Basophils # 0.1 (0.0-0.2) K/mcL PT (9.4-12.1) Seconds INR APTT (26.0-36.0) Seconds Sample Site R Radial ABG pH 7.48 H (7.32-7.45) pH Units ABG pCO2 36 (35-45) mmHg ABG pO2 195 H (85-104) mmHg ABG HCO3 27 (21-27) mEq/L ABG Total CO2 28 H (20-26) mEq/L ABG O2 Saturation 100 H (95-98) % ABG Base Excess 3 (-2 to 3) mEq/L Bradly Test Positive VBG pH 7.47 H (7.32-7.42) pH Units VBG pCO2 35 L (41-51) mmHg VBG pO2 194 H (25-50) mmHg VBG HCO3 26 (21-27) mEq/L O2 Delivery Device Room Air Sodium (136-145) mEq/L Potassium (3.5-5.1) mEq/L Chloride (98-107) mEq/L Carbon Dioxide (23-29) mEq/L BUN (6-20) mg/dL Creatinine (0.60-1.20) mg/dL Est GFR ( Amer) (> 60) Est GFR (Non-Af Amer) (> 60) BUN/Creatinine Ratio (6-26) Glucose (70-105) mg/dL Calculated Osmolality (280-300) Lactic Acid (0.5-2.2) mmol/L Calcium (8.6-10.3) mg/dL Phosphorus (2.7-4.5) mg/dL Magnesium (1.6-2.6) mg/dL Total Bilirubin (0.3-1.0) mg/dL Direct Bilirubin (0.0-0.2) mg/dL Indirect Bilirubin (0.0-1.2) mg/dL AST (13-39) Units/L ALT (7-52) Units/L Alkaline Phosphatase (34-104) Units/L Troponin I (< 0.04) ng/mL Serum Total Protein (6.4-8.9) g/dL Albumin (3.5-5.7) g/dL Globulin (2.4-3.5) g/dL Albumin/Globulin Ratio (1.1-2.2) Urine Color (Yellow) Urine Clarity (Clear) Urine pH (5.0-8.0) pH Units Ur Specific [employer] (1.010-1.025) Urine Protein (Neg-Trace) mg/dL Urine Glucose (UA) (Normal) mg/dL Urine Ketones (Negative) mg/dL Urine Blood (Negative) Urine Nitrite (Negative) Urine Bilirubin (Negative) Urine Urobilinogen (Normal) mg/dL Ur Leukocyte Esterase (Negative) Urine Microscopic RBC (0-3) per hpf Urine Microscopic WBC (0-3) per hpf Ur Squamous Epith Cells (None-Few) per lpf Urine Bacteria (None-Few) per hpf Hyaline Casts (None-Few) per lpf Urine Mucus (Few) Ur Culture Indicated? (NO) 11/02/18 11/02/18 11/02/18 Range/Units 23:45 23:45 23:45 WBC (4.3-11.1) K/mcL RBC (3.82-4.97) M/mcL Hgb (11.5-15.4) g/dL Hct (35.3-44.9) % MCV (83.0-100.0) fL MCH (28.0-33.3) pg MCHC (31.6-35.5) g/dL RDW (11.5-14.5) % Plt Count (140-400) K/mcL MPV (9.4-12.4) fL Immature Gran % (0-4) % Seg Neutrophils % % Lymphocytes % % Monocytes % % Eosinophils % % Basophils % % Neutrophils # (1.6-8.9) K/mcL Lymphocytes # (0.6-4.6) K/mcL Monocytes # (0.0-1.3) K/mcL Eosinophils # (0.0-0.6) K/mcL Basophils # (0.0-0.2) K/mcL PT 11.7 (9.4-12.1) Seconds INR 1.0 APTT 41.5 H (26.0-36.0) Seconds Sample Site ABG pH (7.32-7.45) pH Units ABG pCO2 (35-45) mmHg ABG pO2 (85-104) mmHg ABG HCO3 (21-27) mEq/L ABG Total CO2 (20-26) mEq/L ABG O2 Saturation (95-98) % ABG Base Excess (-2 to 3) mEq/L Bradly Test VBG pH (7.32-7.42) pH Units VBG pCO2 (41-51) mmHg VBG pO2 (25-50) mmHg VBG HCO3 (21-27) mEq/L O2 Delivery Device Sodium 142 (136-145) mEq/L Potassium 3.9 (3.5-5.1) mEq/L Chloride 109 H (98-107) mEq/L Carbon Dioxide 27 (23-29) mEq/L BUN 28 H (6-20) mg/dL Creatinine 1.06 (0.60-1.20) mg/dL Est GFR ( Amer) > 60 (> 60) Est GFR (Non-Af Amer) 57 L (> 60) BUN/Creatinine Ratio 26 (6-26) Glucose 93 (70-105) mg/dL Calculated Osmolality 299 (280-300) Lactic Acid 0.7 (0.5-2.2) mmol/L Calcium 9.4 (8.6-10.3) mg/dL Phosphorus 4.2 (2.7-4.5) mg/dL Magnesium 2.6 (1.6-2.6) mg/dL Total Bilirubin 0.2 L (0.3-1.0) mg/dL Direct Bilirubin 0.1 (0.0-0.2) mg/dL Indirect Bilirubin 0.1 (0.0-1.2) mg/dL AST 24 (13-39) Units/L ALT 38 (7-52) Units/L Alkaline Phosphatase 127 H (34-104) Units/L Troponin I < 0.03 (< 0.04) ng/mL Serum Total Protein 6.5 (6.4-8.9) g/dL Albumin 3.2 L (3.5-5.7) g/dL Globulin 3.3 (2.4-3.5) g/dL Albumin/Globulin Ratio 1.0 L (1.1-2.2) Urine Color (Yellow) Urine Clarity (Clear) Urine pH (5.0-8.0) pH Units Ur Specific [employer] (1.010-1.025) Urine Protein (Neg-Trace) mg/dL Urine Glucose (UA) (Normal) mg/dL Urine Ketones (Negative) mg/dL Urine Blood (Negative) Urine Nitrite (Negative) Urine Bilirubin (Negative) Urine Urobilinogen (Normal) mg/dL Ur Leukocyte Esterase (Negative) Urine Microscopic RBC (0-3) per hpf Urine Microscopic WBC (0-3) per hpf Ur Squamous Epith Cells (None-Few) per lpf Urine Bacteria (None-Few) per hpf Hyaline Casts (None-Few) per lpf Urine Mucus (Few) Ur Culture Indicated? (NO) 11/03/18 Range/Units 00:12 WBC (4.3-11.1) K/mcL RBC (3.82-4.97) M/mcL Hgb (11.5-15.4) g/dL Hct (35.3-44.9) % MCV (83.0-100.0) fL MCH (28.0-33.3) pg MCHC (31.6-35.5) g/dL RDW (11.5-14.5) % Plt Count (140-400) K/mcL MPV (9.4-12.4) fL Immature Gran % (0-4) % Seg Neutrophils % % Lymphocytes % % Monocytes % % Eosinophils % % Basophils % % Neutrophils # (1.6-8.9) K/mcL Lymphocytes # (0.6-4.6) K/mcL Monocytes # (0.0-1.3) K/mcL Eosinophils # (0.0-0.6) K/mcL Basophils # (0.0-0.2) K/mcL PT (9.4-12.1) Seconds INR APTT (26.0-36.0) Seconds Sample Site ABG pH (7.32-7.45) pH Units ABG pCO2 (35-45) mmHg ABG pO2 (85-104) mmHg ABG HCO3 (21-27) mEq/L ABG Total CO2 (20-26) mEq/L ABG O2 Saturation (95-98) % ABG Base Excess (-2 to 3) mEq/L Bradly Test VBG pH (7.32-7.42) pH Units VBG pCO2 (41-51) mmHg VBG pO2 (25-50) mmHg VBG HCO3 (21-27) mEq/L O2 Delivery Device Sodium (136-145) mEq/L Potassium (3.5-5.1) mEq/L Chloride (98-107) mEq/L Carbon Dioxide (23-29) mEq/L BUN (6-20) mg/dL Creatinine (0.60-1.20) mg/dL Est GFR ( Amer) (> 60) Est GFR (Non-Af Amer) (> 60) BUN/Creatinine Ratio (6-26) Glucose (70-105) mg/dL Calculated Osmolality (280-300) Lactic Acid (0.5-2.2) mmol/L Calcium (8.6-10.3) mg/dL Phosphorus (2.7-4.5) mg/dL Magnesium (1.6-2.6) mg/dL Total Bilirubin (0.3-1.0) mg/dL Direct Bilirubin (0.0-0.2) mg/dL Indirect Bilirubin (0.0-1.2) mg/dL AST (13-39) Units/L ALT (7-52) Units/L Alkaline Phosphatase (34-104) Units/L Troponin I (< 0.04) ng/mL Serum Total Protein (6.4-8.9) g/dL Albumin (3.5-5.7) g/dL Globulin (2.4-3.5) g/dL Albumin/Globulin Ratio (1.1-2.2) Urine Color Yellow (Yellow) Urine Clarity Clear (Clear) Urine pH 7.5 (5.0-8.0) pH Units Ur Specific [employer] 1.015 (1.010-1.025) Urine Protein Negative (Neg-Trace) mg/dL Urine Glucose (UA) Normal (Normal) mg/dL Urine Ketones Negative (Negative) mg/dL Urine Blood Trace-intact H (Negative) Urine Nitrite Negative (Negative) Urine Bilirubin Negative (Negative) Urine Urobilinogen Normal (Normal) mg/dL Ur Leukocyte Esterase Moderate H (Negative) Urine Microscopic RBC 0-3 (0-3) per hpf Urine Microscopic WBC 5-15 H (0-3) per hpf Ur Squamous Epith Cells Few (None-Few) per lpf Urine Bacteria Few (None-Few) per hpf Hyaline Casts Few (None-Few) per lpf Urine Mucus Few (Few) Ur Culture Indicated? YES A (NO) - Radiology Data Radiology results reviewed: Yes I reviewed the patient's radiology results. EXAMINATION: ONE XRAY VIEW OF THE CHEST 11/02/2018 8:10 pm COMPARISON: 10/14/2018 HISTORY: ORDERING SYSTEM PROVIDED HISTORY: hypothermia FINDINGS: Heart and mediastinal contours are unremarkable. No focal infiltrate. No pneumothorax. Chronic deformity of the left mid to lower ribs is suggested. No acute bony abnormality detected. No free air. XR/XR chest 1V portable IMPRESSION: No acute abnormality detected. D/ / Ralph Maldonado MD / Ralph Maldonado MD Interpreting Provider: Ralph Maldonado MD - EKG Data EKG #1 EKG attestation: Yes I reviewed and interpreted this EKG. EKG results narrative: EKG interpreted by myself as sinus rhythm with rate of 54 QTc of [address] elevation
[2018-11-02 23:28] LABS: Basophils # 0.1 K/mcL (0.0-0.2); Basophils % 0.7 %; Eosinophils # 0.3 K/mcL (0.0-0.6); Eosinophils % 3.7 %; Hematocrit 46.1 % (35.3-44.9); Hemoglobin 15.2 g/dL (11.5-15.4); Immature Granulocytes % 0.1 % (0-4); Lymphocytes # 3.7 K/mcL (0.6-4.6); Lymphocytes % 52.4 %; Mean Corpuscular Volume 97.1 fL (83.0-100.0); Mean Platelet Volume 11.5 fL (9.4-12.4); Monocytes # 0.4 K/mcL (0.0-1.3); Monocytes % 5.8 %; Neutrophils # 2.6 K/mcL (1.6-8.9); Platelet Count 277 K/mcL (140-400); Red Blood Count 4.75 M/mcL (3.82-4.97); Red Cell Distribution Width 14.6 % (11.5-14.5); Segmented Neutrophils % 37.3 %; White Blood Count 7.1 K/mcL (4.3-11.1)
[2018-11-02 23:38] LABS: VBG HCO3 26 mEq/L (21-27); VBG PCO2 35 mmHg (41-51); VBG PH 7.47 pH Units (7.32-7.42); VBG PO2 194 mmHg (25-50)
[2018-11-03 00:29] LABS: Prothrombin Time 11.7 Seconds (9.4-12.1)
[2018-11-03 00:32] LABS: Activated Partial Thrombo Time 41.5 Seconds (26.0-36.0)
[2018-11-03 00:38] LABS: Bilirubin,Urine Negative (Negative); Blood,Urine Trace-intact (Negative); Clarity,Urine Clear (Clear); Color,Urine Yellow (Yellow); Glucose,Urine (UA) Normal (Normal); Ketones,Urine Negative (Negative); Leukocyte Esterase,Urine Moderate (Negative); Nitrite,Urine Negative (Negative); PH,Urine 7.5 pH Units (5.0-8.0); Protein,Urine Negative (Neg-Trace); Specific Gravity,Urine 1.015 (1.010-1.025); Urobilinogen,Urine Normal (Normal)
[2018-11-03 00:41] LABS: Alanine Aminotransferase 38 Units/L (7-52); Albumin 3.2 g/dL (3.5-5.7); Alkaline Phosphatase 127 Units/L (34-104); Aspartate Amino Transferase 24 Units/L (13-39); BUN/Creatinine Ratio 26 (6-26); Bilirubin,Direct 0.1 mg/dL (0.0-0.2); Bilirubin,Indirect 0.1 mg/dL (0.0-1.2); Bilirubin,Total 0.2 mg/dL (0.3-1.0); Blood Urea Nitrogen 28 mg/dL (6-20); Calcium 9.4 mg/dL (8.6-10.3); Carbon Dioxide 27 mEq/L (23-29); Chloride 109 mEq/L (98-107); Globulin 3.3 g/dL (2.4-3.5); Glucose 93 mg/dL (70-105); Magnesium 2.6 mg/dL (1.6-2.6); Osmolality,Calculated 299 (280-300); Phosphorous 4.2 mg/dL (2.7-4.5); Potassium 3.9 mEq/L (3.5-5.1); Sodium 142 mEq/L (136-145); Total Protein 6.5 g/dL (6.4-8.9); Troponin I < 0.03 ng/mL (< 0.04); eGFR For African Americans > 60 (> 60); eGFR For Non-African Americans 57 (> 60)
[2018-11-03 00:46] LABS: Bacteria,Urine Few per hpf (None-Few); Hyaline Casts,Urine Few per lpf (None-Few); Mucus,Urine Few (Few); RBC,Urine 0-3 per hpf (0-3); Squamous Epithelial Cell,Urine Few per lpf (None-Few)
[2018-11-03] MEDS ORDERED: MOM Conc 10 ML UD.LIQ PO PRN (01:49)
[2018-11-03] MEDS ORDERED: Naloxone 0.4 MG/ML INJ IVP PRN (01:49)
[2018-11-03] MEDS ORDERED: Ketorolac 30 MG/ML VIAL IVP PRN (01:49)
[2018-11-03] MEDS ORDERED: Mag Hydrox/Al Hydrox/Simeth 30 ML UDC PO PRN (01:49)
[2018-11-03] MEDS ORDERED: Albuterol 2.5 MG/3 ML NEBULIZER IH PRN (01:49)
[2018-11-03] MEDS: 0.9 % Sodium Chloride 1,000 ML IVC SCH ×3 (02:20→12:43)
[2018-11-03] MEDS: Baclofen 10 MG TABLET GTUBE SCH ×3 (09:00→20:49)
[2018-11-03] MEDS: lamoTRIgine 100 MG TABLET GTUBE SCH ×2 (09:00→20:50)
[2018-11-03] MEDS: Artificial Tears SOLN 15 ML BOTTLE OP SCH (09:00)
[2018-11-03] MEDS: Loratadine 10 MG TABLET GTUBE SCH (09:00)
--- NOTE | 2018-11-03 13:29 | Electrocardiograph Report ---
[place] [id number] Test Date: 2018-11-02 Pat Name: Jeannine Noel Department: EDP-14 Room: [facility] Gender: F Geriatric Case Manager: : [id number] Requested By: Samantha Millard Order Number: [id number] Reading MD: Michael Zuleta Measurements Intervals [place] Rate: 54 P: 31 VA: 185 QRS: 45 QRSD: 91 T: 17 QT: 478 QTc: 453 Interpretive Statements Sinus bradycardia Electronically Signed On 11-03-2018 13:28:14 EDT by Michael Zuleta
--- NOTE | 2018-11-03 14:36 | Internal Med History&Physical ---
Date of Encounter: 11/03/18 Time of Encounter: 15:15 Assessment and Plan (1) Hypothermia Current visit: No Status: Acute Temperature was 94.3 in emergency room. It has now risen to 99.2. Continue to monitor. Qualifiers: Encounter type: initial encounter Qualified Code(s): T68.XXXA - Hypothermia, initial encounter (2) Azotemia Current visit: No Status: Acute BUN and creatinine were 28 and 1.06 respectively with estimated GFR 57. IV fluids will be given and renal indices monitored. (3) UTI (urinary tract infection) Current visit: Yes Status: Acute She was given a dose of IV Levaquin in emergency room. Will continue this with addition of lactobacillus. Qualifiers: Urinary tract infection type: site unspecified Hematuria presence: without hematuria Qualified Code(s): N39.0 - Urinary tract infection, site not specified Internal Medicine - H&P: HPI Chief complaint: Hypothermia Admitted From: Emergency Dept Plans for Post Hospital Care: Home History of present illness: Ms. Noel is a 43 year old female who was brought [facility] ER from a [facility] for evaluation after staff found her to have low-temperature. She was diagnosed with UTI within the last 24 hours and was started on Macrobid. She was evaluated in emergency room and felt to have possible UTI. She had mild azotemia. She was admitted to [facility] [place] [place] floor for ongoing care needs. 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 She was hospitalized at [facility] 7 times since March 2017 for similar problems. There is no documented record of her having seen infectious disease or neurologist to further evaluate. Head CT 07/13/2018 showed chronic severe atrophy/hydrocephalus. 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 kyphosis. scoliosis. obesity. fibrocystic breast. contractures. anemia Psychiatric history: no psych history - Past Surgical History Surgical History: other (G-tube, Rosita fundoplication) Additional surgical history: G-tube placement, hx of fractures radail wrist, right tibia, proximal right tibia, right humerous head, left humeral neck - Social History Smoking Status: Never smoker Smokeless Tobacco Status: No Alcohol use: none Drug use: none Internal Medicine - H&P: Meds Atropine 1% Opth Drops 1 - 2 drp SL Q4-6H PRN 04/02/15 [History] lamoTRIgine [Lamictal] 100 mg GTUBE QAM 04/02/15 [History] Albuterol Neb [Proventil Neb] 2.5 mg IH Q4H PRN 05/05/15 [History] DiphenhydraMINE [Benadryl] 25 mg GTUBE Q6HR PRN 02/17/16 [History] Loperamide [Imodium] 2 mg PO DAILY PRN 02/17/16 [History] Lovastatin [Mevacor] 20 mg GTUBE HS 02/17/16 [History] Pseudoephedrine [Sudafed] 60 mg PO Q6H PRN 02/17/16 [History] Medroxyprogesterone Acetate [Depo-Provera] 150 mg IM [id number] 06/23/16 [History] Acetaminophen [Tylenol] 650 mg GTUBE Q4HR PRN 10/15/16 [History] Docusate [Colace] 100 mg GTUBE BID 10/15/16 [History] Magnesium Hydroxide [Milk of Magnesia] 30 ml GTUBE Q72H PRN 10/15/16 [History] Polyvinyl Alcohol [Artificial Tears] 1 drop OP DAILY 10/15/16 [History] lamoTRIgine [Lamotrigine] 200 mg GTUBE QAM AND QHS 10/17/16 [History] Diazepam [Diastat Acudial] 1 each RC PRN PRN 11/10/16 [History] Ibuprofen [Motrin] 400 mg PO Q4HR PRN 11/10/16 [History] Polyethylene Glycol 3350 [Gavilax] 17 gm GTUBE QPM 11/10/16 [History] Saliva Stimulant [Biotene Moisturizing Rinse] 0 ml GTUBE Q8H 11/10/16 [History] Calcitonin,[place],Synthetic [Calcitonin-Spangle] 200 units NS DAILY 04/15/17 [History] Loratadine [Allergy Relief] 10 mg GTUBE DAILY 04/15/17 [History] Baclofen [Lioresal] 20 mg GTUBE TID 07/17/17 [History] Multivit/Ca/Min/Fe/FA [Thera M Plus] 1 each PO DAILY 02/28/18 [History] Rivaroxaban [Xarelto] 15 mg PO BID 21 Days #42 tablet 02/28/18 [Rx] Lactobacillus [Culturelle] 1 each PO BID #6 cap.sprink 07/15/18 [Rx] Nitrofurantoin (BID) [Macrobid] 100 mg PO BID #6 capsule 07/15/18 [Rx] Allergy/AdvReac Type Severity Reaction Status Date / Time No Known Allergies Allergy Verified 02/28/18 13:56 All Systems PM: A 10-system review of systems was performed and is negative for pertinent findings except as documented above in the HPI. Review of systems: Review of systems from the June 2018 [facility] hospitalization were reviewed and revised as below. Gen.: Her weight was 44.18 kg April 2015. Recorded weight June 2018 was 68 kg . Weight on admission last evening was 58.5.3 kilograms Cardiovascular: There is no known hypertension heart failure angina DVT or pulmo nary embolus Respiratory: Smoking history is not known. She does not have documented chronic lung disease in available records. GI: She has GERD by history. There is no known disorder of her liver g allbladder or exocrine pancreas. She had fecal impaction requiring disimpaction during her April 2015 hospitalization. : There is no mention of hematuria dysuria or kidney stones. She has had f requent UTIs. She had urinary retention during a previous hospitalization requiring Cheek catheter insertion briefly. Endocrine: There is no known diabetes thyroid disease or hyperlipidemia Hematology/oncology: She has a history of anemia that has resolved. She does not have other known blood disorders or internal malignancies Neurologic: She has a diagnoses of seizure disorder, encephalopathy, cortical blindness, and optic atrophy. Psychiatric: She has no known anxiety depression or other mental health issues Musculoskeletal: She has had fractures of the right radius, right tibia, right humeral head, and left humerus neck. 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 - Constitutional Vitals: Temp Pulse Resp BP Pulse Ox 99.2 F 127 20 113/69 88 11/03/18 14:07 11/03/18 14:07 11/03/18 14:07 11/03/18 14:07 11/03/18 14:07 Exam: Gen.: She is a well-developed well-nourished female resting comfortably in bed who appears in no acute distress HEENT: Head is atraumatic and normal cephalic. Eyes: She has a slightly disconjugate gaze. She has cortical blindness. Mouth: Mucosa is dry but she is mouth breathing Neck: There is no thyromegaly or adenopathy noted. Heart: Regular without murmurs gallops or ectopics Lungs: No wheezes or crackles are heard. Abdomen: A G-tube is in place in the epigastric area. No masses or guarding are noted. Extremities: She has external rotation of her legs. Her feet are small and deformed. She has flexion contractures of her wrists and hands. There is no p itting edema of her ankles. Neurologic: Mental status: She does not follow commands or respond to voice or light touch. Motor: She does not move spontaneously. No further neurologic testing is attempted. Skin: Warm and dry Internal Med - H&P Results - Labs CBC & Chem 7: 11/02/18 23:15 11/02/18 23:45 Labs: Short CBC 11/02/18 Range/Units 23:15 WBC 7.1 (4.3-11.1) K/mcL Hgb 15.2 (11.5-15.4) g/dL Hct 46.1 H (35.3-44.9) % Plt Count 277 (140-400) K/mcL Neutrophils # 2.6 (1.6-8.9) K/mcL BMP 11/02/18 23:45 Sodium 142 Potassium 3.9 Chloride 109 H Carbon Dioxide 27 BUN 28 H Creatinine 1.06 Glucose 93 Calcium 9.4 Cardiac Enzymes 11/02/18 Range/Units 23:45 Troponin I < 0.03 (< 0.04) ng/mL Liver Function 11/02/18 Range/Units 23:45 Total Bilirubin 0.2 L (0.3-1.0) mg/dL Direct Bilirubin 0.1 (0.0-0.2) mg/dL AST 24 (13-39) Units/L ALT 38 (7-52) Units/L Alkaline Phosphatase 127 H (34-104) Units/L Albumin 3.2 L (3.5-5.7) g/dL Urine 11/03/18 Range/Units 00:12 Urine Color Yellow (Yellow) Urine Clarity Clear (Clear) Urine pH 7.5 (5.0-8.0) pH Units Ur Specific [place] 1.015 (1.010-1.025) Urine Protein Negative (Neg-Trace) mg/dL Urine Glucose (UA) Normal (Normal) mg/dL - ABG Interpretation ABG results: 11/02/18 11/02/18 23:25 23:34 ABG pH 7.48 H ABG pCO2 36 ABG pO2 195 H ABG HCO3 27 ABG Total CO2 28 H ABG O2 Saturation 100 H ABG Base Excess 3 VBG pH 7.47 H VBG pCO2 35 L VBG pO2 194 H VBG HCO3 26 - Impressions ITS Impressions Chest X-Ray 11/02/18 22:52 IMPRESSION: No acute abnormality detected. D/ / Ralph Maldonado MD / Ralph Maldonado MD Interpreting Provider: Ralph Maldonado MD
[2018-11-03] MEDS: 0.45 % Sodium Chloride w/KCl 20 MEQ/1,000 ML MLS IVC SCH (15:50)
[2018-11-04 06:18] LABS: Acinetobacter baumannii by PCR Not Detected (Not Detect); Candida albicans by PCR Not Detected (Not Detect); Candida glabrata by PCR Not Detected (Not Detect); Candida krusei by PCR Not Detected (Not Detect); Candida parapsilosis by PCR Not Detected (Not Detect); Candida tropicalis by PCR Not Detected (Not Detect); Enterobacter cloacae Cmplx PCR Not Detected (Not Detect); Enterobacteriaceae by PCR Not Detected (Not Detect); Enterococcus by PCR Not Detected (Not Detect); Escherichia coli by PCR Not Detected (Not Detect); Klebsiella oxytoca by PCR Not Detected (Not Detect); Klebsiella pneumoniae by PCR Not Detected (Not Detect); Proteus by PCR Not Detected (Not Detect); Pseudomonas aeruginosa by PCR Not Detected (Not Detect); Serratia marcescens by PCR Not Detected (Not Detect); Staphylococcus aureus by PCR Not Detected (Not Detect); Staphylococcus by PCR DETECTED (Not Detect); Streptococcus agalactiae(B)PCR Not Detected (Not Detect); Streptococcus by PCR Not Detected (Not Detect); Streptococcus pneumoniae PCR Not Detected (Not Detect); Streptococcus pyogenes (A) PCR Not Detected (Not Detect); mecA Methicillin-Resist Gene DETECTED (Not Detect)
[2018-11-04] MEDS: *HR* Enoxaparin 40 MG/0.4 ML SYRINGE SQ SCH (06:25)
[2018-11-04 07:36] LABS: Basophils # 0.1 K/mcL (0.0-0.2); Basophils % 0.7 %; Eosinophils # 0.2 K/mcL (0.0-0.6); Eosinophils % 1.9 %; Hematocrit 42.5 % (35.3-44.9); Immature Granulocytes % 0.1 % (0-4); Lymphocytes # 3.1 K/mcL (0.6-4.6); Lymphocytes % 37.2 %; Mean Corpuscular HGB Conc 32.9 g/dL (31.6-35.5); Mean Corpuscular Hemoglobin 32.6 pg (28.0-33.3); Mean Corpuscular Volume 99.1 fL (83.0-100.0); Monocytes # 0.4 K/mcL (0.0-1.3); Monocytes % 4.6 %; Neutrophils # 4.6 K/mcL (1.6-8.9); Platelet Count 217 K/mcL (140-400); Red Blood Count 4.29 M/mcL (3.82-4.97); Red Cell Distribution Width 14.7 % (11.5-14.5); Segmented Neutrophils % 55.5 %; White Blood Count 8.3 K/mcL (4.3-11.1)
[2018-11-04] MEDS ORDERED: Aminoglycoside Consult 1 EACH MC ONE (08:00)
[2018-11-04] MEDS: 0.45 % Sodium Chloride w/KCl 20 MEQ/1,000 ML MLS IVC SCH (08:03)
[2018-11-04] MEDS: Loratadine 10 MG TABLET GTUBE SCH (08:04)
[2018-11-04] MEDS: lamoTRIgine 100 MG TABLET GTUBE SCH ×2 (08:04→20:31)
[2018-11-04] MEDS: Artificial Tears SOLN 15 ML BOTTLE OP SCH (08:05)
[2018-11-04] MEDS: Baclofen 10 MG TABLET GTUBE SCH ×3 (08:05→20:31)
[2018-11-04 09:52] LABS: BUN/Creatinine Ratio 16 (6-26); Blood Urea Nitrogen 14 mg/dL (6-20); Calcium 9.2 mg/dL (8.6-10.3); Carbon Dioxide 20 mEq/L (23-29); Chloride 112 mEq/L (98-107); Glucose 63 mg/dL (70-105); Osmolality,Calculated 289 (280-300); Potassium 4.3 mEq/L (3.5-5.1); Sodium 140 mEq/L (136-145); eGFR For African Americans > 60 (> 60); eGFR For Non-African Americans > 60 (> 60)
--- NOTE | 2018-11-04 12:59 | Internal Med Progress Note ---
Date of Encounter: 11/04/18 Time of Encounter: 12:52 - Assessment and plan (1) Hypothermia Current Visit: No Status: Acute Assessment and plan: November 04. Temperature has normalized. Continue antibiotics and probiotics. Qualifiers: Encounter type: initial encounter Qualified Code(s): T68.XXXA - Hypothermia, initial encounter (2) MRSA bacteremia Current Visit: Yes Status: Acute Assessment and plan: November 04. 2/2 blood cultures showing MRSA. IV vancomycin has been started. She will continue antibiotics for 4 weeks after cultures are negative. (3) Azotemia Current Visit: No Status: Acute Assessment and plan: November 04. BUN and creatinine have normalized to 14 and 0.89 respectively with estimated GFR > 60. Discontinue IV fluids. (4) UTI (urinary tract infection) Current Visit: Yes Status: Acute Assessment and plan: November 04. Urine culture report pending. Continue Levaquin and lactobacillus. Qualifiers: Urinary tract infection type: site unspecified Hematuria presence: without hematuria Qualified Code(s): N39.0 - Urinary tract infection, site not specified - Subjective Interval history: November 04. No new problems have arisen. - Constitutional Vitals: Temp Pulse Resp BP Pulse Ox 96.1 F L 60 17 152/92 98 11/04/18 06:54 11/04/18 06:54 11/04/18 06:54 11/04/18 06:54 11/04/18 06:54 Exam: She is resting comfortably in bed and appears in no acute distress. Heart is regular without murmurs gallops or ectopics. Lungs are clear anteriorly. Extremities show no pitting edema. I reviewed her medications and lab results. Internal Medicine: Result - Labs CBC & Chem 7: 11/04/18 07:20 11/04/18 07:20 Labs: Short CBC 11/02/18 11/04/18 Range/Units 23:15 07:20 WBC 7.1 8.3 (4.3-11.1) K/mcL Hgb 15.2 14.0 (11.5-15.4) g/dL Hct 46.1 H 42.5 (35.3-44.9) % Plt Count 277 217 (140-400) K/mcL Neutrophils # 2.6 4.6 (1.6-8.9) K/mcL BMP 11/04/18 07:20 Sodium 140 Potassium 4.3 Chloride 112 H Carbon Dioxide 20 L BUN 14 Creatinine 0.89 Glucose 63 L Calcium 9.2 - ABG Interpretation ABG results: ABG ABG pH 7.48 pH Units (7.32-7.45) H 11/02/18 23:25 ABG pCO2 36 mmHg (35-45) 11/02/18 23:25 ABG pO2 195 mmHg (85-104) H 11/02/18 23:25 ABG O2 Saturation 100 % (95-98) H 11/02/18 23:25 PT/INR, D-dimer PT 11.7 Seconds (9.4-12.1) 11/02/18 23:45 Consult Discharge Plan - Plan Referrals: Nadira Glynn MD [Primary Care Provider] - 1 week
[2018-11-04] MEDS: levoFLOXacin 500 MG/100 ML 500 MG/100 ML BAG IVPB SCH (15:00)
[2018-11-04] MEDS: Lactobacillus 1 EACH CAP.SPRINK PO SCH (20:31)
[2018-11-05] MEDS: *HR* Enoxaparin 40 MG/0.4 ML SYRINGE SQ SCH (06:22)
[2018-11-05] MEDS: Lactobacillus 1 EACH CAP.SPRINK PO SCH ×2 (08:51→20:10)
[2018-11-05] MEDS: Baclofen 10 MG TABLET GTUBE SCH ×3 (08:52→20:10)
[2018-11-05] MEDS: lamoTRIgine 100 MG TABLET GTUBE SCH ×2 (08:52→20:10)
[2018-11-05] MEDS: Artificial Tears SOLN 15 ML BOTTLE OP SCH (09:21)
--- NOTE | 2018-11-05 14:35 | Internal Med Progress Note ---
Date of Encounter: 11/05/18 Time of Encounter: 14:27 - Assessment and plan (1) Hypothermia Current Visit: No Status: Acute Assessment and plan: November 04. Temperature has normalized. Continue antibiotics and probiotics. Qualifiers: Encounter type: initial encounter Qualified Code(s): T68.XXXA - Hypothermia, initial encounter (2) MRSA bacteremia Current Visit: Yes Status: Acute Assessment and plan: November 04. 2/ blood cultures showing MRSA. IV vancomycin has been started. She will continue antibiotics for 4 weeks after cultures are negative. November 05. Blood cultures were redrawn today. Continue IV vancomycin. Final sensitivity report pending. (3) Azotemia Current Visit: No Status: Acute Assessment and plan: November 04. BUN and creatinine have normalized to 14 and 0.89 respectively with estimated GFR > 60. Discontinue IV fluids. (4) UTI (urinary tract infection) Current Visit: Yes Status: Acute Assessment and plan: November 04. Urine culture report pending. Continue Levaquin and lactobacillus. November 14. Urine culture shows Enterococcus faecalis. Discontinue Levaquin and start Augmentin. Continue lactobacillus. Qualifiers: Urinary tract infection type: site unspecified Hematuria presence: without hematuria Qualified Code(s): N39.0 - Urinary tract infection, site not specified - Subjective Interval history: November 04. No new problems have arisen. November 05. No new problems have arisen. - Constitutional Vitals: Temp Pulse Resp BP Pulse Ox 97.9 F 96 18 135/86 97 11/05/18 07:12 11/05/18 07:12 11/05/18 07:12 11/05/18 07:12 11/05/18 07:12 Exam: She is resting comfortably in bed. Extremities show no edema. Heart is regular without murmurs gallops or ectopics. Lungs are clear anteriorly. I reviewed her medications and lab results. Internal Medicine: Result - Labs CBC & Chem 7: 11/04/18 07:20 11/04/18 07:20 - ABG Interpretation ABG results: ABG ABG pH 7.48 pH Units (7.32-7.45) H 11/02/18 23:25 ABG pCO2 36 mmHg (35-45) 11/02/18 23:25 ABG pO2 195 mmHg (85-104) H 11/02/18 23:25 ABG O2 Saturation 100 % (95-98) H 11/02/18 23:25 PT/INR, D-dimer PT 11.7 Seconds (9.4-12.1) 11/02/18 23:45 Consult Discharge Plan - Plan Referrals: Nadira Glynn MD [Primary Care Provider] - 1 week
[2018-11-05] MEDS ORDERED: Amoxicillin/Clavulanate 200 MG/5 ML UDC PO SCH (15:00)
[2018-11-05] MEDS: levoFLOXacin 500 MG/100 ML 500 MG/100 ML BAG IVPB SCH (15:56)
[2018-11-06] MEDS: Amoxicillin/Clavulanate 200 MG/5 ML UDC PO SCH ×2 (02:45→15:09)
[2018-11-06] MEDS: *HR* Enoxaparin 40 MG/0.4 ML SYRINGE SQ SCH (06:25)
[2018-11-06] MEDS: lamoTRIgine 100 MG TABLET GTUBE SCH ×2 (07:35→21:31)
[2018-11-06] MEDS: Artificial Tears SOLN 15 ML BOTTLE OP SCH (07:36)
[2018-11-06] MEDS: Baclofen 10 MG TABLET GTUBE SCH ×3 (07:36→21:32)
[2018-11-06] MEDS: Lactobacillus 1 EACH CAP.SPRINK PO SCH ×2 (07:36→21:32)
--- NOTE | 2018-11-06 14:56 | Internal Med Progress Note ---
Date of Encounter: 11/06/18 Time of Encounter: 14:47 - Assessment and plan (1) Hypothermia Current Visit: No Status: Acute Assessment and plan: November 04. Temperature has normalized. Continue antibiotics and probiotics. Qualifiers: Encounter type: initial encounter Qualified Code(s): T68.XXXA - Hypothermia, initial encounter (2) Bacteremia due to Staphylococcus Current Visit: Yes Status: Acute Assessment and plan: . Blood cultures show methicillin resistant Staphylococcus hemolyticus rather than MRSA. Continue IV vancomycin until blood cultures are negative then change to oral linezolid. (3) Azotemia Current Visit: No Status: Acute Assessment and plan: November 04. BUN and creatinine have normalized to 14 and 0.89 respectively with estimated GFR > 60. Discontinue IV fluids. (4) UTI (urinary tract infection) Current Visit: Yes Status: Acute Assessment and plan: November 04. Urine culture report pending. Continue Levaquin and lactobacillus. November 14. Urine culture shows Enterococcus faecalis. Discontinue Levaquin and start Augmentin. Continue lactobacillus. Qualifiers: Urinary tract infection type: site unspecified Hematuria presence: without hematuria Qualified Code(s): N39.0 - Urinary tract infection, site not specified - Subjective Interval history: November 04. No new problems have arisen. November 05. No new problems have arisen. November 06. No new problems have arisen. - Constitutional Vitals: Temp Pulse Resp BP Pulse Ox 97.0 F L 58 18 114/74 97 11/06/18 06:30 11/06/18 06:30 11/06/18 06:30 11/06/18 06:30 11/06/18 06:30 Exam: She is resting comfortably in bed and appears in no acute distress. Heart is regular without murmurs gallops or ectopics. Lungs are clear anteriorly. Extremities show no pitting edema. I reviewed her medications and lab results. Internal Medicine: Result - Labs CBC & Chem 7: 11/04/18 07:20 11/04/18 07:20 - ABG Interpretation ABG results: ABG ABG pH TNP 11/02/18 23:25 ABG pCO2 TNP 11/02/18 23:25 ABG pO2 TNP 11/02/18 23:25 ABG O2 Saturation TNP 11/02/18 23:25 PT/INR, D-dimer PT 11.7 Seconds (9.4-12.1) 11/02/18 23:45 Consult Discharge Plan - Plan Referrals: Nadiar Glynn MD [Primary Care Provider] - 1 week
[2018-11-07] MEDS: Amoxicillin/Clavulanate 200 MG/5 ML UDC PO SCH (03:57)
[2018-11-07] MEDS: *HR* Enoxaparin 40 MG/0.4 ML SYRINGE SQ SCH (06:35)
[2018-11-07 07:27] VITALS: BP 120/80
[2018-11-07] MEDS: Baclofen 10 MG TABLET GTUBE SCH (08:49)
[2018-11-07] MEDS: Artificial Tears SOLN 15 ML BOTTLE OP SCH (08:50)
[2018-11-07] MEDS: Lactobacillus 1 EACH CAP.SPRINK PO SCH (08:50)
[2018-11-07] MEDS: lamoTRIgine 100 MG TABLET GTUBE SCH (08:50)
--- NOTE | 2018-11-07 10:03 | Discharge Summary ---
Orders not resulted at time of discharge: Pending orders 11/05/18 11:40 Culture,Blood [BC] Routine Date of Encounter: 11/07/18 Time of Encounter: 09:45 - Discharge Diagnosis (1) Bacteremia due to Staphylococcus Priority: Primary Status: Acute (2) UTI (urinary tract infection) Priority: Secondary Status: Acute Qualifiers: Urinary tract infection type: site unspecified Hematuria presence: without hematuria Qualified Code(s): N39.0 - Urinary tract infection, site not s pecified (3) Hypothermia Priority: Secondary Status: Resolved Qualifiers: Encounter type: initial encounter Qualified Code(s): T68.XXXA - Hypothermia, initial encounter (4) Azotemia Priority: Secondary Status: Resolved Hospital course: Ms. Noel is a 43 year old female who was brought [facility] ER from a [facility] for evaluation after staff found her to have low-temperature. She was diagnosed with UTI within the last 24 hours and was started on Macrobid. She was evaluated in emergency room and felt to have possible UTI. She had mild azotemia. She was admitted to [facility] for ongoing care needs. Initial orders were written by the emergency room physician. I saw her on November 03 and performed a history and physical. She was started empirically on antibiotics and probiotics. 06/30 blood cultures returned showing Staphylococcus hemolyticus with methicillin resistant properties. Repeat blood cultures were drawn November 05 with luminary reports showing no growth at time of discharge. She will continue with antibiotic (linezolid) and probiotic for 4 weeks. Urine culture grew Enterococcus faecalis. She was treated with Augmentin during her hospital stay. She will not continue antibiotics for this at discharge. Temperature normalized within the first 24 hours and remained normal throughout remainder of her hospital stay. BUN and creatinine normalized to 14 and 0.89 respectively by November 04. On November 07 she was stable for discharge back to the [facility]. She will follow with Dr. Glynn. - Time Spent with Patient Total time spent providing and/or coordinating discharge services: - Discharge Medications Prescriptions: New Lactobacillus [Culturelle] 1 each PO BID #56 cap.sprink Linezolid 600 mg PO BID #56 tablet Continued lamoTRIgine [Lamictal] 100 mg GTUBE QAM Atropine 1% Opth Drops 1 - 2 drp SL Q4-6H PRN PRN Reason: Secretions Albuterol Neb [Proventil Neb] 2.5 mg IH Q4H PRN PRN Reason: Shortness Of Breath DiphenhydraMINE [Benadryl] 25 mg GTUBE Q6HR PRN PRN Reason: Itching Lovastatin [Mevacor] 20 mg GTUBE HS Pseudoephedrine [Sudafed] 60 mg PO Q6H PRN PRN Reason: Allergy Symptoms Loperamide [Imodium] 2 mg PO DAILY PRN PRN Reason: Diarrhea Medroxyprogesterone Acetate [Depo-Provera] 150 mg IM [id number] Docusate [Colace] 100 mg GTUBE BID Polyvinyl Alcohol [Artificial Tears] 1 drop OP DAILY Magnesium Hydroxide [Milk of Magnesia] 30 ml GTUBE Q72H PRN PRN Reason: Constipation Acetaminophen [Tylenol] 650 mg GTUBE Q4HR PRN PRN Reason: Fever/Pain lamoTRIgine [Lamotrigine] 200 mg GTUBE QAM AND QHS Saliva Stimulant [Biotene Moisturizing Rinse] 0 ml GTUBE Q8H Ibuprofen [Motrin] 400 mg PO Q4HR PRN PRN Reason: Pain Diazepam [Diastat Acudial] 1 each RC PRN PRN PRN Reason: Seizures Calcitonin,[place],Synthetic [Calcitonin-[place]] 200 units NS DAILY Baclofen [Lioresal] 20 mg GTUBE TID Multivit/Ca/Min/Fe/FA [Thera M Plus] 1 each PO DAILY Rivaroxaban [Xarelto] 15 mg PO BID 21 Days #42 tablet Lactobacillus [Culturelle] 1 each PO BID #6 cap.sprink Discontinued Polyethylene Glycol 3350 [Gavilax] 17 gm GTUBE QPM Loratadine [Allergy Relief] 10 mg GTUBE DAILY Nitrofurantoin (BID) [Macrobid] 100 mg PO BID #6 capsule Home Medications: Atropine 1% Opth Drops 1 - 2 drp SL Q4-6H PRN 04/02/15 [History] lamoTRIgine [Lamictal] 100 mg GTUBE QAM 04/02/15 [History] Albuterol Neb [Proventil Neb] 2.5 mg IH Q4H PRN 05/05/15 [History] DiphenhydraMINE [Benadryl] 25 mg GTUBE Q6HR PRN 02/17/16 [History] Loperamide [Imodium] 2 mg PO DAILY PRN 02/17/16 [History] Lovastatin [Mevacor] 20 mg GTUBE HS 02/17/16 [History] Pseudoephedrine [Sudafed] 60 mg PO Q6H PRN 02/17/16 [History] Medroxyprogesterone Acetate [Depo-Provera] 150 mg IM [id number] 06/23/16 [History] Acetaminophen [Tylenol] 650 mg GTUBE Q4HR PRN 10/15/16 [History] Docusate [Colace] 100 mg GTUBE BID 10/15/16 [History] Magnesium Hydroxide [Milk of Magnesia] 30 ml GTUBE Q72H PRN 10/15/16 [History] Polyvinyl Alcohol [Artificial Tears] 1 drop OP DAILY 10/15/16 [History] lamoTRIgine [Lamotrigine] 200 mg GTUBE QAM AND QHS 10/17/16 [History] Diazepam [Diastat Acudial] 1 each RC PRN PRN 11/10/16 [History] Ibuprofen [Motrin] 400 mg PO Q4HR PRN 11/10/16 [History] Saliva Stimulant [Biotene Moisturizing Rinse] 0 ml GTUBE Q8H 11/10/16 [History] Calcitonin,[place],Synthetic [Calcitonin-[place]] 200 units NS DAILY 04/15/17 [History] Baclofen [Lioresal] 20 mg GTUBE TID 07/17/17 [History] Multivit/Ca/Min/Fe/FA [Thera M Plus] 1 each PO DAILY 02/28/18 [History] Rivaroxaban [Xarelto] 15 mg PO BID 21 Days #42 tablet 02/28/18 [Rx] Lactobacillus [Culturelle] 1 each PO BID #6 cap.sprink 07/15/18 [Rx] Lactobacillus [Culturelle] 1 each PO BID #56 cap.sprink 11/07/18 [Rx] Linezolid 600 mg PO BID #56 tablet 11/07/18 [Rx] Allergies/Adverse Reactions: Allergy/AdvReac Type Severity Reaction Status Date / Time No Known Allergies Allergy Verified 02/28/18 13:56 Date of admission: 11/03/18 15:35 Primary care physician: Nadira Glynn Consults: 11/03/18 01:57 Consult to Nutrition [CONS] Routine Comment: G-TUBE Consulting Provider: NUTRITION Reason for Dietary Consult: MST Score Consult to Primary Therapist [CONS] Routine Reason for SW Consult: [facility] - Constitutional Vitals: Temp Pulse Resp BP Pulse Ox 97.0 F L 59 22 120/80 99 11/07/18 07:21 11/07/18 07:21 11/07/18 07:21 11/07/18 07:21 11/07/18 07:21 - Patient Status Disposition: Home, Self-Care Condition: Good - Discharge Instructions Follow Up With: Nadira Glynn MD [Primary Care Provider] - 1 week - Diet and Activity Activity: resume usual activities as tolerated Diet: advance to your usual diet
== END 2018-11-07 13:59 | disposition home or self-care (01) | DRG 463 ==
LOC: INPPIK 22:36 → EMEROOPIK 22:36 → INPPIK 11-03 01:47
PROVIDERS: ADMIT Internal Medicine; ATTEND Internal Medicine

== ENCOUNTER 2019-04-06 16:58 | Observation (INO) ==
[2019-04-06 17:16] LABS: Bilirubin,Urine Negative (Negative); Blood,Urine Small (Negative); Clarity,Urine Slightly Cloudy (Clear); Color,Urine Yellow (Yellow); Glucose,Urine (UA) Normal (Normal); Ketones,Urine Negative (Negative); Leukocyte Esterase,Urine Moderate (Negative); Nitrite,Urine Negative (Negative); Protein,Urine Negative (Neg-Trace); Specific Gravity,Urine 1.015 (1.010-1.025); Urobilinogen,Urine Normal (Normal)
[2019-04-06 17:44] LABS: Basophils # 0.1 K/mcL (0.0-0.2); Basophils % 0.5 %; Eosinophils # 0.4 K/mcL (0.0-0.6); Eosinophils % 3.7 %; Hematocrit 48.4 % (35.3-44.9); Hemoglobin 16.1 g/dL (11.5-15.4); Immature Granulocytes % 0.1 % (0-4); Lymphocytes # 3.4 K/mcL (0.6-4.6); Lymphocytes % 34.9 %; Mean Corpuscular HGB Conc 33.3 g/dL (31.6-35.5); Mean Corpuscular Hemoglobin 32.5 pg (28.0-33.3); Mean Corpuscular Volume 97.6 fL (83.0-100.0); Mean Platelet Volume 11.4 fL (9.4-12.4); Monocytes # 0.6 K/mcL (0.0-1.3); Monocytes % 6.4 %; Neutrophils # 5.3 K/mcL (1.6-8.9); Platelet Count 222 K/mcL (140-400); Red Blood Count 4.96 M/mcL (3.82-4.97); Red Cell Distribution Width 14.6 % (11.5-14.5); Segmented Neutrophils % 54.4 %; White Blood Count 9.7 K/mcL (4.3-11.1)
[2019-04-06 17:48] LABS: Bacteria,Urine Moderate per hpf (None-Few); RBC,Urine 0-3 per hpf (0-3); Squamous Epithelial Cell,Urine Few per lpf (None-Few); WBC,Urine 30-50 per hpf (0-3)
[2019-04-06 18:05] LABS: Calcium 10.5 mg/dL (8.6-10.3); Potassium 4.4 mEq/L (3.5-5.1)
[2019-04-06] MEDS ORDERED: Furosemide 20 MG/2 ML VIAL IVP ONE (18:08)
[2019-04-06] MEDS ORDERED: cefTRIAXone 1,000 MG in Water for inj. (sterile) 10 ML IVP ONE (18:08)
[2019-04-06] MEDS ORDERED: MAGNESIUM HYDROXIDE GTUBE PRN (19:57)
[2019-04-06] MEDS ORDERED: diazePAM 10 MG/2 ML SYRINGE IV PRN (19:57)
[2019-04-06] MEDS ORDERED: Acetaminophen 325 MG TABLET PO PRN (21:37)
[2019-04-06] MEDS ORDERED: Albuterol 2.5 MG/3 ML NEBULIZER IH PRN (21:39)
[2019-04-06] MEDS ORDERED: Atropine Sulfate 1% 40 DROP/2 ML BOTTLE SL PRN (23:53)
[2019-04-07] MEDS: Docusate Oral Soln 100 MG/10 ML UDC GTUBE SCH ×3 (00:26→19:50)
[2019-04-07] MEDS: Baclofen 10 MG TABLET GTUBE SCH ×4 (00:27→19:50)
[2019-04-07] MEDS ORDERED: MOM Conc 10 ML UD.LIQ GTUBE PRN (09:30)
[2019-04-07] MEDS: Artificial Tears SOLN 15 ML BOTTLE OP SCH (10:08)
[2019-04-07] MEDS: Potassium Chloride Elixir 20 MEQ/15 ML UDC PO SCH (10:08)
[2019-04-07] MEDS: Multivit/Ca/Min/Fe/FA 1 TAB TABLET PO SCH (10:08)
[2019-04-07] MEDS: lamoTRIgine 100 MG TABLET GTUBE SCH ×2 (10:08→16:40)
[2019-04-08 07:17] LABS: Basophils # 0.1 K/mcL (0.0-0.2); Basophils % 0.8 %; Eosinophils # 0.3 K/mcL (0.0-0.6); Eosinophils % 5.2 %; Hematocrit 43.2 % (35.3-44.9); Immature Granulocytes % 0.2 % (0-4); Lymphocytes # 3.1 K/mcL (0.6-4.6); Lymphocytes % 51.3 %; Mean Corpuscular HGB Conc 32.4 g/dL (31.6-35.5); Mean Corpuscular Hemoglobin 31.9 pg (28.0-33.3); Mean Corpuscular Volume 98.4 fL (83.0-100.0); Mean Platelet Volume 11.7 fL (9.4-12.4); Monocytes # 0.3 K/mcL (0.0-1.3); Monocytes % 5.7 %; Neutrophils # 2.2 K/mcL (1.6-8.9); Platelet Count 176 K/mcL (140-400); Red Blood Count 4.39 M/mcL (3.82-4.97); Red Cell Distribution Width 14.6 % (11.5-14.5); Segmented Neutrophils % 36.8 %
[2019-04-08 07:49] LABS: Alanine Aminotransferase 67 Units/L (7-52); Albumin 3.2 g/dL (3.5-5.7); Albumin/Globulin Ratio 0.9 (1.1-2.2); Alkaline Phosphatase 136 Units/L (34-104); Aspartate Amino Transferase 44 Units/L (13-39); BUN/Creatinine Ratio 24 (6-26); Bilirubin,Total 0.3 mg/dL (0.3-1.0); Blood Urea Nitrogen 29 mg/dL (6-20); Calcium 9.3 mg/dL (8.6-10.3); Carbon Dioxide 28 mEq/L (23-29); Chloride 112 mEq/L (98-107); Globulin 3.5 g/dL (2.4-3.5); Glucose 83 mg/dL (70-105); Osmolality,Calculated 305 (280-300); Sodium 145 mEq/L (136-145); Total Protein 6.7 g/dL (6.4-8.9); eGFR For African Americans > 60 (> 60); eGFR For Non-African Americans 50 (> 60)
[2019-04-08] MEDS: lamoTRIgine 100 MG TABLET GTUBE SCH ×2 (08:37→17:21)
[2019-04-08] MEDS: Artificial Tears SOLN 15 ML BOTTLE OP SCH (08:37)
[2019-04-08] MEDS: Docusate Oral Soln 100 MG/10 ML UDC GTUBE SCH ×2 (08:37→21:06)
[2019-04-08] MEDS: Multivit/Ca/Min/Fe/FA 1 TAB TABLET PO SCH (08:37)
[2019-04-08] MEDS: Baclofen 10 MG TABLET GTUBE SCH ×3 (08:37→21:06)
[2019-04-08] MEDS: Potassium Chloride Elixir 20 MEQ/15 ML UDC PO SCH (08:38)
[2019-04-08] MEDS: Piperacillin/Tazobactam 3.375 GM in 0.9 % Sodium Chloride Mini Bag 100 ML IVP SCH (18:04)
[2019-04-08] MEDS: Lactobacillus 1 EACH CAP.SPRINK PO SCH (21:06)
[2019-04-09] MEDS: Piperacillin/Tazobactam 3.375 GM in 0.9 % Sodium Chloride Mini Bag 100 ML IVP SCH ×2 (03:15→12:01)
[2019-04-09 06:34] VITALS: BP 99/63
[2019-04-09 07:07] LABS: Basophils # 0.1 K/mcL (0.0-0.2); Basophils % 0.7 %; Eosinophils # 0.4 K/mcL (0.0-0.6); Eosinophils % 5.1 %; Hematocrit 39.6 % (35.3-44.9); Immature Granulocytes % 0.3 % (0-4); Lymphocytes # 3.8 K/mcL (0.6-4.6); Lymphocytes % 49.1 %; Mean Corpuscular HGB Conc 32.8 g/dL (31.6-35.5); Mean Corpuscular Hemoglobin 32.3 pg (28.0-33.3); Mean Corpuscular Volume 98.3 fL (83.0-100.0); Mean Platelet Volume 11.4 fL (9.4-12.4); Monocytes # 0.5 K/mcL (0.0-1.3); Monocytes % 6.5 %; Platelet Count 170 K/mcL (140-400); Red Blood Count 4.03 M/mcL (3.82-4.97); Red Cell Distribution Width 14.6 % (11.5-14.5); Segmented Neutrophils % 38.3 %; White Blood Count 7.7 K/mcL (4.3-11.1)
[2019-04-09 07:26] LABS: Alanine Aminotransferase 76 Units/L (7-52); Albumin/Globulin Ratio 0.9 (1.1-2.2); Alkaline Phosphatase 117 Units/L (34-104); Aspartate Amino Transferase 46 Units/L (13-39); BUN/Creatinine Ratio 25 (6-26); Bilirubin,Total 0.3 mg/dL (0.3-1.0); Blood Urea Nitrogen 26 mg/dL (6-20); Calcium 8.8 mg/dL (8.6-10.3); Carbon Dioxide 26 mEq/L (23-29); Chloride 109 mEq/L (98-107); Globulin 3.3 g/dL (2.4-3.5); Glucose 75 mg/dL (70-105); Osmolality,Calculated 295 (280-300); Potassium 3.9 mEq/L (3.5-5.1); Sodium 141 mEq/L (136-145); Total Protein 6.3 g/dL (6.4-8.9); eGFR For African Americans > 60 (> 60); eGFR For Non-African Americans 59 (> 60)
[2019-04-09] MEDS: Docusate Oral Soln 100 MG/10 ML UDC GTUBE SCH (07:48)
[2019-04-09] MEDS: Artificial Tears SOLN 15 ML BOTTLE OP SCH (08:32)
[2019-04-09] MEDS: Lactobacillus 1 EACH CAP.SPRINK PO SCH (08:32)
[2019-04-09] MEDS: Multivit/Ca/Min/Fe/FA 1 TAB TABLET PO SCH (08:33)
[2019-04-09] MEDS: Potassium Chloride Elixir 20 MEQ/15 ML UDC PO SCH (08:33)
[2019-04-09] MEDS: lamoTRIgine 100 MG TABLET GTUBE SCH (08:33)
[2019-04-09] MEDS: Baclofen 10 MG TABLET GTUBE SCH (08:33)
[2019-04-09] MEDS ORDERED: Multivitamin Liquid 15 ML UDC GTUBE SCH (09:00)
== END 2019-04-09 12:05 | disposition home or self-care (01) ==
LOC: INPPIK 16:58 → EMEROOPIK 16:58 → INPPIK 19:45
PROVIDERS: ADMIT Internal Medicine; ATTEND Internal Medicine

== ENCOUNTER 2020-10-06 10:01 | Inpatient (IN) ==
[2020-10-06 10:25] LABS: Basophils % 0.4 %; Eosinophils # 0.3 K/mcL (0.0-0.6); Eosinophils % 2.7 %; Hematocrit 46.8 % (35.3-44.9); Hemoglobin 15.4 g/dL (11.5-15.4); Immature Granulocytes % 0.2 % (0-4); Lymphocytes # 3.4 K/mcL (0.6-4.6); Lymphocytes % 35.9 %; Mean Corpuscular HGB Conc 32.9 g/dL (31.6-35.5); Mean Corpuscular Hemoglobin 32.4 pg (28.0-33.3); Mean Corpuscular Volume 98.3 fL (83.0-100.0); Mean Platelet Volume 10.4 fL (9.4-12.4); Monocytes # 0.8 K/mcL (0.0-1.3); Monocytes % 8.8 %; Neutrophils # 4.9 K/mcL (1.6-8.9); Platelet Count 300 K/mcL (140-400); Red Blood Count 4.76 M/mcL (3.82-4.97); Red Cell Distribution Width 17.1 % (11.5-14.5); White Blood Count 9.5 K/mcL (4.3-11.1)
[2020-10-06 10:40] LABS: Bilirubin,Urine Negative (Negative); Blood,Urine Moderate (Negative); Clarity,Urine Slightly Cloudy (Clear); Color,Urine Yellow (Yellow); Glucose,Urine (UA) Normal (Normal); Ketones,Urine Negative (Negative); Leukocyte Esterase,Urine Moderate (Negative); Nitrite,Urine Negative (Negative); Protein,Urine Negative (Neg-Trace); Specific Gravity,Urine 1.015 (1.010-1.025); Urobilinogen,Urine Normal (Normal)
[2020-10-06 10:40] LABS: Alanine Aminotransferase 22 Units/L (7-52); Albumin 3.8 g/dL (3.5-5.7); Alkaline Phosphatase 126 Units/L (34-104); Aspartate Amino Transferase 19 Units/L (13-39); BUN/Creatinine Ratio 35 (6-26); Bilirubin,Total 0.3 mg/dL (0.3-1.0); Blood Urea Nitrogen 26 mg/dL (6-20); Calcium 10.2 mg/dL (8.6-10.3); Carbon Dioxide 28 mEq/L (23-29); Chloride 104 mEq/L (98-107); Globulin 3.7 g/dL (2.4-3.5); Glucose 73 mg/dL (70-105); Osmolality,Calculated 291 (280-300); Potassium 4.4 mEq/L (3.5-5.1); Sodium 139 mEq/L (136-145); Total Protein 7.5 g/dL (6.4-8.9); eGFR For African Americans > 60 (> 60); eGFR For Non-African Americans > 60 (> 60)
[2020-10-06 10:47] LABS: Bacteria,Urine Many per hpf (None-Few); RBC,Urine 30-50 per hpf (0-3); Squamous Epithelial Cell,Urine None Seen per hpf (None-Few); WBC,Urine 50-100 per hpf (0-3)
[2020-10-06] MEDS ORDERED: Piperacillin/Tazobactam 3.375 GM in 0.9 % Sodium Chloride Mini Bag 100 ML IVPB ONE (10:51)
[2020-10-06] MEDS ORDERED: Ondansetron 4 MG/2 ML VIAL IVP PRN (11:07)
[2020-10-06] MEDS ORDERED: Acetaminophen 325 MG TABLET PO PRN (11:07)
[2020-10-06] MEDS ORDERED: Naloxone 0.4 MG/ML INJ IVP PRN (11:07)
[2020-10-06] MEDS ORDERED: Albuterol 2.5 MG/3 ML NEBULIZER IH PRN (11:13)
[2020-10-06] MEDS: 0.9 % Sodium Chloride 1,000 ML IVC SCH (12:25)
[2020-10-06] MEDS: Baclofen 10 MG TABLET GTUBE SCH ×2 (14:46→20:49)
[2020-10-06] MEDS: Piperacillin/Tazobactam 3.375 GM in 0.9 % Sodium Chloride Mini Bag 100 ML IVPB SCH (15:48)
[2020-10-06] MEDS: polyethylene glycoL 3350 17 GM POWD.PACK GTUBE SCH (17:38)
[2020-10-06] MEDS ORDERED: D5% in Water 1,000 ML IVC PRN (20:09)
[2020-10-06] MEDS ORDERED: Dextrose Gel 15 GM/37.5 ML TUBE PO PRN ×2 (20:09)
[2020-10-06] MEDS: lamoTRIgine 100 MG TABLET GTUBE SCH (20:48)
[2020-10-06] MEDS: Docusate Oral Soln 100 MG/10 ML UDC GTUBE SCH (20:48)
[2020-10-06] MEDS: Saliva Stimulant 44.3ml BOTTLE PO SCH (20:49)
[2020-10-07] MEDS: Piperacillin/Tazobactam 3.375 GM in 0.9 % Sodium Chloride Mini Bag 100 ML IVPB SCH ×3 (01:13→17:25)
[2020-10-07] MEDS: 0.9 % Sodium Chloride 1,000 ML IVC SCH (01:49)
[2020-10-07 05:49] LABS: Basophils # 0.1 K/mcL (0.0-0.2); Basophils % 1.3 %; Eosinophils # 0.2 K/mcL (0.0-0.6); Eosinophils % 3.9 %; Hematocrit 44.4 % (35.3-44.9); Hemoglobin 14.6 g/dL (11.5-15.4); Immature Granulocytes % 0.2 % (0-4); Lymphocytes % 40.3 %; Mean Corpuscular HGB Conc 32.9 g/dL (31.6-35.5); Mean Corpuscular Hemoglobin 31.5 pg (28.0-33.3); Mean Corpuscular Volume 95.9 fL (83.0-100.0); Mean Platelet Volume 10.7 fL (9.4-12.4); Monocytes # 0.5 K/mcL (0.0-1.3); Monocytes % 10.5 %; Platelet Count 279 K/mcL (140-400); Red Blood Count 4.63 M/mcL (3.82-4.97); Red Cell Distribution Width 16.8 % (11.5-14.5); Segmented Neutrophils % 43.8 %; White Blood Count 4.6 K/mcL (4.3-11.1)
[2020-10-07 06:08] LABS: Lymphocytes # 1.9 K/mcL (0.6-4.6)
[2020-10-07 06:20] LABS: BUN/Creatinine Ratio 30 (6-26); Blood Urea Nitrogen 19 mg/dL (6-20); Calcium 9.2 mg/dL (8.6-10.3); Carbon Dioxide 28 mEq/L (23-29); Chloride 107 mEq/L (98-107); Glucose 63 mg/dL (70-105); Magnesium 1.9 mg/dL (1.6-2.6); Osmolality,Calculated 294 (280-300); Sodium 142 mEq/L (136-145); eGFR For African Americans > 60 (> 60); eGFR For Non-African Americans > 60 (> 60)
[2020-10-07] MEDS: *HR* Enoxaparin 40 MG/0.4 ML SYRINGE SQ SCH (06:35)
[2020-10-07] MEDS: Multivitamin Liquid 15 ML UDC GTUBE SCH (09:26)
[2020-10-07] MEDS: Docusate Oral Soln 100 MG/10 ML UDC GTUBE SCH ×2 (09:27→21:27)
[2020-10-07] MEDS: lamoTRIgine 100 MG TABLET GTUBE SCH ×3 (09:28→22:11)
[2020-10-07] MEDS: Baclofen 10 MG TABLET GTUBE SCH ×4 (09:28→22:11)
[2020-10-07] MEDS: Cholecalciferol (D-3) 1,000 UNIT (25MCG) TABLET GTUBE SCH (09:28)
[2020-10-07] MEDS: Potassium Chloride Elixir 20 MEQ/15 ML UDC GTUBE SCH (09:28)
[2020-10-07] MEDS: [UNRECOGNIZED DRUG - OTHER] NS SCH (09:30)
[2020-10-07] MEDS: Saliva Stimulant 44.3ml BOTTLE PO SCH ×2 (09:30→21:26)
[2020-10-07] MEDS: Artificial Tears SOLN 15 ML BOTTLE OP SCH (10:10)
[2020-10-07] MEDS: polyethylene glycoL 3350 17 GM POWD.PACK GTUBE SCH ×2 (17:26→17:47)
[2020-10-08] MEDS: Piperacillin/Tazobactam 3.375 GM in 0.9 % Sodium Chloride Mini Bag 100 ML IVPB SCH ×3 (00:01→17:50)
[2020-10-08] MEDS: *HR* Enoxaparin 40 MG/0.4 ML SYRINGE SQ SCH (05:52)
[2020-10-08] MEDS: *HR* Dextrose 50 % in Water (Vial) 50 ML VIAL IVP PRN ×2 (06:29→10:20)
[2020-10-08 09:16] LABS: Basophils # 0.1 K/mcL (0.0-0.2); Basophils % 0.9 %; Eosinophils # 0.3 K/mcL (0.0-0.6); Eosinophils % 3.1 %; Hematocrit 46.3 % (35.3-44.9); Hemoglobin 15.8 g/dL (11.5-15.4); Immature Granulocytes % 0.6 % (0-4); Lymphocytes # 3.5 K/mcL (0.6-4.6); Lymphocytes % 33.6 %; Mean Corpuscular HGB Conc 34.1 g/dL (31.6-35.5); Mean Corpuscular Volume 93.7 fL (83.0-100.0); Mean Platelet Volume 10.5 fL (9.4-12.4); Monocytes # 0.8 K/mcL (0.0-1.3); Monocytes % 7.8 %; Neutrophils # 5.6 K/mcL (1.6-8.9); Platelet Count 294 K/mcL (140-400); Red Blood Count 4.94 M/mcL (3.82-4.97); Red Cell Distribution Width 16.8 % (11.5-14.5); White Blood Count 10.3 K/mcL (4.3-11.1)
[2020-10-08 09:30] LABS: Alanine Aminotransferase 22 Units/L (7-52); Albumin 3.3 g/dL (3.5-5.7); Albumin/Globulin Ratio 0.9 (1.1-2.2); Alkaline Phosphatase 104 Units/L (34-104); Aspartate Amino Transferase 21 Units/L (13-39); BUN/Creatinine Ratio 19 (6-26); Bilirubin,Total 0.3 mg/dL (0.3-1.0); Blood Urea Nitrogen 13 mg/dL (6-20); Calcium 9.6 mg/dL (8.6-10.3); Carbon Dioxide 23 mEq/L (23-29); Chloride 109 mEq/L (98-107); Globulin 3.5 g/dL (2.4-3.5); Glucose 75 mg/dL (70-105); Osmolality,Calculated 291 (280-300); Potassium 4.3 mEq/L (3.5-5.1); Sodium 141 mEq/L (136-145); Total Protein 6.8 g/dL (6.4-8.9); eGFR For African Americans > 60 (> 60); eGFR For Non-African Americans > 60 (> 60)
[2020-10-08] MEDS: Baclofen 10 MG TABLET GTUBE SCH ×3 (10:08→17:49)
[2020-10-08] MEDS: [UNRECOGNIZED DRUG - OTHER] NS SCH (10:08)
[2020-10-08] MEDS: lamoTRIgine 100 MG TABLET GTUBE SCH ×2 (10:08→17:56)
[2020-10-08] MEDS: Multivitamin Liquid 15 ML UDC GTUBE SCH (10:08)
[2020-10-08] MEDS: Docusate Oral Soln 100 MG/10 ML UDC GTUBE SCH ×2 (10:08→20:18)
[2020-10-08] MEDS: Cholecalciferol (D-3) 1,000 UNIT (25MCG) TABLET GTUBE SCH (10:09)
[2020-10-08] MEDS: Potassium Chloride Elixir 20 MEQ/15 ML UDC GTUBE SCH (10:09)
[2020-10-08] MEDS: Artificial Tears SOLN 15 ML BOTTLE OP SCH (10:10)
[2020-10-08] MEDS: Saliva Stimulant 44.3ml BOTTLE PO SCH ×2 (10:10→20:21)
[2020-10-08] MEDS: D5% in 0.45% NACL 1,000 ML IVC SCH ×2 (10:28→17:49)
[2020-10-08] MEDS: polyethylene glycoL 3350 17 GM POWD.PACK GTUBE SCH (17:50)
[2020-10-09] MEDS: Piperacillin/Tazobactam 3.375 GM in 0.9 % Sodium Chloride Mini Bag 100 ML IVPB SCH ×3 (00:03→17:42)
[2020-10-09] MEDS: D5% in 0.45% NACL 1,000 ML IVC SCH (01:50)
[2020-10-09] MEDS: *HR* Enoxaparin 40 MG/0.4 ML SYRINGE SQ SCH (05:57)
[2020-10-09] MEDS: Docusate Oral Soln 100 MG/10 ML UDC GTUBE SCH ×2 (09:38→23:12)
[2020-10-09] MEDS: Multivitamin Liquid 15 ML UDC GTUBE SCH (09:38)
[2020-10-09] MEDS: Baclofen 10 MG TABLET GTUBE SCH ×3 (09:39→23:12)
[2020-10-09] MEDS: Cholecalciferol (D-3) 1,000 UNIT (25MCG) TABLET GTUBE SCH (09:39)
[2020-10-09] MEDS: lamoTRIgine 100 MG TABLET GTUBE SCH ×2 (09:39→23:12)
[2020-10-09] MEDS: Potassium Chloride Elixir 20 MEQ/15 ML UDC GTUBE SCH (09:39)
[2020-10-09] MEDS: [UNRECOGNIZED DRUG - OTHER] NS SCH (09:40)
[2020-10-09] MEDS: Artificial Tears SOLN 15 ML BOTTLE OP SCH (09:50)
[2020-10-09] MEDS: Saliva Stimulant 44.3ml BOTTLE PO SCH ×2 (09:50→23:13)
[2020-10-09] MEDS: polyethylene glycoL 3350 17 GM POWD.PACK GTUBE SCH (17:42)
[2020-10-10] MEDS: Piperacillin/Tazobactam 3.375 GM in 0.9 % Sodium Chloride Mini Bag 100 ML IVPB SCH ×3 (01:07→16:36)
[2020-10-10] MEDS: *HR* Enoxaparin 40 MG/0.4 ML SYRINGE SQ SCH (05:47)
[2020-10-10] MEDS: Multivitamin Liquid 15 ML UDC GTUBE SCH (10:38)
[2020-10-10] MEDS: Cholecalciferol (D-3) 1,000 UNIT (25MCG) TABLET GTUBE SCH (10:38)
[2020-10-10] MEDS: Baclofen 10 MG TABLET GTUBE SCH ×3 (10:38→23:04)
[2020-10-10] MEDS: Docusate Oral Soln 100 MG/10 ML UDC GTUBE SCH ×2 (10:38→23:05)
[2020-10-10] MEDS: Potassium Chloride Elixir 20 MEQ/15 ML UDC GTUBE SCH (10:38)
[2020-10-10] MEDS: lamoTRIgine 100 MG TABLET GTUBE SCH ×2 (10:39→23:04)
[2020-10-10] MEDS: Artificial Tears SOLN 15 ML BOTTLE OP SCH (10:40)
[2020-10-10] MEDS: Saliva Stimulant 44.3ml BOTTLE PO SCH ×2 (10:40→23:05)
[2020-10-10] MEDS: Nitrofurantoin (BID) 100 MG CAPSULE PO SCH ×2 (11:33→16:35)
[2020-10-10] MEDS: [UNRECOGNIZED DRUG - OTHER] NS SCH (11:34)
[2020-10-10] MEDS: polyethylene glycoL 3350 17 GM POWD.PACK GTUBE SCH (16:37)
[2020-10-11] MEDS: Piperacillin/Tazobactam 3.375 GM in 0.9 % Sodium Chloride Mini Bag 100 ML IVPB SCH ×3 (01:05→15:16)
[2020-10-11] MEDS: *HR* Enoxaparin 40 MG/0.4 ML SYRINGE SQ SCH (05:48)
[2020-10-11] MEDS: Nitrofurantoin (BID) 100 MG CAPSULE PO SCH ×2 (09:00→16:19)
[2020-10-11] MEDS: Potassium Chloride Elixir 20 MEQ/15 ML UDC GTUBE SCH (09:00)
[2020-10-11] MEDS: lamoTRIgine 100 MG TABLET GTUBE SCH ×2 (09:00→22:18)
[2020-10-11] MEDS: Cholecalciferol (D-3) 1,000 UNIT (25MCG) TABLET GTUBE SCH (09:00)
[2020-10-11] MEDS: Baclofen 10 MG TABLET GTUBE SCH ×3 (09:00→22:18)
[2020-10-11] MEDS: Multivitamin Liquid 15 ML UDC GTUBE SCH (09:00)
[2020-10-11] MEDS: Docusate Oral Soln 100 MG/10 ML UDC GTUBE SCH ×2 (09:00→22:18)
[2020-10-11] MEDS: Saliva Stimulant 44.3ml BOTTLE PO SCH ×2 (09:01→22:20)
[2020-10-11] MEDS: Artificial Tears SOLN 15 ML BOTTLE OP SCH (09:02)
[2020-10-11] MEDS: [UNRECOGNIZED DRUG - OTHER] NS SCH (09:02)
[2020-10-11] MEDS: polyethylene glycoL 3350 17 GM POWD.PACK GTUBE SCH (16:19)
[2020-10-12] MEDS: Piperacillin/Tazobactam 3.375 GM in 0.9 % Sodium Chloride Mini Bag 100 ML IVPB SCH ×2 (01:08→09:34)
[2020-10-12] MEDS: *HR* Enoxaparin 40 MG/0.4 ML SYRINGE SQ SCH (06:07)
[2020-10-12 06:16] VITALS: BP 143/90
[2020-10-12] MEDS: Docusate Oral Soln 100 MG/10 ML UDC GTUBE SCH (09:33)
[2020-10-12] MEDS: lamoTRIgine 100 MG TABLET GTUBE SCH (09:34)
[2020-10-12] MEDS: Cholecalciferol (D-3) 1,000 UNIT (25MCG) TABLET GTUBE SCH (09:34)
[2020-10-12] MEDS: Nitrofurantoin (BID) 100 MG CAPSULE PO SCH (09:34)
[2020-10-12] MEDS: Baclofen 10 MG TABLET GTUBE SCH (09:34)
[2020-10-12] MEDS: Multivitamin Liquid 15 ML UDC GTUBE SCH (09:34)
[2020-10-12] MEDS: Potassium Chloride Elixir 20 MEQ/15 ML UDC GTUBE SCH (09:34)
[2020-10-12] MEDS: Artificial Tears SOLN 15 ML BOTTLE OP SCH (09:35)
[2020-10-12] MEDS: Saliva Stimulant 44.3ml BOTTLE PO SCH (09:35)
[2020-10-12] MEDS: [UNRECOGNIZED DRUG - OTHER] NS SCH (09:36)
== END 2020-10-12 14:48 | disposition home or self-care (01) | DRG 463 ==
LOC: EMEROOPIK 10:01 → INPPIK 10:01
PROVIDERS: ADMIT Family Medicine; ATTEND Family Medicine